=== PATIENT | female | born 1950 | race Hispanic/Latino ===

== ENCOUNTER 2023-02-09 13:54 | Emergency (ER) | payer OTHER ==
--- OUTSIDE RECORDS SUMMARY | 2023-02-09 13:59 | XMS REPORT | Continuity of Care Document ---
:1950 Author Organization [facility] t Address [address] [place] [address] [place] [id number] Care Team Providers Name Role Phone SANTANA PAYAN Primary Care Physician Unavailable Jillian Payan Attending Clinician Unavailable AIDEE VARGAS Attending Clinician Unavailable Lab, Ousmane Huertas Attending Clinician Unavailable Doctor Unassigned, [facility] Attending Clinician Unavailable Payers Payer Name Policy Type Policy Number Effective Date Expiration Date S [facility] [id number] 2020 [employer] [place] 00:00:00 PPO [facility] 1 [id number] 2021 Common TRS/ERS [facility] PPO 00:00:00 [facility] Problems Condition Condition Condition Status Onset Resolution Last Treating Co mments Source Name Details Category Date Date Treatment Clinician Date Bipolar 1 Bipolar 1 Problem Com mon disorder disorder [facility] [place] Problem Common lesion of lesion of Spir it lung lung - [facility] [id number] Nicotine Problem Commo n dependence Spirit , - [facility]I cigarettes St , with [facility] unspecifie Medica [facility] d Center nicotine-i nduced disorders Malignant Malignant Problem Com mon neoplasm neoplasm Spirit of female of - CHI breast unspecifie St d site of [facility] female Center breast Tobacco Smokes Problem Common user cigarettes [facility] Age-relate Age-relate Problem C ommon d d Spirit osteoporos osteoporos - CHI is is without St current [facility] pathologic Medica l al Center fracture Nicotine Nicotine Problem Commo n dependence dependence Sp jamil - [facility] [id number] Non-season Problem Com mon al Spirit allergic - CHI rhinitis St due to [facility] Solitary Solitary Problem Commo n pulmonary pulmonary Spir it nodule nodule - [facility] [id number] Primary Problem Common insomnia [facility] Adjustment Adjustment Problem C ommon disorder disorder Spirit with with - CHI anxiety anxiety [facility] [id number] Sleep Problem Common disorder, Spirit unspecifie - [facility]I d [facility] Bipolar Affective Problem Commo n affective bipolar Spirit disorder disorder - [facility] [id number] Bipolar 1 Problem Comm on disorder, Spirit depressed - [facility] [id number] PTSD Problem Common (post-trau Spirit matic - CHI stress St disorder) [facility] [id number] Mixed Problem Common stress and Spirit urge - CHI urinary [facility] incontinen [facility] Allergies, Adverse Reactions, Alerts Allergy Allergy Status Severity Reaction(s) Onset Inactive Treating Comm ents Source Name Type Date Date Clinician HYDROCOD DRUG Active Hallucinates Un andie ONE-ACET 1-17 ity of AMINOPHE 00:00: [address] Hydrocod Drug Active Hallucinatio Un andie one-Acet Allergy ns 1-17 ity of aminophe 00:00: [address] NO KNOWN Drug Active Univers ALLERGIE [facility] Social History Social Habit Start Date Stop Date Quantity Comments Source History of Current Smoker Common Spi rit - [facility] Use [facility] Exposure to 2022-10-17 2022-10-27 Not sure [facility]-CoV-2 00:00:00 15:03:00 [facility] (event) Branch Alcohol intake 2022-10-27 2022-10-27 Lifetime University of 00:00:00 00:00:00 non-drinker [facility] (finding) [place] Tobacco use and 2022-10-27 2022-10-27 Smokeless tobacco Un iversity of exposure 00:00:00 00:00:00 non-user [facility] Sex Assigned At [birth year] Univers[facility] 00:00:00 00:00:00 [facility] Smoking Status Start Date Stop Date Source Tobacco smoking consumption [facility] [place] [facility] Never smoked tobacco [facility] Current Smoker 2022-09-25 00:00:00 Common Spiri t - [facility] Ce nter Medications Ordered Filled Start Stop Current Ordering Indication Dosage Frequency Signature Comments Components Source Medication Medication Date Date Medication? Clinician (SIG) Name Name clonazePAM 2021-09 Yes .5mg Take 0.5 Uni vers 0.5 mg 2-22 mg by ity of tablet 00:00: mouth as [place] 00 needed. Medical Branch letrozole 2021-09 Yes 2.5mg Take 2.5 Uni vers 2.5 mg 2-22 mg by ity of tablet 00:00: mouth [place] 00 daily Medical Branch clonazePAM 2021-09 Yes .5mg Take 0.5 Uni vers 0.5 mg 2-22 mg by ity of tablet 00:00: mouth as [place] 00 needed. Medical Branch letrozole 2021-09 Yes 2.5mg Take 2.5 Uni vers 2.5 mg 2-22 mg by ity of tablet 00:00: mouth [place] daily Medical Branch clonazePAM 2021-09 Yes .5mg Take 0.5 Uni vers 0.5 mg 2-22 mg by ity of tablet 00:00: mouth as [place] 00 needed. Medical Branch letrozole 2021-09 Yes 2.5mg Take 2.5 Uni vers 2.5 mg 2-22 mg by ity of tablet 00:00: mouth [place] 00 daily Medical Branch clonazePAM 2021-09 Yes .5mg Take 0.5 Uni vers 0.5 mg 2-22 mg by ity of tablet 00:00: mouth as [place] 00 needed. Medical Branch letrozole 2021-09 Yes 2.5mg Take 2.5 Uni vers 2.5 mg 2-22 mg by ity of tablet 00:00: mouth [place] 00 daily Medical Branch clonazePAM 2021-09 Yes .5mg Take 0.5 Uni vers 0.5 mg 2-22 mg by ity of tablet 00:00: mouth as [place] 00 needed. Medical Branch letrozole 2021-09 Yes 2.5mg Take 2.5 Uni vers 2.5 mg 2-22 mg by ity of tablet 00:00: mouth [place] 00 daily Medical Branch clonazePAM 2021-09 Yes .5mg Take 0.5 Uni vers 0.5 mg 2-22 mg by ity of tablet 00:00: mouth as [place] 00 needed. Medical Branch letrozole 2021-09 Yes 2.5mg Take 2.5 Uni vers 2.5 mg 2-22 mg by ity of tablet 00:00: mouth [place] daily Medical Branch clonazePAM 2021-09 Yes .5mg Take 0.5 Uni vers 0.5 mg 2-22 mg by ity of tablet 00:00: mouth as [place] needed. Medical Branch letrozole 2021-09 Yes 2.5mg Take 2.5 Uni vers 2.5 mg 2-22 mg by ity of tablet 00:00: mouth daily Medical Branch clonazePAM 2021-09 Yes .5mg Take 0.5 Uni vers 0.5 mg 2-22 mg by ity of tablet 00:00: mouth as [place] needed. Medical Branch letrozole 2021-09 Yes 2.5mg Take 2.5 Uni vers 2.5 mg 2-22 mg by ity of tablet 00:00: mouth [place] daily Medical Branch busPIRone 5 2021-09 Yes 5mg Take 5 mg U nivers mg tablet 2-08 by mouth ity of 00:00: in the morning Medical and 5 mg Branch at noon and 5 mg in the evening. DULoxetine 2021-09 Yes 60mg Take 60 mg U nivers 60 mg 2-08 by mouth ity of capsule 00:00: in the [place] morning. Medical Branch busPIRone 5 2021-09 Yes 5mg Take 5 mg U nivers mg tablet 2-08 by mouth ity of 00:00: in the morning Medical and 5 mg Branch at noon and 5 mg in the evening. DULoxetine 2021-09 Yes 60mg Take 60 mg U nivers 60 mg 2-08 by mouth ity of capsule 00:00: in the [place] morning. Medical Branch busPIRone 5 2021-09 Yes 5mg Take 5 mg U nivers mg tablet 2-08 by mouth ity of 00:00: in the morning Medical and 5 mg Branch at noon and 5 mg in the evening. DULoxetine 2021-09 Yes 60mg Take 60 mg U nivers 60 mg 2-08 by mouth ity of capsule 00:00: in the [place] morning. Medical Branch busPIRone 5 2021-09 Yes 5mg Take 5 mg U nivers mg tablet 2-08 by mouth ity of 00:00: in the [place] morning Medical and 5 mg Branch at noon and 5 mg in the evening. DULoxetine 2021-09 Yes 60mg Take 60 mg U nivers 60 mg 2-08 by mouth ity of capsule 00:00: in the [place] morning. Medical Branch busPIRone 5 2021-09 Yes 5mg Take 5 mg U nivers mg tablet 2-08 by mouth ity of 00:00: in the [place] morning Medical and 5 mg Branch at noon and 5 mg in the evening. DULoxetine 2021-09 Yes 60mg Take 60 mg U nivers 60 mg 2-08 by mouth ity of capsule 00:00: in the [place] morning. Medical Branch busPIRone 5 2021-09 Yes 5mg Take 5 mg U nivers mg tablet 2-08 by mouth ity of 00:00: in the [place] morning Medical and 5 mg Branch at noon and 5 mg in the evening. DULoxetine 2021-09 Yes 60mg Take 60 mg U nivers 60 mg 2-08 by mouth ity of capsule 00:00: in the [place] morning. Medical Branch busPIRone 5 2021-09 Yes 5mg Take 5 mg U nivers mg tablet 2-08 by mouth ity of 00:00: in the [place] morning Medical and 5 mg Branch at noon and 5 mg in the evening. DULoxetine 2021-09 Yes 60mg Take 60 mg U nivers 60 mg 2-08 by mouth ity of capsule 00:00: in the [place] morning. Medical Branch busPIRone 5 2021-09 Yes 5mg Take 5 mg U nivers mg tablet 2-08 by mouth ity of 00:00: in the [place] morning Medical and 5 mg Branch at noon and 5 mg in the evening. DULoxetine 2021-09 Yes 60mg Take 60 mg U nivers 60 mg 2-08 by mouth ity of capsule 00:00: in the [place] morning. Medical Branch DULoxetine 2021-09 Yes 30mg Take 30 mg U nivers 30 mg 1-28 by mouth ity of capsule 00:00: in the [place] morning. Medical Branch DULoxetine 2021-09 Yes 30mg Take 30 mg U nivers 30 mg 1-28 by mouth ity of capsule 00:00: in the [place] morning. Medical Branch DULoxetine 2021-09 Yes 30mg Take 30 mg U nivers 30 mg 1-28 by mouth ity of capsule 00:00: in the [place] morning. Medical Branch DULoxetine 2021-09 Yes 30mg Take 30 mg U nivers 30 mg 1-28 by mouth ity of capsule 00:00: in the [place] morning. Medical Branch DULoxetine 2021-09 Yes 30mg Take 30 mg U nivers 30 mg 1-28 by mouth ity of capsule 00:00: in the [place] morning. Medical Branch DULoxetine 2021-09 Yes 30mg Take 30 mg U nivers 30 mg 1-28 by mouth ity of capsule 00:00: in the [place] morning. Medical Branch DULoxetine 2021-09 Yes 30mg Take 30 mg U nivers 30 mg 1-28 by mouth ity of capsule 00:00: in the [place] morning. Medical Branch DULoxetine 2021-09 Yes 30mg Take 30 mg U nivers 30 mg 1-28 by mouth ity of capsule 00:00: in the [place] morning. Medical Branch doxepin 10 2021-09 Yes 10mg Take 10 mg U nivers mg capsule 1-07 by mouth ity o f 00:00: at [place] [address] bedtime. Medical Branch doxepin 10 2021-09 Yes 10mg Take 10 mg U nivers mg capsule 1-07 by mouth ity o f 00:00: at [place] [address] bedtime. Medical Branch doxepin 10 2021-09 Yes 10mg Take 10 mg U nivers mg capsule 1-07 by mouth ity o f 00:00: at [place] [address] bedtime. Medical Branch doxepin 10 2021-09 Yes 10mg Take 10 mg U nivers mg capsule 1-07 by mouth ity o f 00:00: at [place] [address] bedtime. Medical Branch doxepin 10 2021-09 Yes 10mg Take 10 mg U nivers mg capsule 1-07 by mouth ity o f 00:00: at [place] [address] bedtime. Medical Branch doxepin 10 2021-09 Yes 10mg Take 10 mg U nivers mg capsule 1-07 by mouth ity o f 00:00: at [place] [address] bedtime. Medical Branch doxepin 10 2021-09 Yes 10mg Take 10 mg U nivers mg capsule 1-07 by mouth ity o f 00:00: at [place] [address] bedtime. Medical Branch doxepin 10 2021-09 Yes 10mg Take 10 mg U nivers mg capsule -07 by mouth ity o f 00:00: at [place] [address] bedtime. Medical Branch Doxylamine Doxylamine No 1{table QD Doxylamine Succinate Succinate 3-08 t_at_be Succinate (Sleep) 25 (Sleep) 25 00:00: dtime_a (Sleep) 25 MG MG 00 s_neede MG d} Doxylamine Doxylamine No 1{table QD Doxylamine Succinate Succinate 3-08 t_at_be Succinate (Sleep) 25 (Sleep) 25 00:00: dtime_a (Sleep) 25 MG MG 00 s_neede MG d} Doxylamine Doxylamine No 1{table QD Doxylamine Succinate Succinate 3-08 t_at_be Succinate (Sleep) 25 (Sleep) 25 00:00: dtime_a (Sleep) 25 MG MG 00 s_neede MG d} Doxylamine Doxylamine No 1{table QD Doxylamine Succinate Succinate 3-08 t_at_be Succinate (Sleep) 25 (Sleep) 25 00:00: dtime_a (Sleep) 25 MG MG 00 s_neede MG d} Doxylamine Doxylamine No 1{table QD Doxylamine Succinate Succinate 3-08 t_at_be Succinate (Sleep) 25 (Sleep) 25 00:00: dtime_a (Sleep) 25 MG MG 00 s_neede MG d} Doxylamine Doxylamine No 1{table QD Doxylamine Succinate Succinate 3-08 t_at_be Succinate (Sleep) 25 (Sleep) 25 00:00: dtime_a (Sleep) 25 MG MG 00 s_neede MG d} Doxylamine Doxylamine No 1{table QD Doxylamine Succinate Succinate 3-08 t_at_be Succinate (Sleep) 25 (Sleep) 25 00:00: dtime_a (Sleep) 25 MG MG 00 s_neede MG d} Doxylamine Doxylamine No 1{table QD Doxylamine Succinate Succinate 3-08 t_at_be Succinate (Sleep) 25 (Sleep) 25 00:00: dtime_a (Sleep) 25 MG MG 00 s_neede MG d} Doxylamine Doxylamine No 1{table QD Doxylamine Succinate Succinate 3-08 t_at_be Succinate (Sleep) 25 (Sleep) 25 00:00: dtime_a (Sleep) 25 MG MG 00 s_neede MG d} Doxylamine Doxylamine No 1{table QD Doxylamine Succinate Succinate 3-08 t_at_be Succinate (Sleep) 25 (Sleep) 25 00:00: dtime_a (Sleep) 25 MG MG 00 s_neede MG d} Doxylamine Doxylamine No 1{table QD Doxylamine Succinate Succinate 3-08 t_at_be Succinate (Sleep) 25 (Sleep) 25 00:00: dtime_a (Sleep) 25 MG MG 00 s_neede MG d} Doxylamine Doxylamine No 1{table QD Doxylamine Succinate Succinate 3-08 t_at_be Succinate (Sleep) 25 (Sleep) 25 00:00: dtime_a (Sleep) 25 MG MG 00 s_neede MG d} Doxylamine Doxylamine No 1{table QD Doxylamine Succinate Succinate 3-08 t_at_be Succinate (Sleep) 25 (Sleep) 25 00:00: dtime_a (Sleep) 25 MG MG 00 s_neede MG d} Doxylamine Doxylamine 0 No 1{table QD Doxylamine Succinate Succinate 3-08 t_at_be Succinate (Sleep) 25 (Sleep) 25 00:00: dtime_a (Sleep) 25 MG MG 00 s_neede MG d} Toradol Toradol No 30mg Common (Ketorolac) (Ketorolac) 2-28 S pirit 00:00: - [facility] [place] No 40mg Common (Triamcinol (Triamcinol 2-28 S pirit one) one) 00:00: - [facility]I [facility] Toradol Toradol No 30mg Common (Ketorolac) (Ketorolac) 2-28 S pirit 00:00: - [facility] 2021-0 No 40mg Common (Triamcinol (Triamcinol 2-28 S pirit one) one) 00:00: - CHI 00 [facility] Toradol Toradol 2021-0 No 30mg Common (Ketorolac) (Ketorolac) 2-28 S pirit 00:00: - CHI 00 [facility] Kenalog Kenalog 2021-0 No 40mg Common (Triamcinol (Triamcinol 2-28 S pirit one) one) 00:00: - CHI 00 [facility] Toradol Toradol 2021-0 No 30mg Common (Ketorolac) (Ketorolac) 2-28 S pirit 00:00: - CHI 00 [facility] Nelly Kenalog 2021-0 No 40mg Common (Triamcinol (Triamcinol 2-28 S pirit one) one) 00:00: - CHI 00 [facility] Toradol Toradol 2021-0 No 30mg Common (Ketorolac) (Ketorolac) 2-28 S pirit 00:00: - CHI 00 [facility] [place] Kenalog 2021-0 No 40mg Common (Triamcinol (Triamcinol 2-28 S pirit one) one) 00:00: - CHI 00 [facility] Toradol Toradol 2021-0 No 30mg Common (Ketorolac) (Ketorolac) 2-28 S pirit 00:00: - CHI 00 [facility] Nelly Kenalog 2021-0 No 40mg Common (Triamcinol (Triamcinol 2-28 S pirit one) one) 00:00: - CHI 00 [facility] Toradol Toradol 2021-0 No 30mg Common (Ketorolac) (Ketorolac) 2-28 S pirit 00:00: - CHI 00 [facility] Kenalog Kenalog 2021-0 No 40mg Common (Triamcinol (Triamcinol 2-28 S pirit one) one) 00:00: - CHI 00 [facility] Toradol Toradol 2021-0 No 30mg Common (Ketorolac) (Ketorolac) 2-28 S pirit 00:00: - CHI 00 [facility] Kenalog Kenalog 2021-0 No 40mg Common (Triamcinol (Triamcinol 2-28 S pirit one) one) 00:00: - CHI 00 [facility] Toradol Toradol 2021-0 No 30mg Common (Ketorolac) (Ketorolac) 2-28 S pirit 00:00: - CHI 00 [facility] Kenalog Kenalog 2021-0 No 40mg Common (Triamcinol (Triamcinol 2-28 S pirit one) one) 00:00: - CHI 00 [facility] Toradol Toradol 2021-0 No 30mg Common (Ketorolac) (Ketorolac) 2-28 S pirit 00:00: - CHI [facility] Kenalog Kenalog 2021-0 No 40mg Common (Triamcinol (Triamcinol 2-28 S pirit one) one) 00:00: - [facility]I [facility] Toradol Toradol 2021-0 No 30mg Common (Ketorolac) (Ketorolac) 2-28 S pirit 00:00: - CHI 00 [facility] Lucasalog Kenalog 2021-0 No 40mg Common (Triamcinol (Triamcinol 2-28 S pirit one) one) 00:00: - CHI 00 [facility] Toradol Toradol 2021-0 No 30mg Common (Ketorolac) (Ketorolac) 2-28 S pirit 00:00: - CHI [facility] Lucasalog Kenalog 2021-0 No 40mg Common (Triamcinol (Triamcinol 2-28 S pirit one) one) 00:00: - CHI 00 [facility] Toradol Toradol 2021-0 No 30mg Common (Ketorolac) (Ketorolac) 2-28 S pirit 00:00: - CHI 00 [facility] Kenalog Kenalog 2021-0 No 40mg Common (Triamcinol (Triamcinol 2-28 S pirit one) one) 00:00: - [facility] Toradol Toradol 2021-0 No 30mg Common (Ketorolac) (Ketorolac) 2-28 S pirit 00:00: - CHI 00 [facility] Kenalog Kenalog 2021-0 No 40mg Common (Triamcinol (Triamcinol 2-28 S pirit one) one) 00:00: - CHI 00 [facility] Toradol Toradol 2021-0 No 30mg Common (Ketorolac) (Ketorolac) 2-28 S pirit 00:00: - CHI 00 [facility] Kenalog Kenalog 2021-0 No 40mg Common (Triamcinol (Triamcinol 2-28 S pirit one) one) 00:00: - CHI 00 [facility] Oxybutynin Oxybutynin 2021-0 2- No 1{table QD Oxybutynin Chloride 5 Chloride 5 11-11- t} Chloride 5 MG MG 00:00: 00:00 MG 00 :00 Oxybutynin Oxybutynin 2021-0 2- No 1{table QD Oxybutynin Chloride 5 Chloride 5 11-11-06 t} Chloride 5 MG MG 00:00: 00:00 MG 00 :00 Oxybutynin Oxybutynin 2021-0 2- No 1{table QD Oxybutynin Chloride 5 Chloride 5 11-11-06 t} Chloride 5 MG MG 00:00: 00:00 MG 00 :00 tiZANidine tiZANidine 2021-0 2021- No 1{table QD tiZANidine HCl 2 MG HCl 2 MG 11-11- t_as_ne HCl 2 MG 00:00: 00:00 eded} 00 :00 tiZANidine tiZANidine 2021-0 2- No 1{table QD tiZANidine HCl 2 MG HCl 2 MG 11-11- t_as_ne HCl 2 MG 00:00: 00:00 eded} 00 :00 Oxybutynin Oxybutynin 2021-0 2- No 1{table QD Oxybutynin Chloride 5 Chloride 5 11-1130 t} Chloride 5 MG MG 00:00: 00:00 MG 00 :00 tiZANidine tiZANidine 2021-0 2- No 1{table QD tiZANidine HCl 2 MG HCl 2 MG 11-11 t_as_ne HCl 2 MG 00:00: 00:00 eded} 00 :00 Loratadine Loratadine 2021- No 1{table QD Loratadine 10 MG 10 MG 11-11 t} 10 MG 00:00: 00:00 00 :00 tiZANidine tiZANidine 2021- No 1{table QD tiZANidine HCl 2 MG HCl 2 MG 11-11 t_as_ne HCl 2 MG 00:00: 00:00 eded} 00 :00 Loratadine Loratadine 2021- No 1{table QD Loratadine 10 MG 10 MG 11-11 t} 10 MG 00:00: 00:00 00 :00 Femara 2.5 Femara 2.5 No 1{table QD Femara 2.5 MG MG t} MG LaMICtal 25 LaMICtal 25 No 1{table LaMICtal MG MG t} 25 MG Calcium + D Calcium + D No Calcium + D Fluticasone Fluticasone No 1{spray QD Fluticason Propionate Propionate _in_eac e 50 MCG/ACT 50 MCG/ACT h_nostr Propionate il} 50 MCG/ACT Cymbalta 30 Cymbalta 30 No 1{capsu QD Cymbalta MG MG le} 30 MG busPIRone busPIRone No 1{table TID busPIRone HCl 5 MG HCl 5 MG t} HCl 5 MG clonazePAM clonazePAM No clonazePAM 0.5 MG 0.5 MG 0.5 MG Zinc Zinc No Zinc Cymbalta 60 Cymbalta 60 No 1{capsu QD Cymbalta MG MG le} 60 MG Multiminera Multiminera No Multiminer l Plus l Plus al Plus Vitamin C Vitamin C No Vitamin C Vitamin C Vitamin C No Vitamin C Calcium + D Calcium + D No Calcium + D busPIRone busPIRone No 1{table TID busPIRone HCl 5 MG HCl 5 MG t} HCl 5 MG Femara 2.5 Femara 2.5 No 1{table QD Femara 2.5 MG MG t} MG LaMICtal 25 LaMICtal 25 No 1{table LaMICtal MG MG t} 25 MG Multiminera Multiminera No Multiminer l Plus l Plus al Plus clonazePAM clonazePAM No clonazePAM 0.5 MG 0.5 MG 0.5 MG Fluticasone Fluticasone No Fluticason Propionate Propionate e 50 MCG/ACT 50 MCG/ACT Propionate 50 MCG/ACT Zinc Zinc No Zinc Cymbalta 60 Cymbalta 60 No 1{capsu QD Cymbalta MG MG le} 60 MG Cymbalta 30 Cymbalta 30 No 1{capsu QD Cymbalta MG MG le} 30 MG clonazePAM clonazePAM No clonazePAM 0.5 MG 0.5 MG 0.5 MG Fluticasone Fluticasone No Fluticason Propionate Propionate e 50 MCG/ACT 50 MCG/ACT Propionate 50 MCG/ACT Femara 2.5 Femara 2.5 No 1{table QD Femara 2.5 MG MG t} MG busPIRone busPIRone No 1{table TID busPIRone HCl 5 MG HCl 5 MG t} HCl 5 MG Multiminera Multiminera No Multiminer l Plus l Plus al Plus Cymbalta 30 Cymbalta 30 No 1{capsu QD Cymbalta MG MG le} 30 MG Calcium + D Calcium + D No Calcium + D Zinc Zinc No Zinc LaMICtal 25 LaMICtal 25 No 1{table LaMICtal MG MG t} 25 MG Cymbalta 60 Cymbalta 60 No 1{capsu QD Cymbalta MG MG le} 60 MG Vitamin C Vitamin C No Vitamin C clonazePAM clonazePAM No clonazePAM 0.5 MG 0.5 MG 0.5 MG Fluticasone Fluticasone No Fluticason Propionate Propionate e 50 MCG/ACT 50 MCG/ACT Propionate 50 MCG/ACT Femara 2.5 Femara 2.5 No 1{table QD Femara 2.5 MG MG t} MG busPIRone busPIRone No 1{table TID busPIRone HCl 5 MG HCl 5 MG t} HCl 5 MG Multiminera Multiminera No Multiminer l Plus l Plus al Plus Cymbalta 30 Cymbalta 30 No 1{capsu QD Cymbalta MG MG le} 30 MG Calcium + D Calcium + D No Calcium + D Zinc Zinc No Zinc LaMICtal 25 LaMICtal 25 No 1{table LaMICtal MG MG t} 25 MG Cymbalta 60 Cymbalta 60 No 1{capsu QD Cymbalta MG MG le} 60 MG Vitamin C Vitamin C No Vitamin C busPIRone busPIRone No 1{table TID busPIRone HCl 5 MG HCl 5 MG t} HCl 5 MG Vitamin C Vitamin C No Vitamin C tiZANidine tiZANidine No 1{table QD tiZANidine HCl 4 MG HCl 4 MG t_as_ne HCl 4 MG eded} LaMICtal 25 LaMICtal 25 No 1{table LaMICtal MG MG t} 25 MG Zinc Zinc No Zinc Multiminera Multiminera No Multiminer l Plus l Plus al Plus Cymbalta 30 Cymbalta 30 No 1{capsu QD Cymbalta MG MG le} 30 MG clonazePAM clonazePAM No clonazePAM 0.5 MG 0.5 MG 0.5 MG Femara 2.5 Femara 2.5 No 1{table QD Femara 2.5 MG MG t} MG Calcium + D Calcium + D No Calcium + D Fluticasone Fluticasone No Fluticason Propionate Propionate e 50 MCG/ACT 50 MCG/ACT Propionate 50 MCG/ACT Cymbalta 60 Cymbalta 60 No 1{capsu QD Cymbalta MG MG le} 60 MG busPIRone busPIRone No 1{table TID busPIRone HCl 5 MG HCl 5 MG t} HCl 5 MG Vitamin C Vitamin C No Vitamin C tiZANidine tiZANidine No 1{table QD tiZANidine HCl 4 MG HCl 4 MG t_as_ne HCl 4 MG eded} LaMICtal 25 LaMICtal 25 No 1{table LaMICtal MG MG t} 25 MG Zinc Zinc No Zinc Multiminera Multiminera No Multiminer l Plus l Plus al Plus Cymbalta 30 Cymbalta 30 No 1{capsu QD Cymbalta MG MG le} 30 MG clonazePAM clonazePAM No clonazePAM 0.5 MG 0.5 MG 0.5 MG Femara 2.5 Femara 2.5 No 1{table QD Femara 2.5 MG MG t} MG Calcium + D Calcium + D No Calcium + D Fluticasone Fluticasone No Fluticason Propionate Propionate e 50 MCG/ACT 50 MCG/ACT Propionate 50 MCG/ACT Cymbalta 60 Cymbalta 60 No 1{capsu QD Cymbalta MG MG le} 60 MG busPIRone busPIRone No 1{table TID busPIRone HCl 5 MG HCl 5 MG t} HCl 5 MG Vitamin C Vitamin C No Vitamin C tiZANidine tiZANidine No 1{table QD tiZANidine HCl 4 MG HCl 4 MG t_as_ne HCl 4 MG eded} LaMICtal 25 LaMICtal 25 No 1{table LaMICtal MG MG t} 25 MG Zinc Zinc No Zinc Multiminera Multiminera No Multiminer l Plus l Plus al Plus Cymbalta 30 Cymbalta 30 No 1{capsu QD Cymbalta MG MG le} 30 MG clonazePAM clonazePAM No clonazePAM 0.5 MG 0.5 MG 0.5 MG Femara 2.5 Femara 2.5 No 1{table QD Femara 2.5 MG MG t} MG Calcium + D Calcium + D No Calcium + D Fluticasone Fluticasone No Fluticason Propionate Propionate e 50 MCG/ACT 50 MCG/ACT Propionate 50 MCG/ACT Cymbalta 60 Cymbalta 60 No 1{capsu QD Cymbalta MG MG le} 60 MG Femara 2.5 Femara 2.5 No 1{table QD Femara 2.5 MG MG t} MG Loratadine Loratadine No Loratadine 10 MG 10 MG 10 MG tiZANidine tiZANidine No 1{table QD tiZANidine HCl 4 MG HCl 4 MG t_as_ne HCl 4 MG eded} LaMICtal 25 LaMICtal 25 No 1{table LaMICtal MG MG t} 25 MG Multiminera Multiminera No Multiminer l Plus l Plus al Plus busPIRone busPIRone No 1{table TID busPIRone HCl 5 MG HCl 5 MG t} HCl 5 MG Vitamin C Vitamin C No Vitamin C Calcium + D Calcium + D No Calcium + D Cymbalta 60 Cymbalta 60 No 1{capsu QD Cymbalta MG MG le} 60 MG Zinc Zinc No Zinc Fluticasone Fluticasone No Fluticason Propionate Propionate e 50 MCG/ACT 50 MCG/ACT Propionate 50 MCG/ACT Cymbalta 30 Cymbalta 30 No 1{capsu QD Cymbalta MG MG le} 30 MG clonazePAM clonazePAM No clonazePAM 0.5 MG 0.5 MG 0.5 MG Femara 2.5 Femara 2.5 No 1{table QD Femara 2.5 MG MG t} MG Loratadine Loratadine No Loratadine 10 MG 10 MG 10 MG tiZANidine tiZANidine No 1{table QD tiZANidine HCl 4 MG HCl 4 MG t_as_ne HCl 4 MG eded} LaMICtal 25 LaMICtal 25 No 1{table LaMICtal MG MG t} 25 MG Multiminera Multiminera No Multiminer l Plus l Plus al Plus busPIRone busPIRone No 1{table TID busPIRone HCl 5 MG HCl 5 MG t} HCl 5 MG Vitamin C Vitamin C No Vitamin C Calcium + D Calcium + D No Calcium + D Cymbalta 60 Cymbalta 60 No 1{capsu QD Cymbalta MG MG le} 60 MG Zinc Zinc No Zinc Fluticasone Fluticasone No Fluticason Propionate Propionate e 50 MCG/ACT 50 MCG/ACT Propionate 50 MCG/ACT Cymbalta 30 Cymbalta 30 No 1{capsu QD Cymbalta MG MG le} 30 MG clonazePAM clonazePAM No clonazePAM 0.5 MG 0.5 MG 0.5 MG Cymbalta 60 Cymbalta 60 No 1{capsu QD Cymbalta MG MG le} 60 MG Fluticasone Fluticasone No Fluticason Propionate Propionate e 50 MCG/ACT 50 MCG/ACT Propionate 50 MCG/ACT Doxepin HCl Doxepin HCl No 1{capsu TID Doxepin 10 MG 10 MG le_with HCl 10 MG _food} LaMICtal 25 LaMICtal 25 No 1{table LaMICtal MG MG t} 25 MG Cymbalta 30 Cymbalta 30 No 1{capsu QD Cymbalta MG MG le} 30 MG Zinc Zinc No Zinc busPIRone busPIRone No 1{table TID busPIRone HCl 5 MG HCl 5 MG t} HCl 5 MG Femara 2.5 Femara 2.5 No 1{table QD Femara 2.5 MG MG t} MG Calcium + D Calcium + D No Calcium + D Multiminera Multiminera No Multiminer l Plus l Plus al Plus Loratadine Loratadine No Loratadine 10 MG 10 MG 10 MG Vitamin C Vitamin C No Vitamin C clonazePAM clonazePAM No clonazePAM 0.5 MG 0.5 MG 0.5 MG Zinc Zinc No Zinc busPIRone busPIRone No 1{table TID busPIRone HCl 5 MG HCl 5 MG t} HCl 5 MG Doxepin HCl Doxepin HCl No 1{capsu TID Doxepin 10 MG 10 MG le_with HCl 10 MG _food} Fluticasone Fluticasone No Fluticason Propionate Propionate e 50 MCG/ACT 50 MCG/ACT Propionate 50 MCG/ACT Multiminera Multiminera No Multiminer l Plus l Plus al Plus Cymbalta 30 Cymbalta 30 No 1{capsu QD Cymbalta MG MG le} 30 MG Vitamin C Vitamin C No Vitamin C Loratadine Loratadine No Loratadine 10 MG 10 MG 10 MG Cymbalta 60 Cymbalta 60 No 1{capsu QD Cymbalta MG MG le} 60 MG Femara 2.5 Femara 2.5 No 1{table QD Femara 2.5 MG MG t} MG LaMICtal 25 LaMICtal 25 No 1{table LaMICtal MG MG t} 25 MG Calcium + D Calcium + D No Calcium + D clonazePAM clonazePAM No clonazePAM 0.5 MG 0.5 MG 0.5 MG Zinc Zinc No Zinc busPIRone busPIRone No 1{table TID busPIRone HCl 5 MG HCl 5 MG t} HCl 5 MG Doxepin HCl Doxepin HCl No 1{capsu TID Doxepin 10 MG 10 MG le_with HCl 10 MG _food} Fluticasone Fluticasone No Fluticason Propionate Propionate e 50 MCG/ACT 50 MCG/ACT Propionate 50 MCG/ACT Multiminera Multiminera No Multiminer l Plus l Plus al Plus Cymbalta 30 Cymbalta 30 No 1{capsu QD Cymbalta MG MG le} 30 MG Vitamin C Vitamin C No Vitamin C Loratadine Loratadine No Loratadine 10 MG 10 MG 10 MG Cymbalta 60 Cymbalta 60 No 1{capsu QD Cymbalta MG MG le} 60 MG Femara 2.5 Femara 2.5 No 1{table QD Femara 2.5 MG MG t} MG LaMICtal 25 LaMICtal 25 No 1{table LaMICtal MG MG t} 25 MG Calcium + D Calcium + D No Calcium + D clonazePAM clonazePAM No clonazePAM 0.5 MG 0.5 MG 0.5 MG Multiminera Multiminera No Multiminer l Plus l Plus al Plus Cymbalta 30 Cymbalta 30 No 1{capsu QD Cymbalta MG MG le} 30 MG Fluticasone Fluticasone No Fluticason Propionate Propionate e 50 MCG/ACT 50 MCG/ACT Propionate 50 MCG/ACT Vitamin C Vitamin C No Vitamin C Zinc Zinc No Zinc Femara 2.5 Femara 2.5 No 1{table QD Femara 2.5 MG MG t} MG Calcium + D Calcium + D No Calcium + D busPIRone busPIRone No 1{table TID busPIRone HCl 5 MG HCl 5 MG t} HCl 5 MG clonazePAM clonazePAM No clonazePAM 0.5 MG 0.5 MG 0.5 MG Loratadine Loratadine No Loratadine 10 MG 10 MG 10 MG LaMICtal 25 LaMICtal 25 No 1{table LaMICtal MG MG t} 25 MG Cymbalta 60 Cymbalta 60 No 1{capsu QD Cymbalta MG MG le} 60 MG Doxepin HCl Doxepin HCl No 1{capsu TID Doxepin 10 MG 10 MG le_with HCl 10 MG _food} Cymbalta 60 Cymbalta 60 No 1{capsu QD Cymbalta MG MG le} 60 MG Fluticasone Fluticasone No Fluticason Propionate Propionate e 50 MCG/ACT 50 MCG/ACT Propionate 50 MCG/ACT Doxepin HCl Doxepin HCl No 1{capsu TID Doxepin 10 MG 10 MG le_with HCl 10 MG _food} LaMICtal 25 LaMICtal 25 No 1{table LaMICtal MG MG t} 25 MG Cymbalta 30 Cymbalta 30 No 1{capsu QD Cymbalta MG MG le} 30 MG Zinc Zinc No Zinc busPIRone busPIRone No 1{table TID busPIRone HCl 5 MG HCl 5 MG t} HCl 5 MG Femara 2.5 Femara 2.5 No 1{table QD Femara 2.5 MG MG t} MG Calcium + D Calcium + D No Calcium + D Multiminera Multiminera No Multiminer l Plus l Plus al Plus Loratadine Loratadine No Loratadine 10 MG 10 MG 10 MG Vitamin C Vitamin C No Vitamin C clonazePAM clonazePAM No clonazePAM 0.5 MG 0.5 MG 0.5 MG Zinc Zinc No Zinc busPIRone busPIRone No 1{table TID busPIRone HCl 5 MG HCl 5 MG t} HCl 5 MG Doxepin HCl Doxepin HCl No 1{capsu TID Doxepin 10 MG 10 MG le_with HCl 10 MG _food} Fluticasone Fluticasone No Fluticason Propionate Propionate e 50 MCG/ACT 50 MCG/ACT Propionate 50 MCG/ACT Multiminera Multiminera No Multiminer l Plus l Plus al Plus Cymbalta 30 Cymbalta 30 No 1{capsu QD Cymbalta MG MG le} 30 MG Vitamin C Vitamin C No Vitamin C Loratadine Loratadine No Loratadine 10 MG 10 MG 10 MG Cymbalta 60 Cymbalta 60 No 1{capsu QD Cymbalta MG MG le} 60 MG Femara 2.5 Femara 2.5 No 1{table QD Femara 2.5 MG MG t} MG LaMICtal 25 LaMICtal 25 No 1{table LaMICtal MG MG t} 25 MG Calcium + D Calcium + D No Calcium + D clonazePAM clonazePAM No clonazePAM 0.5 MG 0.5 MG 0.5 MG Immunizations Ordered Filled Immunization Date Status Comments Sourc e Immunization Name Name FLUZONE HIGH DOSE FLUZONE HIGH DOSE 2021-09-13 [facility] - [facility] OVER [facility] 13:44:[facility] FLUZONE HIGH DOSE FLUZONE HIGH DOSE 2021-09-13 Completed [facility] - OVER 65 OVER 65 13:44:00 [facility] FLUZONE HIGH DOSE FLUZONE HIGH DOSE 2021-09-13 Completed [facility] - OVER 65 OVER 65 13:44:00 [facility] FLUZONE HIGH DOSE FLUZONE HIGH DOSE 2021-09-13 Completed [facility] - OVER 65 OVER 65 13:44:00 [facility] FLUZONE HIGH DOSE FLUZONE HIGH DOSE 2021-09-13 Completed [facility] - OVER 65 OVER 65 13:44:00 [facility] FLUZONE HIGH DOSE FLUZONE HIGH DOSE 2021-09-13 Completed [facility] - OVER 65 OVER 65 13:44:00 [facility] FLUZONE HIGH DOSE FLUZONE HIGH DOSE 2021-09-13 Completed [facility] - OVER 65 OVER 65 13:44:00 [facility] FLUZONE HIGH DOSE FLUZONE HIGH DOSE 2021-09-13 Completed [facility] - OVER 65 OVER 65 13:44:00 [facility] FLUZONE HIGH DOSE FLUZONE HIGH DOSE 2021-09-13 Completed [facility] - OVER 65 OVER 65 13:44:00 [facility] FLUZONE HIGH DOSE FLUZONE HIGH DOSE 2021-09-13 Completed [facility] - OVER 65 OVER 65 13:44:00 [facility] FLUZONE HIGH DOSE FLUZONE HIGH DOSE 2021-09-13 Completed [facility] - OVER 65 OVER 65 13:44:00 [facility] FLUZONE HIGH DOSE FLUZONE HIGH DOSE 2021-09-13 Completed [facility] - OVER 65 OVER 65 13:44:00 [facility] FLUZONE HIGH DOSE FLUZONE HIGH DOSE 2021-09-13 Completed [facility] - OVER 65 OVER 65 13:44:00 [facility] FLUZONE HIGH DOSE FLUZONE HIGH DOSE 2021-09-13 Completed [facility] - OVER 65 OVER 65 13:44:00 [facility] FLUZONE HIGH DOSE FLUZONE HIGH DOSE 2021-09-13 Completed [facility] - OVER 65 OVER 65 13:44:00 [facility] SARS-COV-2 COVID-19 2020-12-22 Completed [facility] of PFIZER VACCINE 00:00:00 [facility] SARS-COV-2 COVID-19 2020-12-22 Completed Unive rsity of PFIZER VACCINE 00:00:00 [facility] SARS-COV-2 COVID-19 2020-12-22 Completed Unive rsity of PFIZER VACCINE 00:00:00 [facility] SARS-COV-2 COVID-19 2020-12-22 Completed [facility]ive rsity of PFIZER VACCINE 00:00:00 [facility] SARS-COV-2 COVID-19 2020-12-22 Completed [facility]ive rsity of PFIZER VACCINE 00:00:00 [facility] SARS-COV-2 COVID-19 2020-12-22 Completed [facility]ive rsity of PFIZER VACCINE 00:00:00 [facility] SARS-COV-2 COVID-19 2020-12-22 Completed [facility]ive rs[facility] of PFIZER VACCINE 00:00:00 [facility] SARS-COV-2 COVID-19 2020-12-22 Completed Unive rsity of PFIZER VACCINE 00:00:00 [facility] SARS-COV-2 COVID-19 2020-12-22 Completed Unive rsity of PFIZER VACCINE 00:00:00 [facility] SARS-COV-2 COVID-19 2020-12-01 Completed Unive rsity of PFIZER VACCINE 00:00:00 [facility] SARS-COV-2 COVID-19 2020-12-01 Completed Unive rsity of PFIZER VACCINE 00:00:00 [facility] SARS-COV-2 COVID-19 2020-12-01 Completed [facility]ive rsity of PFIZER VACCINE 00:00:00 [facility] SARS-COV-2 COVID-19 2020-12-01 Completed [facility]ive rsity of PFIZER VACCINE 00:00:00 [facility] SARS-COV-2 COVID-19 2020-12-01 Completed [facility]ive rs[facility] of PFIZER VACCINE 00:00:00 [facility] SARS-COV-2 COVID-19 2020-12-01 Completed [facility]ive rsity of PFIZER VACCINE 00:00:00 [facility] SARS-COV-2 COVID-19 2020-12-01 Completed [facility]ive rs[facility] of PFIZER VACCINE 00:00:00 [facility] SARS-COV-2 COVID-19 2020-12-01 Completed [facility] rs[facility] of PFIZER VACCINE 00:00:00 [facility] SARS-COV-2 COVID-19 2020-12-01 Completed [facility]ive rs[facility] of PFIZER VACCINE 00:00:00 [facility] Vital Signs Vital Name Observation Time Observation Value Comments Source Systolic blood 2022-10-27 21:34:00 145 mm[Hg] [facility]iver [facility] of pressure [facility] Diastolic blood 2022-10-27 21:34:00 75 mm[Hg] [facility]ive rs[facility] of pressure [facility] Heart rate 2022-10-27 21:34:00 84 /min [facility] Body height 2022-10-27 21:28:00 154.9 cm [facility] Body weight 2022-10-27 21:28:00 49.442 kg Universi ty [facility] BMI 2022-10-27 21:28:00 20.60 kg/m2 Universi ty [facility] Systolic blood 2022-09-30 17:15:00 129 mm[Hg] Univer sity of pressure [facility] Diastolic blood 2022-09-30 17:15:00 85 mm[Hg] Unive rsity of [facility] Heart rate 2022-09-30 17:14:00 84 /min Universi ty [facility] Body height 2022-09-30 17:14:00 154.9 cm Universi ty [facility] Body weight 2022-09-30 17:14:00 49.442 kg Universi [facility] BMI 2022-09-30 17:14:00 20.60 kg/m2 [facility] Oxygen saturation in 2022-09-30 17:14:00 100 /min [facility] Arterial blood by [facility] Pulse oximetry Branch height 2022-06-11 08:00:00 61.5 [in_i] [facility] weight 2022-06-11 08:00:00 109.6 [lb_av] [facility] temperature 2022-06-11 08:00:00 98.6 [degF] [facility] bmi 2022-06-11 08:00:00 20.37 kg/m2 [facility] oximetry 2022-06-11 08:00:00 97 % [facility] respiratory rate 2022-06-11 08:00:00 16 /min Comm on [facility] blood pressure 2022-06-11 08:00:00 137 mm[Hg] [facility] systolic [facility] blood pressure 2022-06-11 08:00:00 66 mm[Hg] [facility] diastolic [facility] height 2022-02-21 13:00:00 61 [in_i] [facility] weight 2022-02-21 13:00:00 110.4 [lb_av] Common [facility] temperature 2022-02-21 13:00:00 97.6 [degF] [facility] bmi 2022-02-21 13:00:00 20.86 kg/m2 [facility] oximetry 2022-02-21 13:00:00 98 % Common [facility] respiratory rate 2022-02-21 13:00:00 16 /min Comm on [facility] blood pressure 2022-02-21 13:00:00 132 mm[Hg] Common [facility] - systolic [facility] blood pressure 2022-02-21 13:00:00 72 mm[Hg] Common [facility] - diastolic [facility] height 2022-02-21 13:00:00 61 [in_i] Common [facility] weight 2022-02-21 13:00:00 110.4 [lb_av] [facility] temperature 2022-02-21 13:00:00 97.6 [degF] Common [facility] bmi 2022-02-21 13:00:00 20.86 kg/m2 [facility] oximetry 2022-02-21 13:00:00 98 % Common [facility] respiratory rate 2022-02-21 13:00:00 16 /min Comm on [facility] blood pressure 2022-02-21 13:00:00 132 mm[Hg] [facility] blood pressure 2022-02-21 13:00:00 72 mm[Hg] [facility] height 2021-11-19 15:40:00 61 [in_i] Common [facility] weight 2021-11-19 15:40:00 114.8 [lb_av] Common [facility] temperature 2021-11-19 15:40:00 97.6 [degF] Common [facility] bmi 2021-11-19 15:40:00 21.69 kg/m2 Common [facility] oximetry 2021-11-19 15:40:00 98 % [facility] respiratory rate 2021-11-19 15:40:00 16 /min Comm on [facility] blood pressure 2021-11-19 15:40:00 135 mm[Hg] Common [facility] - systolic [facility] blood pressure 2021-11-19 15:40:00 75 mm[Hg] Common [facility] diastolic [facility] height 2021-11-11 13:20:00 61 [in_i] [facility] weight 2021-11-11 13:20:00 118.2 [lb_av] [facility] temperature 2021-11-11 13:20:00 97.3 [degF] [facility] bmi 2021-11-11 13:20:00 22.33 kg/m2 [facility] oximetry 2021-11-11 13:20:00 95 % [facility] respiratory rate 2021-11-11 13:20:00 16 /min Comm on [facility] blood pressure 2021-11-11 13:20:00 128 mm[Hg] Common [facility] systolic [facility] blood pressure 2021-11-11 13:20:00 76 mm[Hg] Common [facility] diastolic [facility] Procedures Procedure Date / Time Performed Performing Clinician [facility] e ASSIGNMENT OF BENEFITS 2022-09-30 16:59:40 Doctor Unassigned, No [facility] Encounters Start End Encounter Admission Attending Care Care Encounter Source Date/Time Date/Time Type Type Clinicians Facility Department ID 2022-12-30 Outpatient Payan, STLMLC [facility] [id number] Common 16:01:00 Jillian [id number] [facility] 2022-09-23 [facility] [id number] Common 07:59:01 Jillian [id number] [facility] 2022-02-19 [facility] [id number] Common 09:06:03 Jillian [id number] [facility] 2021-11-15 Out[facility] [id number] Common 14:28:01 Jillian [facility] 2021-11-11 Outpatient Payan, STARISLC [facility] [id number] Common 13:26:03 Jillian [facility] 2022-10-27 2022-10-27 Outpatient R GURWINDER [facility] [id number] Univers 15:30:00 17:26:37 qamar [facility] 2022-10-27 2022-10-27 Office [facility] [id number] Univers 15:30:00 17:26:37 Visit [employer] [id number] it y of [place] [id number] Pablo as ABBIE?BLEA [phone] [address] OFFICE [facility] 2022-10-03 2022-10-03 Telephone [facility] [id number] Univers 00:00:00 00:00:00 [employer] [id number] it y of [place] [id number] Pablo as ABBIE?BLEA [phone] [address] OFFICE [facility] 2022-10-03 2022-10-03 Telephone [facility] [id number] Univers 00:00:00 00:00:00 [employer] [id number] it y of [place] [id number] Pablo as ABBIE?BLEA [phone] [address] OFFICE [facility] 2022-10-03 2022-10-03 (TEL) [facility] [id number] Co mmon 00:00:00 00:00:00 [facility] 2022-10-02 2022-10-02 Telephone Gurwinder [facility] [id number] Univers 00:00:00 00:00:00 [employer] [id number] it y of [place] [id number] Pablo as ABBIE?BLEA [phone] [address] MEDICAL OFFICE [facility] 2022-09-30 2022-09-30 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, 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 [facility] [id number] Univers 12:00:00 12:15:00 Visit Aidee Vargas [facility] [id number] ity of [place] [id number] Pablo as ABBIE?BLEA [phone] [address] OFFICE [facility] 2022-09-30 2022-09-30 [facility] [id number] Univers 11:00:00 11:55:20 AIDEE ity of [facility] 2022-09-30 2022-09-30 Office [facility] [id number] Univers 11:00:00 11:55:20 Visit [facility] [id number] it y of [place] [id number] Pablo as ABBIE?BLEA [phone] [address] OFFICE [facility] 2022-09-30 2022-09-30 Orders Doctor VIC [id number] Univers 00:00:00 00:00:00 Only Unassigned, ZITA [id number] [facility] [id number] Pablo as [phone] [address] 2022-09-04 2022-09-04 (TEL) STLC STLMLC [id number] Co mmon 00:00:00 00:00:00 [facility] 2022-06-18 2022-06-18 (TEL) STLMLC STL[facility]C [id number] Co mmon 00:00:00 00:00:00 [facility] 2022-06-11 2022-06-11 OFFICE STLMLC STLMLC [id number] Co mmon 00:00:00 00:00:00 [facility] PT - CHI LEVEL 4 [facility] 2022-04-22 2022-04-22 (TEL) STLMLC STLMLC [id number] Co mmon 00:00:00 00:00:00 [facility] 2022-04-10 2022-04-10 (TEL) STLMLC STLMLC [id number] Co mmon 00:00:00 00:00:00 [facility] 2022-02-21 2022-02-21 (TEL) STLMLC STLMLC [id number] Co mmon 00:00:00 00:00:00 [facility] 2022-02-21 2022-02-21 (MCR WELL) STLMLC STLMLC [id number] Common 00:00:00 00:00:00 [facility] 2022-02-21 2022-02-21 OFFICE STLMLC STLMLC [id number] Co mmon 00:00:00 00:00:00 [facility] EST[facility] PT - CHI LEVEL 4 [facility] 2022-01-28 2022-01-28 (TEL) STLMLC STLMLC [id number] Co mmon 00:00:00 00:00:00 [facility] 2022-01-03 2022-01-03 (TEL) STLMLC STLMLC [id number] Co mmon 00:00:00 00:00:00 [facility] 2021-11-19 2021-11-19 OFFICE STLMLC STLMLC [id number] Co mmon 00:00:00 00:00:00 VISIT [facility] it PT LEVEL 3 - [facility] 2021-11-11 2021-11-11 OFFICE STLMLC STLMLC [id number] Co mmon 00:00:00 00:00:00 VISIT NEW Spir it PT LEVEL 4 - [facility] Results This patient has no known results.
[2023-02-09] MEDS ORDERED: DIAZEPAM 5 MG TABLET ONE (14:36)
[2023-02-09 14:46] LABS: Specific Gravity < 1.005 (1.005-1.030); Urine Bilirubin NEGATIVE (Negative); Urine Blood Negative (Negative); Urine Clarity Clear (Clear); Urine Color Colorless (Yellow); Urine Glucose NEGATIVE (Negative); Urine Protein NEGATIVE (Negative); Urine Urobilinogen Normal (Normal)
[2023-02-09 14:52] LABS: Absolute Lymphocytes (CBC) 1.4 K/uL (0.7-4.9); Hematocrit 40.4 % (36.0-45.0); Lymphocytes % 23.5 % (15.3-44.8); MCV 89.6 fL (80-100); MPV 8.4 fL (7.6-11.3); RBC Red Blood Cell Count 4.51 M/uL (3.86-4.86)
[2023-02-09 14:56] LABS: Barbiturates NEGATIVE (NEGATIVE); Benzodiazepines NEGATIVE (NEGATIVE); Cocaine NEGATIVE (NEGATIVE); METHAMPHETAM NEGATIVE (NEGATIVE); Methadone NEGATIVE (NEGATIVE); Opiates NEGATIVE (NEGATIVE); Phencyclidine NEGATIVE (NEGATIVE); THC Cannibis NEGATIVE (NEGATIVE)
[2023-02-09 14:59] LABS: Protime INR 0.89
[2023-02-09 15:06] LABS: Albumin 4.4 g/dL (3.4-5.0); Bilirubin Direct 0.2 mg/dL (0-0.2); Bilirubin Indirect, Calculated 0.3 mg/dL (0.2-0.8); Bilirubin Total 0.5 mg/dL (0.2-1.0); Potassium 3.5 mEq/L (3.5-5.1); Protein, Total 8.1 g/dL (6.4-8.2)
--- NOTE | 2023-02-09 15:27 | EDPHYS ---
Physician Documentation [facility] Name: Christi Bland Age: 72 yrs Sex: Female : 1950 Arrival Date: 02/09/2023 Time: 13:54 Bed 16 Private MD: ED Physician Alton Rodgers HPI: 02/09 14:26 This 72 yrs old Female presents to ER via EMS with complaints of agitation, rn anxiety. 14:26 The patient presents to the emergency department with anxiety, depression. Onset: The rn symptoms/episode began/occurred at an unknown time. Severity of symptoms: At their worst the symptoms were moderate in the emergency department the symptoms are unchanged. The patient has experienced similar episodes in the past. The patient has been recently seen by a physician:. Pt reports doesn't feel right, recently had biopsy of uterus for vaginal bleeding, taking a lot of vicodin lately, taken off her clonazepam. Denies suicidal or homicidal ideations, patient states "just tired". Denies intentional overdose. No chest pain/sob/abd pain. Reports not eating/drinking lately. . Historical: - Allergies: 14:02 Vicodin; mb9 - Home Meds: 14:02 Hydrocodone-Acetaminophen Oral [Active]; mb9 14:20 Cymbalta 60 mg oral capsule,delayed release (e.c.) [Active]; BuSpar Oral [Active]; mb9 - PMHx: 14:02 Anxiety; Depressive disorder; Bipolar disorder; mb9 14:20 breast cancer; mb9 - PSHx: 14:20 mastectomy; mb9 - Immunization history:: Adult Immunizations up to date. - Social history:: Smoking status: Patient reports the use of cigarette tobacco products, smokes one-half pack cigarettes per day. - Family history:: not pertinent. - Hospitalizations: : No recent hospitalization is reported. ROS: 14:26 Constitutional: Negative for fever, chills, and weight loss, Eyes: Negative for injury, rn pain, redness, and discharge, Cardiovascular: Negative for chest pain, palpitations, and edema, Respiratory: Negative for shortness of breath, cough, wheezing, and pleuritic chest pain, Abdomen/GI: Negative for abdominal pain, nausea, vomiting, diarrhea, and constipation, Back: Negative for injury and pain, : Negative for injury, bleeding, discharge, and swelling, MS/Extremity: Negative for injury and deformity, Skin: Negative for injury, rash, and discoloration, Neuro: Negative for headache, numbness, tingling, and seizure. Exam: 14:26 Constitutional: This is a well developed, well nourished patient who is awake, alert, rn emotional, tearful, agitated Head/Face: Normocephalic, atraumatic. ENT: dry MM Neck: No Meningismus. Cardiovascular: Regular rate and rhythm. No pulse deficits. Respiratory: No increased work of breathing, no retractions or nasal flaring. Abdomen/GI: soft, non-tender Skin: Warm, dry MS/ Extremity: Pulses equal, no cyanosis. Neurovascular intact. Full, normal range of motion. Equal circumference. Neuro: Awake and alert, GCS 15, oriented to person, place, time, and situation. Cranial nerves II-XII grossly intact. Motor strength 5/5 in all extremities. Sensory grossly intact. Cerebellar exam normal. 14:32 ECG was reviewed by the Attending Physician. rn Vital Signs: 14:01 BP 170 / 73; Pulse 84; Resp 18; Temp 97.9(O); Pulse Ox 100% on R/A; Weight 49.9 kg; mb9 Height 4 ft. 11 in. ; 14:50 Pulse 78; Resp 16; Pulse Ox 99% on R/A; mb9 15:28 BP 165 / 78; Pulse 68; Resp 16; Pulse Ox 100% ; mb9 14:01 Body Mass Index 22.22 (49.90 kg, 149.86 cm) mb9 MDM: 13:58 Patient medically screened. [facility] 15:23 Differential diagnosis: depression, anxiety. Differential diagnosis: drug withdrawal. rn Data reviewed: vital signs, nurses notes. Data reviewed: lab test result(s), EKG, and as a result, I will discharge patient. Care significantly affected by the following chronic conditions: anxiety, depression, bipolar. Counseling: I had a detailed discussion with the patient and/or guardian regarding: the historical points, exam findings, and any diagnostic results supporting the discharge/admit diagnosis, lab results, the need for outpatient follow up, to return to the emergency department if symptoms worsen or persist or if there are any questions or concerns that arise at home. Special discussion: I discussed with the patient/guardian in detail that at this point there is no indication for admission to the hospital. It is understood, however, that if the symptoms persist or worsen the patient needs to return immediately for re-evaluation. Based on the history and exam findings, there is no indication for further emergent testing or inpatient evaluation. I discussed with the patient/guardian the need to see the primary care provider for further evaluation of the symptoms. I discussed with the patient/guardian the need to see the psychiatrist for further evaluation of the symptoms. ED course: NO acute findings in blood work, stable vitals, feels much better after valium. Still denies suicidal or homicidal ideations. Family here to take her home and happy that we ruled out other causes. Tylenol level normal. Drug screen neg. Will dc home with return precautions. . 02/09 13:59 Order name: Acetaminophen; Complete Time: 15:12 rn 02/09 13:59 Order name: Basic Metabolic Panel; Complete Time: 15:12 02/09 13:59 Order name: CBC with Diff; Complete Time: 15:05 02/09 13:59 Order name: ETOH Level; Complete Time: 14:59 02/09 13:59 Order name: Hepatic Function; Complete Time: 15:12 02/09 13:59 Order name: PT-INR; Complete Time: 15:05 02/09 13:59 Order name: Ptt, Activated; Complete Time: 15:05 02/09 13:59 Order name: Salicylate; Complete Time: 15:05 02/09 13:59 Order name: Urinalysis w/ reflexes; Complete Time: 14:47 02/09 13:59 Order name: Urine Drug Screen; Complete Time: 14:59 02/09 13:59 Order name: EKG; Complete Time: 14:10 02/09 13:59 Order name: EKG - Nurse/Tech; Complete Time: 14:28 02/09 13:59 Order name: IV Saline Lock; Complete Time: 14:14 02/09 13:59 Order name: Labs collected and sent; Complete Time: 14:14 02/09 13:59 Order name: Suicide Screening ([place]); Complete Time: 14:00 rn EC:32 Rate is 69 beats/min. Rhythm is regular. QRS [place] is Normal. RI interval is normal. QRS rn interval is normal. QT interval is normal. No Q waves. T waves are Normal. No ST changes noted. Clinical impression: Normal ECG. Interpreted by me. Reviewed by me. Administered Medications: 14:31 Drug: Diazepam PO 5 mg Route: PO; mb9 15:29 Follow up: Response: No adverse reaction mb9 Disposition Summary: 02/09/23 15:27 Discharge Ordered Location: Home rn Problem: chronic rn Symptoms: have improved rn Condition: Stable rn Diagnosis - Anxiety disorder, unspecified rn - Bipolar disorder, unspecified rn Followup: rn - With: Private Physician - When: As needed - Reason: Recheck today's complaints, Re-evaluation by your physician Discharge Instructions: - Discharge Summary Sheet rn - Generalized Anxiety Disorder, Adult rn - Managing Bipolar Disorder rn - Supporting Someone With Bipolar Disorder rn Forms: - Medication Reconciliation Form rn - Thank You Letter rn - Antibiotic travel rn or - Prescription Opioid Use rn Signatures: Dispatcher [employer] EDAlton Gleason MD MD rn Roszak, Josh, PA PA jr8 Breneman, Mary Beth RN RN mb9 Corrections: (The following items were deleted from the chart) 14:04 14:02 Allergies: No Known Allergies; mb9 mb9
--- NOTE | 2023-02-09 15:27 | ER ---
Nurse's Notes [facility] Name: Christi Bland Age: 72 yrs Sex: Female : 1950 Arrival Date: 02/09/2023 Time: 13:54 Bed 16 Private MD: Diagnosis: Anxiety disorder, unspecified;Bipolar disorder, unspecified Presentation: 02/09 14:01 Chief complaint: EMS states: "toned out for allergic reaction. However pt hasn't been mb9 taking anxiety, depression, and bipolar medications. Pt denies any suicidal ideations.". Coronavirus screen: Vaccine status: Patient reports receiving the 2nd dose of the covid vaccine. Ebola Screen: No symptoms or risks identified at this time. Initial Sepsis Screen: Does the patient meet any 2 criteria? No. Patient's initial sepsis screen is negative. Does the patient have a suspected source of infection? No. Patient's initial sepsis screen is negative. Risk Assessment: Do you want to hurt yourself or someone else? Patient reports no desire to harm self or others. Onset of symptoms was February 09, 2023. 14:01 Method Of Arrival: EMS: [facility] mb9 14:01 Acuity: LETICIA 3 mb9 Historical: - Allergies: 14:02 Vicodin; mb9 - Home Meds: 14:02 Hydrocodone-Acetaminophen Oral [Active]; mb9 14:20 Cymbalta 60 mg oral capsule,delayed release (e.c.) [Active]; BuSpar Oral [Active]; mb9 - PMHx: 14:02 Anxiety; Depressive disorder; Bipolar disorder; mb9 14:20 breast cancer; mb9 - PSHx: 14:20 mastectomy; mb9 - Immunization history:: Adult Immunizations up to date. - Social history:: Smoking status: Patient reports the use of cigarette tobacco products, smokes one-half pack cigarettes per day. - Family history:: not pertinent. - Hospitalizations: : No recent hospitalization is reported. Screenin:23 [facility] ED Fall Risk Assessment (Adult) History of falling in the last 3 months, mb9 including since admission No falls in past 3 months (0 pts) Confusion or Disorientation Yes (5 pts) Intoxicated or Sedated No (0 pts) Impaired Gait No (0 pts) Mobility Assist Device Used No (0 pt) Altered Elimination No (0 pt) Score/Fall Risk Level 3 or more points = High Risk Oriented to surroundings, Maintained a safe environment, Educated pt \\T\\ family on fall prevention, incl call for assistance when getting out of bed. Abuse screen: Denies threats or abuse. Nutritional screening: No deficits noted. Tuberculosis screening: No symptoms or risk factors identified. Assessment: 14:21 General: Appears unkempt, Behavior is anxious, restless. General: Speech is rapid. mb9 Pain: Denies pain. Neuro: Level of Consciousness is awake, alert, obeys commands, Oriented to person, place, time, situation, Appropriate for age. Cardiovascular: Rhythm is regular. Respiratory: Airway is patent Respiratory effort is even, unlabored, Respiratory pattern is regular, symmetrical. GI: Abdomen is flat, non-distended. : Urine is clear. Derm: Skin is pink, warm \\T\\ dry. Musculoskeletal: Range of motion: intact in all extremities. 15:36 Reassessment: Patient appears in no apparent distress at this time. Patient and/or mb9 family updated on plan of care and expected duration. Pain level reassessed. Patient is alert, oriented x 3, equal unlabored respirations, skin warm/dry/pink. Vital Signs: 14:01 BP 170 / 73; Pulse 84; Resp 18; Temp 97.9(O); Pulse Ox 100% on R/A; Weight 49.9 kg; mb9 Height 4 ft. 11 in. ; 14:50 Pulse 78; Resp 16; Pulse Ox 99% on R/A; mb9 15:28 BP 165 / 78; Pulse 68; Resp 16; Pulse Ox 100% ; mb9 14:01 Body Mass Index 22.22 (49.90 kg, 149.86 cm) mb9 ED Course: 13:58 Patient arrived in ED. ld1 13:58 Jerel Brunson PA is PHCP. jr8 13:58 Alton Rodgers MD is Attending Physician. jr8 14:00 Arm band placed on. mb9 14:02 Triage completed. mb9 14:04 Christi Alonso, TONG is Primary Nurse. mb9 14:04 Placed in gown. Bed in low position. Call light in reach. Side rails up X 1. Client mb9 placed on continuous cardiac and pulse oximetry monitoring. NIBP monitoring applied. night monitor on. 14:19 No provider procedures requiring assistance completed. Inserted saline lock: 22 gauge mb9 in right antecubital area, using aseptic technique. Blood collected. 14:31 Acetaminophen Sent. mb9 14:31 Basic Metabolic Panel Sent. mb9 14:31 CBC with Diff Sent. mb9 14:31 ETOH Level Sent. mb9 14:31 PT-INR Sent. mb9 14:31 Ptt, Activated Sent. mb9 14:31 Salicylate Sent. mb9 14:31 Urinalysis w/ reflexes Sent. mb9 14:31 Urine Drug Screen Sent. mb9 15:30 IV discontinued, intact, bleeding controlled, No redness/swelling at site. Pressure mb9 dressing applied. Administered Medications: 14:31 Drug: Diazepam PO 5 mg Route: PO; mb9 15:29 Follow up: Response: No adverse reaction mb9 Medication: 14:22 VIS not applicable for this client. mb9 Outcome: 15:27 Discharge ordered by . rn 15:30 Discharged to home ambulatory. mb9 15:30 Condition: stable 15:30 Discharge instructions given to patient, Instructed on discharge instructions, follow up and referral plans. Demonstrated understanding of instructions, follow-up care. 15:36 Patient left the ED. mb9 Signatures: Alton Rodgers MD MD rn Roszak, Josh, PA PA jr8 Raya Dey RN RN ld1 Christi Alonso RN RN mb9 Corrections: (The following items were deleted from the chart) 14:04 14:02 Allergies: No Known Allergies; mb9 mb9
[2023-02-09 15:59] VITALS: TEMP 97.9
[2023-02-09 16:06] VITALS: BP 165/78; O2SAT 100
--- NOTE | 2023-02-11 07:11 | EKG ---
Test Date: 2023-02-09 Test Time: 14:25:59 Health Promotion Manager: BEATRICE MEASUREMENT RESULTS: Intervals: Rate: 69 WA: 128 QRSD: 74 QT: 440 QTc: 471 Joice: P: 53 WA: 128 QRS: 14 T: 40 INTERPRETIVE STATEMENTS: Normal sinus rhythm Normal ECG No previous ECG available for comparison Electronically Signed On 02-11-23 07:07:08 CDT by Cheng Jolley
== END 2023-02-09 15:36 | disposition home or self-care (01) ==
LOC: ER 13:54
DX: F31.9 Bipolar disorder, unspecified (principal); F17.210 Nicotine dependence, cigarettes, uncomplicated; Z85.3 Personal history of malignant neoplasm of breast; Z88.5 Allergy status to narcotic agent
CPT/HCPCS: 93005; 85025; 80048; 36415; 85610; 80076; 85730; 81003; 80307; 99284; G0480 ×3

== ENCOUNTER 2023-04-16 17:08 | Inpatient (IN) | payer OTHER ==
--- OUTSIDE RECORDS SUMMARY | 2023-04-16 17:12 | XMS REPORT | Continuity of Care Document ---
:1950 Author Organization [facility] t Address [address] [facility] [place] [address] Care Team Providers Name Role Phone SANTANA PAYAN Primary Care Physician Unavailable Jillian Payan Attending Clinician Unavailable AIDEE VARGAS Attending Clinician Unavailable Ousmane Alamo Attending Clinician Unavailable Doctor Unassigned, [place] Attending Clinician Unavailable Payers Payer Name Policy Type Policy Number Effective Date Expiration Date S [facility] [id number] 2020 [facility] [place] 00:[place]:00 P[place] [facility]Select 1 [id number] 2021 Common TRS/ERS [facility] PPO 00:00:00 [facility] Problems Condition Condition Condition Status Onset Resolution Last Treating Co mments Source Name Details Category Date Date Treatment Clinician Date Bipolar 1 Bipolar 1 Problem Com mon disorder disorder [facility] Problem Common lesion of lesion of Spir it lung lung - [facility] [id number] Nicotine Problem Commo n dependence Spirit , - CHI cigarettes St , with [facility] unspecifie Medica l d Center nicotine-i nduced disorders Malignant Malignant Problem Com mon neoplasm neoplasm Spirit of female of - CHI breast unspecifie St d site of [facility] female Center breast Tobacco Smokes Problem Common user cigarettes [facility] Age-relate Age-relate Problem C ommon d d Spirit osteoporos osteoporos - [facility] is is without St current [facility] pathologic Medica l al Center fracture Nicotine Nicotine Problem Commo n dependence dependence Sp jamil [facility] [id number] Non-season Problem Com mon al Spirit allergic - CHI rhinitis St due to [facility] Solitary Solitary Problem Commo n pulmonary pulmonary Spir it nodule nodule - [facility] [id number] Primary Problem Common insomnia Spirit [facility] Adjustment Adjustment Problem C ommon disorder disorder Spirit with with - CHI anxiety anxiety [facility] [id number] Sleep Problem Common disorder, Spirit unspecifie - CHI d [facility] Bipolar Affective Problem Commo n affective bipolar Spirit disorder disorder - [facility] [id number] Bipolar 1 Problem Comm on disorder, Spirit depressed - [facility] [id number] PTSD Problem Common (post-trau Spirit matic - CHI stress St disorder) [facility] [id number] Mixed Problem Common stress and Spirit urge - CHI urinary St incontinen [facility] Allergies, Adverse Reactions, Alerts Allergy Allergy Status Severity Reaction(s) Onset Inactive Treating Comm ents Source Name Type Date Date Clinician HYDROCOD DRUG Active Hallucinates Un andie ONE-ACET 1-17 ity of AMINOPHE 00:00: [address] Hydrocod Drug Active Hallucinatio Un andie one-Acet Allergy ns 1-17 ity of aminophe 00:00: [address] NO KNOWN Drug Active [facility] Social [facility] Social Habit Start Date Stop Date Quantity Comments Source History of Current Smoker Common Spi rit - Tobacco Use [facility] Exposure to 2022-10-17 2022-10-27 Not sure [facility]-CoV-2 00:00:00 15:03:00 [facility] (event) [facility] Alcohol intake 2022-10-27 2022-10-27 Lifetime University of 00:00:00 00:00:00 non-drinker [facility] (finding) [facility] Tobacco use and 2022-10-27 2022-10-27 Smokeless tobacco Un iversity of exposure 00:00:00 00:00:00 non-user [facility] Sex Assigned At [birth year] Universit y of 00:00:00 00:00:00 [facility] Smoking Status Start Date Stop Date Source Tobacco smoking consumption Univ ersity [facility] unknown Branch Never smoked tobacco [facility] Current Smoker 2022-09-25 00:00:00 Common Spiri t - CHI [facility] Ce nter Medications Ordered Filled Start Stop Current Ordering Indication Dosage Frequency Signature Comments Components Source Medication Medication Date Date Medication? Clinician (SIG) Name Name clonazePAM 2021-09 Yes .5mg Take 0.5 Uni vers 0.5 mg 2-22 mg by ity of tablet 00:00: mouth as needed. Medical Branch letrozole 2021-09 Yes 2.5mg Take 2.5 Uni vers 2.5 mg 2-22 mg by ity of tablet 00:00: mouth daily Medical Branch clonazePAM 2021-09 Yes .5mg Take 0.5 Uni vers 0.5 mg 2-22 mg by ity of tablet 00:00: mouth as needed. Medical Branch letrozole 2021-09 Yes 2.5mg Take 2.5 Uni vers 2.5 mg 2-22 mg by ity of tablet 00:00: mouth daily Medical Branch clonazePAM 2021-09 Yes .5mg Take 0.5 Uni vers 0.5 mg 2-22 mg by ity of tablet 00:00: mouth as needed. Medical Branch letrozole 2021-09 Yes 2.5mg Take 2.5 Uni vers 2.5 mg 2-22 mg by ity of tablet 00:00: mouth daily Medical Branch clonazePAM 2021-09 Yes .5mg Take 0.5 Uni vers 0.5 mg 2-22 mg by ity of tablet 00:00: mouth as needed. Medical Branch letrozole 2021-09 Yes 2.5mg Take 2.5 Uni vers 2.5 mg 2-22 mg by ity of tablet 00:00: mouth daily Medical Branch clonazePAM 2021-09 Yes .5mg Take 0.5 Uni vers 0.5 mg 2-22 mg by ity of tablet 00:00: mouth as needed. Medical Branch letrozole 2021-09 Yes 2.5mg Take 2.5 Uni vers 2.5 mg 2-22 mg by ity of tablet 00:00: mouth daily Medical Branch clonazePAM 2021-09 Yes .5mg Take 0.5 Uni vers 0.5 mg 2-22 mg by ity of tablet 00:00: mouth as needed. Medical Branch letrozole 2021-09 Yes 2.5mg Take 2.5 Uni vers 2.5 mg 2-22 mg by ity of tablet 00:00: mouth [place] daily Medical Branch clonazePAM 2021-09 Yes .5mg Take 0.5 Uni vers 0.5 mg 2-22 mg by ity of tablet 00:00: mouth as [place] [address] needed. Medical Branch letrozole 2021-09 Yes 2.5mg Take 2.5 Uni vers 2.5 mg 2-22 mg by ity of tablet 00:00: mouth [place] daily Medical Branch clonazePAM 2021-09 Yes .5mg Take 0.5 Uni vers 0.5 mg 2-22 mg by ity of tablet 00:00: mouth as [place] [address] needed. Medical Branch letrozole 2021-09 Yes 2.5mg Take 2.5 Uni vers 2.5 mg 2-22 mg by ity of tablet 00:00: mouth [place] daily Medical Branch busPIRone 5 2021-09 Yes 5mg Take 5 mg U nivers mg tablet 2-08 by mouth ity of 00:00: in the [place] morning Medical and 5 mg Branch at noon and 5 mg in the evening. DULoxetine 2021-09 Yes 60mg Take 60 mg U nivers 60 mg 2-08 by mouth ity of capsule 00:00: in the [place] morning. Medical Branch busPIRone 5 2021-09 Yes 5mg Take 5 mg U nivers mg tablet 2-08 by mouth ity of 00:00: in the [place] morning Medical and 5 mg Branch at noon and 5 mg in the evening. DULoxetine 2021-09 Yes 60mg Take 60 mg U nivers 60 mg 2-08 by mouth ity of capsule 00:00: in the [place] morning. Medical Branch busPIRone 5 2021-09 Yes 5mg Take 5 mg U nivers mg tablet 2-08 by mouth ity of 00:00: in the [place] morning Medical and 5 mg Branch at noon and 5 mg in the evening. DULoxetine 2021-09 Yes 60mg Take 60 mg U nivers 60 mg 2-08 by mouth ity of capsule 00:00: in the [place] morning. Medical Branch busPIRone 5 2021-09 Yes 5mg Take 5 mg U nivers mg tablet 2-08 by mouth ity of 00:00: in the [place] morning Medical and 5 mg Branch at noon and 5 mg in the evening. DULoxetine 2021-09 Yes 60mg Take 60 mg U nivers 60 mg 2-08 by mouth ity of capsule 00:00: in the [place] morning. Medical Branch busPIRone 5 2021-09 Yes 5mg Take 5 mg U nivers mg tablet 2-08 by mouth ity of 00:00: in the [place] morning Medical and 5 mg Branch at noon and 5 mg in the evening. DULoxetine 2021-09 Yes 60mg Take 60 mg U nivers 60 mg 2-08 by mouth ity of capsule 00:00: in the [place] morning. Medical Branch busPIRone 5 2021-09 Yes 5mg Take 5 mg U nivers mg tablet 2-08 by mouth ity of 00:00: in the [place] morning Medical and 5 mg Branch at noon and 5 mg in the evening. DULoxetine 2021-09 Yes 60mg Take 60 mg U nivers 60 mg 2-08 by mouth ity of capsule 00:00: in the [place] morning. Medical Branch busPIRone 5 2021-09 Yes 5mg Take 5 mg U nivers mg tablet 2-08 by mouth ity of 00:00: in the [place] morning Medical and 5 mg Branch at noon and 5 mg in the evening. DULoxetine 2021-09 Yes 60mg Take 60 mg U nivers 60 mg 2-08 by mouth ity of capsule 00:00: in the [place] morning. Medical Branch busPIRone 5 2021-09 Yes 5mg Take 5 mg U nivers mg tablet 2-08 by mouth ity of 00:00: in the [place] morning Medical and 5 mg Branch at noon and 5 mg in the evening. DULoxetine 2021- Yes 60mg Take 60 mg U nivers 60 mg 2-08 by mouth ity of capsule 00:00: in the [place] morning. Medical Branch DULoxetine 2021- Yes 30mg Take 30 mg U nivers 30 mg 1-28 by mouth ity of capsule 00:00: in the [place] morning. Medical Branch DULoxetine 2021- Yes 30mg Take 30 mg U nivers 30 mg 1-28 by mouth ity of capsule 00:00: in the [place] morning. Medical Branch DULoxetine 2021-09 Yes 30mg Take 30 mg U nivers 30 mg 1-28 by mouth ity of capsule 00:00: in the [place] 00 morning. Medical Branch DULoxetine 2021-09 Yes 30mg Take 30 mg U nivers 30 mg 1-28 by mouth ity of capsule 00:00: in the [place] morning. Medical Branch DULoxetine 2021-09 Yes 30mg Take 30 mg U nivers 30 mg 1-28 by mouth ity of capsule 00:00: in the [place] morning. Medical Branch DULoxetine 2021-09 Yes 30mg Take 30 mg U nivers 30 mg 1-28 by mouth ity of capsule 00:00: in the [place] 00 morning. Medical Branch DULoxetine 2021-09 Yes 30mg Take 30 mg U nivers 30 mg 1-28 by mouth ity of capsule 00:00: in the [place] 00 morning. Medical Branch DULoxetine 2021-09 Yes 30mg Take 30 mg U nivers 30 mg 1-28 by mouth ity of capsule 00:00: in the [place] 00 morning. Medical Branch doxepin 10 2021-09 Yes 10mg Take 10 mg U nivers mg capsule 1-07 by mouth ity o f 00:00: at [place] [address] bedtime. Medical Branch doxepin 10 2021-09 Yes 10mg Take 10 mg U nivers mg capsule 1-07 by mouth ity o f 00:00: at [place] [address] bedtime. Medical Branch doxepin 10 2021-09 Yes 10mg Take 10 mg U nivers mg capsule 1-07 by mouth ity o f 00:00: at [place] [address] bedtime. Medical Branch doxepin 10 2021-09 Yes 10mg Take 10 mg U nivers mg capsule 1-07 by mouth ity o f 00:00: at [place] [address] bedtime. Medical Branch doxepin 10 2021-09 Yes 10mg Take 10 mg U nivers mg capsule 1-07 by mouth ity o f 00:00: at [place] 00 bedtime. Medical Branch doxepin 10 2021-09 Yes 10mg Take 10 mg U nivers mg capsule 1-07 by mouth ity o f 00:00: at [place] [address] bedtime. Medical Branch doxepin 10 2021-09 Yes 10mg Take 10 mg U nivers mg capsule 1-07 by mouth ity o f 00:00: at [place] 00 bedtime. Medical Branch doxepin 10 2021-09 Yes 10mg Take 10 mg U nivers mg capsule 07 by mouth ity o f 00:00: at [place] 00 bedtime. Medical Branch Doxylamine Doxylamine No 1{table [...] (Ketorolac) 2-28 S pirit 00:00: - CHI [facility] Kenalog Kenalog No 40mg Common (Triamcinol (Triamcinol 2-28 S pirit one) one) 00:00: - CHI [facility] Toradol Toradol No 30mg Common (Ketorolac) (Ketorolac) 2-28 S pirit 00:00: - CHI [facility] Kenalog Kenalog 2022-0 No 40mg Common (Triamcinol (Triamcinol 2-28 S pirit one) one) 00:00: - CHI 00 [facility] Toradol Toradol 2021-0 No 30mg Common (Ketorolac) (Ketorolac) 2-28 S pirit 00:00: - CHI 00 [facility] Kenalog Kenalog 2021-0 No 40mg Common (Triamcinol (Triamcinol 2-28 S pirit one) one) 00:00: - CHI 00 [facility] Toradol Toradol 2021-0 No 30mg Common (Ketorolac) (Ketorolac) 2-28 S pirit 00:00: - CHI 00 [facility] Nelly Kenalog 2021-0 No 40mg Common (Triamcinol (Triamcinol 2-28 S pirit one) one) 00:00: - CHI 00 [facility] Toradol Toradol 2021-0 No 30mg Common (Ketorolac) (Ketorolac) 2-28 S pirit 00:00: - CHI 00 [facility] Nelly Kenalog 2021-0 No 40mg Common (Triamcinol (Triamcinol 2-28 S pirit one) one) 00:00: - CHI 00 [facility] Toradol Toradol 2021-0 No 30mg Common (Ketorolac) (Ketorolac) 2-28 S pirit 00:00: - CHI 00 [facility] Nelly Kenalog 2021-0 No 40mg Common (Triamcinol (Triamcinol 2-28 S pirit one) one) 00:00: - CHI 00 [facility] Toradol Toradol 2021-0 No 30mg Common (Ketorolac) (Ketorolac) 2-28 S pirit 00:00: - CHI 00 [facility] Kenalog Kenalog 2021-0 No 40mg Common (Triamcinol (Triamcinol 2-28 S pirit one) one) 00:00: - CHI 00 [facility] Toradol Toradol 2021-0 No 30mg Common (Ketorolac) (Ketorolac) 2-28 S pirit 00:00: - CHI 00 [facility] Kenalog Kenalog 2021-0 No 40mg Common (Triamcinol (Triamcinol 2-28 S pirit one) one) 00:00: - CHI 00 [facility] Toradol Toradol 2021-0 No 30mg Common (Ketorolac) (Ketorolac) 2-28 S pirit 00:00: - CHI 00 [facility] Nelly Kenalog 2021-0 No 40mg Common (Triamcinol (Triamcinol 2-28 S pirit one) one) 00:00: - CHI 00 [facility] Toradol Toradol 2021-0 No 30mg Common (Ketorolac) (Ketorolac) 2-28 S pirit 00:00: - CHI 00 [facility] Nelly 2021-0 No 40mg Common (Triamcinol (Triamcinol 2-28 S pirit one) one) 00:00: - CHI 00 [facility] Toradol Toradol 2021-0 No 30mg Common (Ketorolac) (Ketorolac) 2-28 S pirit 00:00: - CHI 00 [facility] Nelly Kenenrike 2021-0 No 40mg Common (Triamcinol (Triamcinol 2-28 S pirit one) one) 00:00: - CHI 00 [facility] Toradol Toradol 2021-0 No 30mg Common (Ketorolac) (Ketorolac) 2-28 S pirit 00:00: - CHI 00 [facility] Nelly Villegas 2021-0 No 40mg Common (Triamcinol (Triamcinol 2-28 S pirit one) one) 00:00: - CHI 00 [facility] Toradol Toradol 2021-0 No 30mg Common (Ketorolac) (Ketorolac) 2-28 S pirit 00:00: - CHI 00 [facility] Nelly Kenalog 2021-0 No 40mg Common (Triamcinol (Triamcinol 2-28 S pirit one) one) 00:00: - CHI 00 [facility] Toradol Toradol 2021-0 No 30mg Common (Ketorolac) (Ketorolac) 2-28 S pirit 00:00: - CHI 00 [facility] Kenalog Kenalog 2021-0 No 40mg Common (Triamcinol (Triamcinol 2-28 S pirit one) one) 00:00: - CHI 00 [facility] Toradol Toradol 2021-0 No 30mg Common (Ketorolac) (Ketorolac) 2-28 S pirit 00:00: - CHI 00 [facility] Kenalog Kenalog 2021-0 No 40mg Common (Triamcinol (Triamcinol 2-28 S pirit one) one) 00:00: - CHI 00 [facility] Oxybutynin Oxybutynin 2021-0 2021- No 1{table QD Oxybutynin Chloride 5 Chloride [...] 00:00: 00:00 MG 00 :00 tiZANidine tiZANidine 2021-2021- No 1{table QD tiZANidine HCl 2 MG HCl 2 MG 11-11- t_as_ne HCl 2 MG 00:00: 00:00 eded} 00 :00 tiZANidine tiZANidine 2021-2- No 1{table QD tiZANidine HCl 2 MG HCl 2 MG 11-11- t_as_ne HCl 2 MG 00:00: 00:00 eded} 00 :00 Oxybutynin Oxybutynin 2021-0 2- No 1{table QD Oxybutynin Chloride 5 Chloride 5 11-1130 t} Chloride 5 MG MG 00:00: 00:00 MG 00 :00 tiZANidine tiZANidine 2021-0 2- No 1{table QD tiZANidine HCl 2 MG HCl 2 MG 11-1130 t_as_ne HCl 2 MG 00:00: 00:00 eded} [...] Spirit - OVER 65 OVER 65 13:44:00 [facility] FLUZONE HIGH DOSE FLUZONE HIGH DOSE 2021-09-13 Completed Common Spirit - OVER 65 OVER 65 13:44:00 [facility] FLUZONE HIGH DOSE FLUZONE HIGH DOSE 2021-09-13 Completed Common Spirit - OVER 65 OVER 65 13:44:00 [facility] FLUZONE HIGH DOSE FLUZONE HIGH DOSE 2021-09-13 Completed Common Spirit - OVER 65 OVER 65 13:44:00 [facility] FLUZONE HIGH DOSE FLUZONE HIGH DOSE 2021-09-13 Completed Common Spirit - OVER 65 OVER 65 13:44:00 [facility] FLUZONE HIGH DOSE FLUZONE HIGH DOSE 2021-09-13 Completed Common Spirit - OVER 65 OVER 65 13:44:00 [facility] FLUZONE HIGH DOSE FLUZONE HIGH DOSE 2021-09-13 Completed Common Spirit - OVER 65 OVER 65 13:44:00 [facility] FLUZONE HIGH DOSE FLUZONE HIGH DOSE 2021-09-13 Completed Common Spirit - OVER 65 OVER 65 13:44:00 [facility] FLUZONE HIGH DOSE FLUZONE HIGH DOSE 2021-09-13 Completed Common Spirit - OVER 65 OVER 65 13:44:00 [facility] FLUZONE HIGH DOSE FLUZONE HIGH DOSE 2021-09-13 Completed Common Spirit - OVER 65 OVER 65 13:44:00 [facility] FLUZONE HIGH DOSE FLUZONE HIGH DOSE 2021-09-13 Completed Common Spirit - OVER 65 OVER 65 13:44:00 [facility] FLUZONE HIGH DOSE FLUZONE HIGH DOSE 2021-09-13 Completed Common Spirit - OVER 65 OVER 65 13:44:00 [facility] FLUZONE HIGH DOSE FLUZONE HIGH DOSE 2021-09-13 Completed Common Spirit - OVER 65 OVER 65 13:44:00 [facility] FLUZONE HIGH DOSE FLUZONE HIGH DOSE 2021-09-13 Completed Common Spirit - OVER 65 OVER 65 13:44:00 [facility] FLUZONE HIGH DOSE FLUZONE HIGH DOSE 2021-09-13 Completed Common Spirit - OVER 65 OVER 65 13:44:00 [facility] SARS-COV-2 COVID-19 2020-12-22 Completed Unive rsity of PFIZER VACCINE 00:00:00 [facility] SARS-COV-2 COVID-19 2020-12-22 Completed Unive rsity of PFIZER VACCINE 00:00:00 [facility] SARS-COV-2 COVID-19 2020-12-22 Completed Unive rsity of PFIZER VACCINE 00:00:00 [facility] SARS-COV-2 COVID-19 2020-12-22 Completed Unive rsity of PFIZER VACCINE 00:00:00 [facility] SARS-COV-2 COVID-19 2020-12-22 Completed Unive rsity of PFIZER VACCINE 00:00:00 [place] [facility] SARS-COV-2 COVID-19 2020-12-22 Completed Unive rsity of PFIZER VACCINE 00:00:00 [facility] SARS-COV-2 COVID-19 2020-12-22 Completed Unive rsity of PFIZER VACCINE 00:00:00 [facility] SARS-COV-2 COVID-19 2020-12-22 Completed Unive rsity of PFIZER VACCINE 00:00:00 [facility] SARS-COV-2 COVID-19 2020-12-22 Completed Unive rsity of PFIZER VACCINE 00:00:00 [facility] SARS-COV-2 COVID-19 2020-12-01 Completed Unive rsity of PFIZER VACCINE 00:00:00 [facility] SARS-COV-2 COVID-19 2020-12-01 Completed Unive rsity of PFIZER VACCINE 00:00:00 [facility] SARS-COV-2 COVID-19 2020-12-01 Completed Unive rsity of PFIZER VACCINE 00:00:00 [facility] SARS-COV-2 COVID-19 2020-12-01 Completed Unive rsity of PFIZER VACCINE 00:00:00 [facility] SARS-COV-2 COVID-19 2020-12-01 Completed Unive rsity of PFIZER VACCINE 00:00:00 [facility] SARS-COV-2 COVID-19 2020-12-01 Completed Unive rsity of PFIZER VACCINE 00:00:00 [facility] SARS-COV-2 COVID-19 2020-12-01 Completed Unive rsity of PFIZER VACCINE 00:00:00 [facility] SARS-COV-2 COVID-19 2020-12-01 Completed Unive rsity of PFIZER VACCINE 00:00:00 [facility] SARS-COV-2 COVID-19 2020-12-01 Completed Unive rsity of PFIZER VACCINE 00:00:00 [facility] Vital Signs Vital Name Observation Time Observation Value Comments Source Systolic blood 2022-10-27 21:34:00 145 mm[Hg] Univer sity of pressure [facility] Diastolic blood 2022-10-27 21:34:00 75 mm[Hg] Unive rsity of pressure [facility] Heart rate 2022-10-27 21:34:00 84 /min [facility] Body height 2022-10-27 21:28:00 154.9 cm Universi ty of [facility] Body weight 2022-10-27 21:28:00 49.442 kg [facility] BMI 2022-10-27 21:28:00 20.60 kg/m2 [facility] Systolic blood 2022-09-30 17:15:00 129 mm[Hg] Univer sity of pressure [facility] Diastolic blood 2022-09-30 17:15:00 85 mm[Hg] Unive rsity of pressure [facility] Heart rate 2022-09-30 17:14:00 84 /min Universi ty of [facility] Body height 2022-09-30 17:14:00 154.9 cm [facility] Body weight 2022-09-30 17:14:00 49.442 kg [facility] BMI 2022-09-30 17:14:00 20.60 kg/m2 [facility] Oxygen saturation in 2022-09-30 17:14:00 100 /min [facility] Arterial blood by [facility] Pulse oximetry Branch height 2022-06-11 08:00:00 61.5 [in_i] [facility] weight 2022-06-11 08:00:00 109.6 [lb_av] [facility] temperature 2022-06-11 08:00:00 98.6 [degF] [facility] bmi 2022-06-11 08:00:00 20.37 kg/m2 [facility] oximetry 2022-06-11 08:00:00 97 % [facility] respiratory rate 2022-06-11 08:00:00 16 /min Comm on [facility] blood pressure 2022-06-11 08:00:00 137 mm[Hg] Common [facility] - systolic [facility] blood pressure 2022-06-11 08:00:00 66 mm[Hg] Common [facility] - diastolic [facility] height 2022-02-21 13:00:00 61 [in_i] Common S pirit [facility] weight 2022-02-21 13:00:00 110.4 [lb_av] Common [facility] temperature 2022-02-21 13:00:00 97.6 [degF] Common S [facility] bmi 2022-02-21 13:00:00 20.86 kg/m2 Common S [facility] oximetry 2022-02-21 13:00:00 98 % Common S [facility] respiratory rate 2022-02-21 13:00:00 16 /min Comm on [facility] blood pressure 2022-02-21 13:00:00 132 mm[Hg] Common [facility] - systolic [facility] blood pressure 2022-02-21 13:00:00 72 mm[Hg] Common [facility] - diastolic [facility] height 2022-02-21 13:00:00 61 [in_i] Common S [facility] weight 2022-02-21 13:00:00 110.4 [lb_av] Common [facility] temperature 2022-02-21 13:00:00 97.6 [degF] Common S [facility] bmi 2022-02-21 13:00:00 20.86 kg/m2 Common S [facility] oximetry 2022-02-21 13:00:00 98 % Common [facility] respiratory rate 2022-02-21 13:00:00 16 /min Comm on [facility] blood pressure 2022-02-21 13:00:00 132 mm[Hg] [facility] - systolic [facility] blood pressure 2022-02-21 13:00:00 72 mm[Hg] [facility] - diastolic [facility] height 2021-11-19 15:40:00 61 [in_i] Common [facility] weight 2021-11-19 15:40:00 114.8 [lb_av] [facility] temperature 2021-11-19 15:40:00 97.6 [degF] Common S [facility] bmi 2021-11-19 15:40:00 21.69 kg/m2 Common S [facility] oximetry 2021-11-19 15:40:00 98 % Common [facility] respiratory rate 2021-11-19 15:40:00 16 /min Comm on [facility] blood pressure 2021-11-19 15:40:00 135 mm[Hg] Common [facility] - systolic [facility] blood pressure 2021-11-19 15:40:00 75 mm[Hg] Common [facility] - diastolic [facility] height 2021-11-11 13:20:00 61 [in_i] [facility] weight 2021-11-11 13:20:00 118.2 [lb_av] [facility] temperature 2021-11-11 13:20:00 97.3 [degF] Common [facility] bmi 2021-11-11 13:20:00 22.33 kg/m2 Common [facility] oximetry 2021-11-11 13:20:00 95 % Common [facility] [facility] respiratory rate 2021-11-11 13:20:00 16 /min Comm on [facility] blood pressure 2021-11-11 13:20:00 128 mm[Hg] Common [facility] systolic [facility] blood pressure 2021-11-11 13:20:00 76 mm[Hg] Common [facility] diastolic [facility] Procedures Procedure Date / Time Performed Performing Clinician [facility] e ASSIGNMENT OF BENEFITS 2022-09-30 16:59:40 Doctor Unassigned, No [facility] Encounters Start End Encounter Admission Attending Care Care Encounter Source Date/Time Date/Time Type Type Clinicians Facility Department ID 2022-12-30 Outpatient Payan ANETTEJUDE [facility] [id number] Common 16:01:00 Jillian [id number] [facility] 2022-09-23 Outpatient [facility]anLON [facility] [id number] Common 07:59:01 Jillian [id number] [facility] 2022-02-19 Outpatient Payan, STJU[facility] [id number] Common 09:06:03 Jillian [facility] 2021-11-15 Outpatient Payan, [facility] [id number] Common 14:28:01 Jillian [facility] 2021-11-11 Outpatient Payan, [facility] [id number] Common 13:26:03 Jillian [facility] 2022-10-27 2022-10-27 [facility] [id number] Univers 15:30:00 17:26:37 AIDEE [facility] 2022-10-27 2022-10-27 Office [facility] [id number] Univers 15:30:00 17:26:37 Visit [facility] [id number] it y of [place] 4.2.7.2.686 Pablo as ABBIE?BLEA [phone] [address] OFFICE [facility] 2022-10-03 2022-10-03 (TEL) [facility] [id number] Co mmon 00:00:00 00:00:00 [facility] 2022-10-03 2022-10-03 Telephone [facility] [id number] Univers 00:00:00 00:00:00 [facility] [facility] [id number] it y of [place] 4.2.7.2.686 Pablo as ABBIE?BLEA [id number] [address] OFFICE [facility] 2022-10-03 2022-10-03 Telephone [facility] [id number] Univers 00:00:00 00:00:00 [employer] [facility] [id number] it y of [place] 4.2.7.2.686 Pablo as ABBIE?BLEA [phone] [address] MEDICAL OFFICE BUILDING 2022-10-02 2022-10-02 Telephone [facility] [id number] Univers 00:00:00 00:00:00 [employer] [id number] it y of [place] 4.2.7.2.686 Pablo as ABBIE?BLEA [phone] [address] MEDICAL OFFICE [facility] 2022-09-30 2022-09-30 Nurse Tech Lab, Ang - Db [facility] [id number] Univers 12:00:00 12:15:00 Visit Aidee Vargas [facility] [id number] ity of [place] [id number] Pablo as ABBIE?BLEA [phone] [address] OFFICE [facility] 2022-09-30 2022-09-30 Outpatient R [facility] [id number] Univers 11:00:00 11:55:20 AIDEE ity of [facility] 2022-09-30 2022-09-30 Office [facility] [id number] Univers 11:00:00 11:55:20 Visit [facility] [id number] it y of [place] 4.2.7.2.686 Pablo as ABBIE?BLEA [id number] [address] OFFICE [facility] 2022-09-30 2022-09-30 Orders Doctor VIC [id number] Univers 00:00:00 00:00:00 Only Unassigned, ZITA 350.1.13.10 ity of [place] [facility] [id number] Pablo as [phone] [address] 2022-09-04 2022-09-04 (TEL) STLMLC STL[facility] [id number] Co mmon 00:00:00 00:00:00 [facility] 2022-06-18 2022-06-18 (TEL) STLMLC STLMLC [id number] Co mmon 00:00:00 00:00:00 [facility] 2022-06-11 2022-06-11 OFFICE STLMLC STLMLC [id number] Co mmon 00:00:00 00:00:00 VISIT Spirit ESTAB PT - CHI LEVEL 4 [facility] 2022-04-22 2022-04-22 (TEL) STLMLC STLMLC [id number] Co mmon 00:00:00 00:00:00 [facility] 2022-04-10 2022-04-10 (TEL) STLMLC STLMLC [id number] Co mmon 00:00:00 00:00:00 [facility] 2022-02-21 2022-02-21 (TEL) STLMLC STLMLC [id number] Co mmon 00:00:00 00:00:00 [facility] 2022-02-21 2022-02-21 (MCR WELL) STLMLC STLMLC [id number] Common 00:00:00 00:00:00 Medicare Spiri t [facility] 2022-02-21 2022-02-21 OFFICE STLMLC STLMLC [id number] Co mmon 00:00:00 00:00:00 VISIT Spirit ESTAB PT - CHI LEVEL 4 [facility] 2022-01-28 2022-01-28 (TEL) STLMLC STLMLC [id number] Co mmon 00:00:00 00:00:00 [facility] 2022-01-03 2022-01-03 (TEL) STLMLC STLMLC [id number] Co mmon 00:00:00 00:00:00 [facility] 2021-11-19 2021-11-19 OFFICE STLMLC STLMLC [id number] Co mmon 00:00:00 00:00:00 VISIT EST Spir it PT LEVEL 3 - [facility] 2021-11-11 2021-11-11 OFFICE STLMLC STLMLC [id number] Co mmon 00:00:00 00:00:00 VISIT NEW Spir it PT LEVEL 4 - [facility] Results This patient has no known results.
[2023-04-16 17:56] LABS: Absolute Lymphocytes (CBC) 0.8 K/uL (0.7-4.9); Hematocrit 37.9 % (36.0-45.0); Lymphocytes % 9.9 % (15.3-44.8); MCV 89.6 fL (80-100); MPV 7.9 fL (7.6-11.3); Platelets 192 thou/uL (152-406); RBC Red Blood Cell Count 4.23 M/uL (3.86-4.86)
[2023-04-16] MEDS ORDERED: NA CHLORIDE 0.9% 1,000 ML ONE (18:08)
[2023-04-16] MEDS ORDERED: ONDANSETRON 4 MG/2 ML VIAL ONE (18:08)
[2023-04-16] MEDS ORDERED: MORPHINE 4 MG/ML SYR ONE (18:08)
[2023-04-16 18:52] LABS: Albumin 3.8 g/dL (3.4-5.0); Bilirubin Total 0.4 mg/dL (0.2-1.0); Potassium 3.8 mEq/L (3.5-5.1); Protein, Total 7.2 g/dL (6.4-8.2)
--- NOTE | 2023-04-16 19:44 | RAD REPORT ---
EXAM DESCRIPTION: CTAbdomen Pelvis W Contrast - 04/16/2023 7:16 pm CLINICAL HISTORY: Abdominal pain. abd pain s/p ERCP;Abd pain COMPARISON: Abdomen Pelvis W Contrast dated 02/25/2023; Cholangiogram dated 04/13/2023 TECHNIQUE: Biphasic CT imaging of the abdomen and pelvis was performed with 100 ml non-ionic IV cont rast. All CT scans are performed using dose optimization technique as appropriate and may include automated exposure control or mA/KV adjustment according to patient size. FINDINGS: The lung bases are clear. The liver, spleen, adrenal glands and kidneys are within normal limits. Mild edematous appearance to the pancreas. Mild pneumobilia is seen anteriorly. A stent is present in the common bile duct. No bowel obstruction, free air, free fluid or abscess. Moderate stool is present throughout the colon . Appendectomy. No evidence of significant lymphadenopathy. No suspicious bony findings. IMPRESSION: Common bile duct stent is in place with a mildly edematous appearance to the pancreas, s uggesting pancreatitis. Correlation with amylase and lipase suggested.
[2023-04-16] MEDS ORDERED: HYDROMORPHONE HCL 0.5 MG/0.5 ML INJ IV PRN (19:49)
[2023-04-16] MEDS ORDERED: HYDRALAZINE HCL 20 MG/ML VIAL IV PRN (19:49)
[2023-04-16] MEDS ORDERED: ONDANSETRON 4 MG/2 ML VIAL IV PRN (19:51)
[2023-04-16] MEDS ORDERED: D50W 25 GM/50 ML SYRINGE IV PRN (19:51)
[2023-04-16] MEDS ORDERED: GLUCAGON 1 MG/VIAL IM PRN (19:51)
[2023-04-16] MEDS ORDERED: WATER FOR INJ,STERILE 10 ML IM PRN (19:56)
[2023-04-16] MEDS ORDERED: ZIPRASIDONE MESYLA 20 MG/VIAL IM PRN (19:56)
--- NOTE | 2023-04-16 20:02 | P.HP ---
Certification for Inpatient Patient admitted to: Inpatient With expected LOS: >2 Midnights Practitioner: I am a practitioner with admitting privileges, knowledge of patient current condition, hospital course, and medical plan of care. Services: Services provided to patient in accordance with Admission requirements found in Title 42 Section 412.3 of the Code of Federal Regulations Patient History Date of Service: 04/16/23 Primary Care Provider: Sujey Reason for admission: pancreatitis post ercp History of Present Illness: Patient is an office patient of [facility]. She has a history of bipolar disorder. The patient came to the office 2 days ago. She was having abdominal pain. Dr. Melchor and Dr. Dale were working her up. The patient had an impacted stone. Not as she said recurrent cancer(she seemed to be hypomanic in the office). she was sent to Dr. Dale who did an ercp and stenting. This was 2 days ago. The patient has been having nausea and vomiting and came to the ER. She was found to have a elevated lipase of approx 2000. She had a normal ct scan. Had spoken to Dr. Morfin. He would like her kept and on fluids. The patient also needs a cholecystectomy. Dr. Hunt was on called and agreed to see the patient Review of Systems 10-point ROS is otherwise unremarkable Gastrointestinal: Nausea, Vomiting, Abdominal Pain Physical Examination - Physical Exam General: Alert, Moderate distress HEENT: Atraumatic, PERRLA, Mucous membr. moist/pink, EOMI, Sclerae nonicteric Neck: Supple, 2+ carotid pulse no bruit, No LAD, Without JVD or thyroid abnormality Respiratory: Clear to auscultation bilaterally, Normal air movement Cardiovascular: Regular rate/rhythm, Normal S1 S2 Gastrointestinal: Normal bowel sounds, No tenderness Musculoskeletal: No tenderness Integumentary: No rashes Neurological: Normal gait, Normal speech, Normal strength at 5/5 x4 extr, Normal tone, Normal affect Lymphatics: No axilla or inguinal lymphadenopathy - Studies Laboratory Data (last 24 hrs) 04/16/23 04/16/23 17:45 17:45 WBC 7.70 Hgb 12.6 Hct 37.9 Plt Count 192 Sodium 140 Potassium 3.8 BUN 11 Creatinine 0.76 Glucose 126 H Total Bilirubin 0.4 AST 45 H ALT 44 Alkaline Phosphatase 110 Lipase 2314 H Assessment and Plan - Problems (Diagnosis) (1) Pancreatitis Current Visit: Yes Status: Acute Plan: will admit put her on ringers lactate. Consult to Dr. Hunt will keep her on clear liquid diet. Qualifiers: Chronicity: acute Pancreatitis type: other Acute pancreatitis complication: unspecified Qualified Code(s): K85.80 - Other acute pancreatitis without necrosis or infection (2) Bipolar 1 disorder with moderate luis manuel Current Visit: Yes Status: Chronic Plan: Patient is hypomanic. She complaints of multiple symptoms. Gets very agitated and then becomes very sweat. She normal sees Dr. Xie. May need sedation and geodan (3) DUB (dysfunctional uterine bleeding) Current Visit: Yes Status: Chronic Plan: Monitor her cbc. She is being worked up as an outpatient by Dr. Tam Discharge Plan: Home Plan to discharge in: Greater than 2 days - Advance Directives Does patient have a Living Will: No Does patient have a Durable POA for Healthcare: No - Code Status/Comfort Care Code Status Assessed: Yes Physician Review: Patient Assessed, Agree with Above Assessment and Plan Critical Care: No Time Spent Managing Pts Care (In Minutes): 75
--- NOTE | 2023-04-16 20:04 | ER ---
Nurse's Notes [facility] Name: Christi Bland Age: 72 yrs Sex: Female : 1950 Arrival Date: 04/16/2023 Time: 17:08 Bed 14 Private MD: Diagnosis: Acute pancreatitis without necrosis or infection, unspecified Presentation: 04/16 17:16 Chief complaint: EMS states: Upper abdominal pain since 3pm today. Had a GI procedure nj1 done this morning. Nauseous. 17:16 Coronavirus screen: Vaccine status: Patient reports receiving the 2nd dose of the covid nj1 vaccine. Ebola Screen: Patient denies travel to an Ebola-affected area in the 21 days before illness onset. Initial Sepsis Screen: Does the patient meet any 2 criteria? No. Patient's initial sepsis screen is negative. Does the patient have a suspected source of infection? No. Patient's initial sepsis screen is negative. Risk Assessment: Do you want to hurt yourself or someone else? Patient reports no desire to harm self or others. Onset of symptoms was April 16, 2023 at 15:00. 17:16 Method Of Arrival: EMS: [facility] 17:16 Acuity: LETICIA 3 nj1 Historical: - Allergies: 17:35 Vicodin; nj1 - PMHx: 17:35 Anxiety; Bipolar disorder; breast cancer; depressive disorder; nj1 - PSHx: 17:35 mastectomy; nj1 - Immunization history:: Client reports receiving the 2nd dose of the Covid vaccine. - Social history:: Smoking status: Patient reports the use of cigarette tobacco products, denies chronic smoking, but will smoke occasionally. - Family history:: not pertinent. - Hospitalizations: : No recent hospitalization is reported. Screenin:37 [facility] ED Fall Risk Assessment (Adult) History of falling in the last 3 months, nj1 including since admission No falls in past 3 months (0 pts) Score/Fall Risk Level 0 - 2 = Low Risk Oriented to surroundings, Maintained a safe environment, Hourly rounding (assess needs \T\ fall precautionary measures) done. Abuse screen: Denies threats or abuse. Denies injuries from another. Nutritional screening: No deficits noted. Tuberculosis screening: No symptoms or risk factors identified. Assessment: 17:36 General: Appears in no apparent distress. uncomfortable, Behavior is calm, cooperative, nj1 appropriate for age. Pain: Complains of pain in abdomen Pain currently is 8 out of 10 on a pain scale. Neuro: Level of Consciousness is awake, alert, obeys commands, Oriented to person, place, time, situation. Cardiovascular: Patient's skin is warm and dry. Respiratory: Airway is patent Respiratory effort is even, unlabored. GI: Abdomen is flat, non-distended, Reports upper abdominal pain, nausea. 19:36 Reassessment: Patient appears in no apparent distress at this time. Patient and/or nj1 family updated on plan of care and expected duration. Pain level reassessed. Patient is alert, oriented x 3, equal unlabored respirations, skin warm/dry/pink. 20:39 Reassessment: Patient appears in no apparent distress at this time. Patient and/or nj1 family updated on plan of care and expected duration. Pain level reassessed. Patient is alert, oriented x 3, equal unlabored respirations, skin warm/dry/pink. Pain: Complains of pain in abdomen Pain currently is 8 out of 10 on a pain scale. Vital Signs: 17:16 BP 126 / 92; Pulse 85; Resp 18; Temp 97.6(O); Pulse Ox 97% on R/A; Weight 44.45 kg; nj1 Height 5 ft. 1 in. ; Pain 8/10; 18:30 BP 152 / 93; Pulse 77; Resp 17; Pulse Ox 100% ; nj1 19:34 BP 142 / 87; Pulse 93; Resp 18; Pulse Ox 99% ; nj1 20:39 BP 142 / 86; Pulse 93; Resp 16; Pulse Ox 100% ; Pain 8/10; nj1 17:16 Body Mass Index 18.52 (44.45 kg, 154.94 cm) nj1 17:16 Pain Scale: Adult nj1 20:39 Pain Scale: Adult la1 ED Course: 17:14 Patient arrived in ED. ds4 17:20 Maintain EMS IV. Dressing intact. Good blood return noted. Site clean \T\ dry. Gauge \T\ nj 1 site: 20G R AC. 17:25 Alton Rodgers MD is Attending Physician. rn 17:33 Feli Singh RN is Primary Nurse. nj1 17:35 Triage completed. nj1 17:36 Arm band placed on. nj1 17:38 Patient has correct armband on for positive identification. Bed in low position. Call nj1 light in reach. Side rails up X 1. Provided Education on: fall precautions, call light. 18:29 IV discontinued, intact, bleeding controlled, 20G R AC. nj1 18:30 Inserted saline lock: 22 gauge in left wrist, using aseptic technique. nj1 19:17 CT Abd/Pelvis - IV Contrast Only In Process Unspecified. EDMS 20:03 Steve Rm MD is Hospitalizing Provider. rn 21:01 No provider procedures requiring assistance completed. nj1 Administered Medications: 18:15 Drug: Ondansetron IVP 4 mg Route: IVP; Site: right antecubital; nj1 18:17 Drug: morphine IVP or IV 4 mg Route: IVP; Infused Over: 4 mins; Site: right antecubital;nj1 18:30 Drug: NS 0.9% IV 1000 ml Route: IV; Rate: 1 bolus; Site: left wrist; nj1 19:09 Drug: diphenhydrAMINE IVP 25 mg Route: IVP; Site: left wrist; nj1 Medication: 21:01 VIS not applicable for this client. nj1 Outcome: 20:03 Decision to Hospitalize by Provider. rn 21:01 Admitted to Med/surg accompanied by tech, via wheelchair, room 211, Report called to [facility] Nurse Kaci 21:01 Condition: stable 21:01 Instructed on the need for admit. 21:27 Patient left the ED. jw7 Signatures: Dispatcher [employer] EDMS Alton Rodgers MD MD rn Swanson, Donovan ds4 Jeannie Grossman RN RN jw7 Feli Singh RN RN nj1 Corrections: (The following items were deleted from the chart) 18:41 18:40 Maintain EMS IV. Dressing intact. Good blood return noted. Site clean \T\ dry. nj1 Gauge \T\ site: 20G R AC. nj1
--- NOTE | 2023-04-16 20:04 | EDPHYS ---
Physician Documentation [facility] Name: Christi Bland Age: 72 yrs Sex: Female : 1950 Arrival Date: 04/16/2023 Time: 17:08 Bed 14 Private MD: ED Physician Alton Rodgers HPI: 04/16 17:32 This 72 yrs old Female presents to ER via Unassigned with complaints of abd rn pain. 17:32 The patient presents with abdominal pain. Onset: The symptoms/episode began/occurred rn today. The symptoms do not radiate. Associated signs and symptoms: Pertinent positives: nausea and vomiting, Pertinent negatives: blood in stools, chest pain, fever. Modifying factors: The symptoms are alleviated by nothing, the symptoms are aggravated by nothing. Severity of pain: At its worst the pain was moderate in the emergency department the pain is unchanged. The patient has not experienced similar symptoms in the past. The patient has not recently seen a physician. Pt s/p ERCP or other procedure today, unclear exactly, with Dr. Morfin, reports pain for months without answer, diagnosed today with choledocholithiasis and told to f/u with Dr. Kaur. Pain was bad after procedure, stayed "for a while", told to come to ER if worsens so she did that. . Historical: - Allergies: 17:35 Vicodin; nj1 - PMHx: 17:35 Anxiety; Bipolar disorder; breast cancer; depressive disorder; nj1 - PSHx: 17:35 mastectomy; nj1 - Immunization history:: Client reports receiving the 2nd dose of the Covid vaccine. - Social history:: Smoking status: Patient reports the use of cigarette tobacco products, denies chronic smoking, but will smoke occasionally. - Family history:: not pertinent. - Hospitalizations: : No recent hospitalization is reported. ROS: 17:32 Constitutional: Negative for fever, chills, and weight loss, Neck: Negative for injury, rn pain, and swelling, Cardiovascular: Negative for chest pain, palpitations, and edema, Respiratory: Negative for shortness of breath, cough, wheezing, and pleuritic chest pain, Abdomen/GI: + abd pain and vomiting Back: Negative for injury and pain, MS/Extremity: Negative for injury and deformity, Skin: Negative for injury, rash, and discoloration, Neuro: Negative for headache, weakness, numbness, tingling, and seizure. Exam: 17:32 Constitutional: Thin female, sleeping Head/Face: Normocephalic, atraumatic. ENT: dry rn MM Cardiovascular: Regular rate and rhythm. No pulse deficits. Respiratory: No increased work of breathing, no retractions or nasal flaring. Abdomen/GI: soft, + mild epigastric tenderness without distension or ecchymosis Skin: Warm, dry MS/ Extremity: Pulses equal, no cyanosis. Neuro: Awake and alert, GCS 15 Vital Signs: 17:16 BP 126 / 92; Pulse 85; Resp 18; Temp 97.6(O); Pulse Ox 97% on R/A; Weight 44.45 kg; nj1 Height 5 ft. 1 in. ; Pain 8/10; 18:30 BP 152 / 93; Pulse 77; Resp 17; Pulse Ox 100% ; nj1 19:34 BP 142 / 87; Pulse 93; Resp 18; Pulse Ox 99% ; nj1 20:39 BP 142 / 86; Pulse 93; Resp 16; Pulse Ox 100% ; Pain 8/10; nj1 17:16 Body Mass Index 18.52 (44.45 kg, 154.94 cm) nj1 17:16 Pain Scale: Adult nj1 20:39 Pain Scale: Adult nj1 MDM: 17:25 Patient medically screened. rn 20:02 Differential diagnosis: cholecystitis, Cholelithiasis, gastritis, gastroesophageal rn reflux disease, non-specific abd pain, pancreatitis, Peptic Ulcer Disease. Data reviewed: vital signs, nurses notes, lab test result(s), radiologic studies, and as a result, I will admit patient. Counseling: I had a detailed discussion with the patient and/or guardian regarding: the historical points, exam findings, and any diagnostic results supporting the discharge/admit diagnosis, lab results, radiology results, the need for outpatient follow up, to return to the emergency department if symptoms worsen or persist or if there are any questions or concerns that arise at home. Response to treatment: the patient's symptoms have mildly improved after treatment, and as a result, I will admit patient. 04/16 17:31 Order name: CBC with Diff; Complete Time: 18:22 rn 04/16 17:31 Order name: CMP; Complete Time: 19:05 rn 04/16 17:31 Order name: Lipase; Complete Time: 19:05 rn 04/16 19:56 Order name: CBC with Automated Diff EDMS 04/16 19:56 Order name: CBC with Automated Diff EDMS 04/16 19:56 Order name: CBC with Automated Diff EDMS 04/16 19:56 Order name: CBC with Automated Diff EDMS 04/16 19:56 Order name: Comprehensive Metabolic Panel EDMS 04/16 19:56 Order name: Comprehensive Metabolic Panel EDMS 04/16 19:56 Order name: Comprehensive Metabolic Panel EDMS 04/16 19:56 Order name: Comprehensive Metabolic Panel EDMS 04/16 19:58 Order name: Lipase EDMS 04/16 17:31 Order name: CT Abd/Pelvis - IV Contrast Only; Complete Time: 19:48 rn 04/16 19:56 Order name: CONS Physician Consult EDMS 04/16 19:56 Order name: Clear Liquid EDMS 04/16 17:31 Order name: IV Saline Lock; Complete Time: 17:33 rn 04/16 17:31 Order name: Labs collected and sent; Complete Time: 17:46 rn Administered Medications: 18:15 Drug: Ondansetron IVP 4 mg Route: IVP; Site: right antecubital; nj1 18:17 Drug: morphine IVP or IV 4 mg Route: IVP; Infused Over: 4 mins; Site: right antecubital;nj1 18:30 Drug: NS 0.9% IV 1000 ml Route: IV; Rate: 1 bolus; Site: left wrist; nj1 19:09 Drug: diphenhydrAMINE IVP 25 mg Route: IVP; Site: left wrist; nj1 Disposition Summary: 04/16/23 20:03 Hospitalization Ordered Hospitalization Status: Inpatient Admission rn Provider: Steve Rm rn Location: Telemetry/MedSurg (Inpatient) rn Condition: Stable rn Problem: new rn Symptoms: have improved rn Bed/Room Type: Standard rn Room Assignment: 211(04/16/23 20:16) cg Diagnosis - Acute pancreatitis without necrosis or infection, unspecified rn Forms: - Medication Reconciliation Form rn - SBAR form rn Signatures: Dispatcher [employer] EDMS Alton Rodgers MD MD rn Garcia, Cindy, RN RN cg Jaco, Norma RN RN nj1 Corrections: (The following items were deleted from the chart) 19:56 19:56 Lipase ordered. EDMS EDMS 20:16 20:03 rn cg
[2023-04-16] MEDS ORDERED: D10W 125 ML IV PRN (20:21)
[2023-04-16] MEDS: INSULIN -REGULAR HUMAN 50 UNIT/0.5 ML ML SQ SCH (21:00)
[2023-04-16 21:38] VITALS: O2SAT 100
[2023-04-16] MEDS: Ringers Lactate 1,000 ML IV SCH (21:51)
[2023-04-16] MEDS: LORAZEPAM 0.5 MG TABLET PO PRN (21:51)
[2023-04-16 22:24] VITALS: BMI 18.4
[2023-04-17] MEDS: Ringers Lactate 1,000 ML IV SCH ×2 (06:00→08:58)
[2023-04-17 07:13] LABS: Absolute Lymphocytes (CBC) 1.1 K/uL (0.7-4.9); Hematocrit 36.9 % (36.0-45.0); Lymphocytes % 16.9 % (15.3-44.8); MCV 89.7 fL (80-100); MPV 8.3 fL (7.6-11.3); Platelets 187 thou/uL (152-406); RBC Red Blood Cell Count 4.11 M/uL (3.86-4.86)
[2023-04-17] MEDS: INSULIN -REGULAR HUMAN 50 UNIT/0.5 ML ML SQ SCH ×4 (07:30→20:54)
[2023-04-17 07:33] LABS: Albumin 3.5 g/dL (3.4-5.0); Bilirubin Total 2.3 mg/dL (0.2-1.0); Potassium 3.8 mEq/L (3.5-5.1); Protein, Total 6.8 g/dL (6.4-8.2)
--- NOTE | 2023-04-17 14:19 | P.PN ---
Subjective Date of Service: 04/17/23 Primary Care Provider: Sujey Chief Complaint: pancreatitis post ercp Subjective: New changes (lipase decreased, lft's increased) Review of Systems 10-point ROS is otherwise unremarkable Gastrointestinal: Nausea, Abdominal Pain (improved) Physical Examination - Vital Signs Temperature: 98.6 F Blood Pressure: 119/66 Pulse: 73 Respirations: 14 Pulse Ox (%): 95 - Physical Exam General: Alert, Mild distress HEENT: Atraumatic, PERRLA, EOMI Neck: Supple, JVD not distended Respiratory: Clear to auscultation bilaterally, Normal air movement Cardiovascular: Regular rate/rhythm, Normal S1 S2 Gastrointestinal: Normal bowel sounds, No tenderness Musculoskeletal: No tenderness Integumentary: No rashes Neurological: Normal speech, Normal tone, Normal affect Lymphatics: No axilla or inguinal lymphadenopathy - Studies Laboratory Data (last 24 hrs) 04/16/23 04/16/23 17:45 17:45 WBC 7.70 Hgb 12.6 Hct 37.9 Plt Count 192 Sodium 140 Potassium 3.8 BUN 11 Creatinine 0.76 Glucose 126 H Total Bilirubin 0.4 AST 45 H ALT 44 Alkaline Phosphatase 110 Lipase 2314 H Assessment And Plan - Current Problems (Diagnosis) (1) Pancreatitis Current Visit: Yes Status: Acute Plan: will admit put her on ringers lactate. Consult to Dr. Hunt will keep her on clear liquid diet. 8.4 Patient has improve lipase. However the patient has elevated LFT's discussed the patient with Dr. Hunt. We can continue fluids and clear liquids. If her lft's keep going up will need to transfer her. If not hopefully we can do a cholecystosmy on Thursday Qualifiers: Chronicity: acute Pancreatitis type: other Acute pancreatitis complication: unspecified Qualified Code(s): K85.80 - Other acute pancreatitis without necrosis or infection (2) Bipolar 1 disorder with moderate luis manuel Current Visit: Yes Status: Chronic Plan: Patient is hypomanic. She complaints of multiple symptoms. Gets very agitated and then becomes very sweat. She normal sees Dr. Xie. May need sedation and geodan (3) DUB (dysfunctional uterine bleeding) Current Visit: Yes Status: Chronic Plan: Monitor her cbc. She is being worked up as an outpatient by Dr. Tam Discharge Plan: Home Plan to discharge in: Greater than 2 days - Code Status/Comfort Care Code Status Assessed: No Physician Review: Patient Assessed, Agree with Above Assessment and Plan Critical Care: No Time Spent Managing PTS Care (In Minutes): 30
--- NOTE | 2023-04-17 16:38 | RAD REPORT ---
EXAM DESCRIPTION: NM - Hepatobiliary System Imagin - 04/17/2023 3:50 pm CLINICAL HISTORY: Abd pain TECHNIQUE: The patient was administered 5.9 millicuries technetium Choletec and images of the abdome n obtained for 3.5 hours FINDINGS: Liver demonstrates prompt radiotracer uptake. Activity is not seen within the common bile duct or gallbladder by 60 minutes. The 3 0.5 hour film demonstrates radiotracer within the common bile duct and small bowel. No radiotra cer within the gallbladder IMPRESSION: No activity within the gallbladder throughout the examination probably indicating obstru ction of the cystic duct Delayed radiotracer uptake within the common bile duct. A partial obstruction of the common bile duct stent is suspected
[2023-04-17] MEDS: LORAZEPAM 0.5 MG TABLET PO PRN (17:23)
[2023-04-17] MEDS ORDERED: ENSURE CLEAR 200 ML CAN PO SCH (21:00)
[2023-04-18] MEDS: Ringers Lactate 1,000 ML IV SCH (00:10)
[2023-04-18 00:57] VITALS: BP 150/86; TEMP 99.2
== END 2023-04-18 00:45 | disposition short-term general hospital (02) | DRG 440 ==
LOC: ER 17:08 → ERHOLD 19:51 → 2ND 21:22
PROVIDERS: ADMIT Internal Medicine; ATTEND Internal Medicine
DX: K85.80 Other acute pancreatitis without necrosis or infection (principal); F31.9 Bipolar disorder, unspecified; N93.8 Other specified abnormal uterine and vaginal bleeding; F17.210 Nicotine dependence, cigarettes, uncomplicated; Z85.3 Personal history of malignant neoplasm of breast; Z90.10 Acquired absence of unspecified breast and nipple; Z98.890 Other specified postprocedural states
CPT/HCPCS: 36415; 74177; 78226; 80053; 82947; 83690; 85025; 99285; A9537; J1170; J2405; J7030; J7120; Q9967

== ENCOUNTER → 2023-09-02 | Emergency (ER) | payer OTHER ==
[~2023-09-02] MED LIST: FAMOTIDINE 20 MG/2 ML VIAL IV ONE; ONDANSETRON 4 MG/2 ML VIAL ONE; POTASSIUM CL SA 10 MEQ TAB PO ONE
--- OUTSIDE RECORDS SUMMARY | 2023-09-02 13:49 | XMS REPORT | Continuity of Care Document ---
Author Name Unknown Address [address] [facility] [address] [place] [address] [facility] thconnect Address [address] [facility] [address] [place] [address] Care Team Providers Care Rigging Up Man Name Role Phone SANTANA PAYAN Primary Care Physician Unavailab Jillian Pike Attending Clinician Unavailable AIDEE VARGAS Attending Clinician Unavailable Lab, Ang - Db Attending Clinician Unavailable Doctor Unassigned, [place] Attending Clinician U navailable Payers Payer Name Policy Type Policy Number Effective Date Expirati on Date Source [facility] [employer] TRS/ERS [facility] PPO 1 [id number] 2021 00:00:00 [facility] PPO [id number] 2020 00:00:00 Problems Condition Name Condition Details Condition Category Status Onset Date Resolution Date Last Treatment Date Treating Clinician Comments Source Bipolar 1 disorder Bipolar 1 disorder Problem [facility] [place] lesion of lung [place] lesion of lung Problem [facility] [id number] Nicotine dependence , cigarettes , with unspecifie d nicotine-i nduced disorders Problem [facility] Malignant neoplasm of female breast Malignant neoplasm of unspecifie d site of right female breast Problem [facility] Tobacco user Smokes cigarettes Problem [facility] Age-relate d osteoporos is Age-relate d osteoporos is without current pathologic al fracture Problem [facility] Nicotine dependence Nicotine dependence Problem [facility] [id number] Non-season al allergic rhinitis due to pollen Problem [facility] Solitary pulmonary nodule Solitary pulmonary nodule Problem [facility] [id number] Primary insomnia Problem [facility] Adjustment disorder with anxiety Adjustment disorder with anxiety Problem [facility] [id number] Sleep disorder, unspecifie d Problem [facility] Bipolar affective disorder Affective bipolar disorder Problem [facility] [id number] Bipolar 1 disorder, depressed Problem [facility] [id number] PTSD (post-trau matic stress disorder) Problem [facility] Pain co-occurre nt and due to varicose veins of bilateral legs Varicose veins of bilateral lower extremitie s with pain Problem [facility] [id number] Vaginal bleeding Problem [facility] [id number] Mixed stress and urge urinary incontinen ce Problem [facility] Nicotine dependence , uncomplica emelina, unspecifie d nicotine product type Nicotine dependence , uncomplica emelina, unspecifie d nicotine product type Problem [facility] Allergies, Adverse Reactions, Alerts Allergy Name Allergy Type Status Severity Reaction(s) Onset Date Inactive Date Treating Clinician Comments Source HYDROCOD ONE-ACET AMINOPHE N DRUG Active Hallucinates 09-30 00:00: 00 [facility] Hydrocod one-Acet aminophe n Drug Allergy Active Hallucinatio ns 09-30 00:00: 00 [facility] NO KNOWN ALLERGIE S Drug Class Active [facility] Social History Social Habit Start Date Stop Date Quantity Comments Source History of Tobacco Use Current Smoker [facility] Exposure to SARS-CoV-2 (event) 2022-10-17 00:00:00 2022-10-27 15:03:[address] [facility] Alcohol intake 2022-10-27 00:00:00 2022-10-27 00:00:00 Lifetime non-drinker (finding) [facility] Tobacco use and exposure 2022-10-27 00:00:00 2022-10-27 00:00:[address] Smokeless tobacco non-user [facility] Sex Assigned At 1950 00:00:00 1950 00:00:[address] [facility] Smoking Status Start Date Stop Date Source Tobacco smoking consumption unknown [facility] Current Smoker 2023-02-04 00:00:00 [facility] Never smoked tobacco [facility] Medications Ordered Medication Name Filled Medication Name Start Date Stop Date Current Medication? Ordering Clinician Indication Dosage Frequency Signature (SIG) Comments Components Source clonazePAM 0.5 mg tablet 2021-09 00:00: 00 Yes .5mg Take 0.5 mg by mouth as needed. [facility] letrozole 2.5 mg tablet 2021-09 00:00: 00 Yes 2.5mg Take 2.5 mg by mouth daily [facility] clonazePAM 0.5 mg tablet 2021-09 00:00: 00 Yes .5mg Take 0.5 mg by mouth as needed. [facility] letrozole 2.5 mg tablet 2021-09 00:00: 00 Yes 2.5mg Take 2.5 mg by mouth daily [facility] clonazePAM 0.5 mg tablet 2021-09 00:00: 00 Yes .5mg Take 0.5 mg by mouth as needed. [facility] letrozole 2.5 mg tablet 2021-09 00:00: 00 Yes 2.5mg Take 2.5 mg by mouth daily [facility] clonazePAM 0.5 mg tablet 2021-09 00:00: 00 Yes .5mg Take 0.5 mg by mouth as needed. [facility] letrozole 2.5 mg tablet 2021-09 00:00: 00 Yes 2.5mg Take 2.5 mg by mouth daily [facility] clonazePAM 0.5 mg tablet 2021-09 00:00: 00 Yes .5mg Take 0.5 mg by mouth as needed. [facility] letrozole 2.5 mg tablet 2021-09 00:00: 00 Yes 2.5mg Take 2.5 mg by mouth daily [facility] clonazePAM 0.5 mg tablet 2021-09 00:00: 00 Yes .5mg Take 0.5 mg by mouth as needed. [facility] letrozole 2.5 mg tablet 2021-09 00:00: 00 Yes 2.5mg Take 2.5 mg by mouth daily [facility] clonazePAM 0.5 mg tablet 2021-09 00:00: 00 Yes .5mg Take 0.5 mg by mouth as needed. [facility] letrozole 2.5 mg tablet 2021-09 00:00: 00 Yes 2.5mg Take 2.5 mg by mouth daily [facility] clonazePAM 0.5 mg tablet 2021-09 00:00: 00 Yes .5mg Take 0.5 mg by mouth as needed. [facility] letrozole 2.5 mg tablet 2021-09 00:00: 00 Yes 2.5mg Take 2.5 mg by mouth daily [facility] busPIRone 5 mg tablet 2021-09 00:00: 00 Yes 5mg Take 5 mg by mouth in the morning and 5 mg at noon and 5 mg in the evening. [facility] DULoxetine 60 mg capsule 2021-09 00:00: 00 Yes 60mg Take 60 mg by mouth in the morning. [facility] busPIRone 5 mg tablet 2021-09 00:00: 00 Yes 5mg Take 5 mg by mouth in the morning and 5 mg at noon and 5 mg in the evening. [facility] DULoxetine 60 mg capsule 2021-09 00:00: 00 Yes 60mg Take 60 mg by mouth in the morning. [facility] busPIRone 5 mg tablet 2021-09 00:00: 00 Yes 5mg Take 5 mg by mouth in the morning and 5 mg at noon and 5 mg in the evening. [facility] DULoxetine 60 mg capsule 2021-09 00:00: 00 Yes 60mg Take 60 mg by mouth in the morning. [facility] tablet 2021-09 00:00: 00 Yes 5mg Take 5 mg by mouth in the morning and 5 mg at noon and 5 mg in the evening. [facility] DULoxetine 60 mg capsule 2021-09 00:00: 00 Yes 60mg Take 60 mg by mouth in the morning. [facility] busPIRone 5 mg tablet 2021-09 00:00: 00 Yes 5mg Take 5 mg by mouth in the morning and 5 mg at noon and 5 mg in the evening. [facility] DULoxetine 60 mg capsule 2021-09 00:00: 00 Yes 60mg Take 60 mg by mouth in the morning. [facility] busPIRone 5 mg tablet 2021-09 00:00: 00 Yes 5mg Take 5 mg by mouth in the morning and 5 mg at noon and 5 mg in the evening. [facility] DULoxetine 60 mg capsule 2021-09 00:00: 00 Yes 60mg Take 60 mg by mouth in the morning. [facility] busPIRone 5 mg tablet 2021-09 00:00: 00 Yes 5mg Take 5 mg by mouth in the morning and 5 mg at noon and 5 mg in the evening. [facility] DULoxetine 60 mg capsule 2021-09 00:00: 00 Yes 60mg Take 60 mg by mouth in the morning. [facility] busPIRone 5 mg tablet 2021-09 00:00: 00 Yes 5mg Take 5 mg by mouth in the morning and 5 mg at noon and 5 mg in the evening. [facility] DULoxetine 60 mg capsule 2021-09 00:00: 00 Yes 60mg Take 60 mg by mouth in the morning. [facility] DULoxetine 30 mg capsule 2021-09 00:00: 00 Yes 30mg Take 30 mg by mouth in the morning. [facility] DULoxetine 30 mg capsule 2021-09 00:00: 00 Yes 30mg Take 30 mg by mouth in the morning. [facility] DULoxetine 30 mg capsule 2021-09 00:00: 00 Yes 30mg Take 30 mg by mouth in the morning. [facility] DULoxetine 30 mg capsule 2021-09 00:00: 00 Yes 30mg Take 30 mg by mouth in the morning. [facility] DULoxetine 30 mg capsule 2021-09 00:00: 00 Yes 30mg Take 30 mg by mouth in the morning. [facility] DULoxetine 30 mg capsule 2021-09 00:00: 00 Yes 30mg Take 30 mg by mouth in the morning. [facility] DULoxetine 30 mg capsule 2021-09 00:00: 00 Yes 30mg Take 30 mg by mouth in the morning. [facility] DULoxetine 30 mg capsule 2021-09 00:00: 00 Yes 30mg Take 30 mg by mouth in the morning. [facility] doxepin 10 mg capsule 2021-09 00:00: 00 Yes 10mg Take 10 mg by mouth at bedtime. [facility] doxepin 10 mg capsule 2021-09 00:00: 00 Yes 10mg Take 10 mg by mouth at bedtime. [facility] doxepin 10 mg capsule 2021-09 00:00: 00 Yes 10mg Take 10 mg by mouth at bedtime. [facility] doxepin 10 mg capsule 2021-09 00:00: 00 Yes 10mg Take 10 mg by mouth at bedtime. [facility] doxepin 10 mg capsule 2021-09 00:00: 00 Yes 10mg Take 10 mg by mouth at bedtime. [facility] doxepin 10 mg capsule 2021-09 00:00: 00 Yes 10mg Take 10 mg by mouth at bedtime. [facility] doxepin 10 mg capsule 2021-09 00:00: 00 Yes 10mg Take 10 mg by mouth at bedtime. [facility] doxepin 10 mg capsule 2021-09 00:00: 00 Yes 10mg Take 10 mg by mouth at bedtime. [facility] Doxylamine Succinate (Sleep) 25 MG Doxylamine Succinate (Sleep) 25 MG 2021-0 3- 00:00: 00 No 1{table t_at_be dtime_a s_neede d} QD Doxylamine Succinate (Sleep) 25 MG Doxylamine Succinate (Sleep) 25 MG Doxylamine Succinate (Sleep) 25 MG 2-0 3 00:00: 00 No 1{table t_at_be dtime_a s_neede d} QD Doxylamine Succinate (Sleep) 25 MG Doxylamine Succinate (Sleep) 25 MG Doxylamine Succinate (Sleep) 25 MG 2021-0 11-19 00:00: 00 No 1{table t_at_be dtime_a s_neede d} QD Doxylamine Succinate (Sleep) 25 MG Doxylamine Succinate (Sleep) 25 MG Doxylamine Succinate (Sleep) 25 MG 2021-0 3 00:00: 00 No 1{table t_at_be dtime_a s_neede d} QD Doxylamine Succinate (Sleep) 25 MG Doxylamine Succinate (Sleep) 25 MG Doxylamine Succinate (Sleep) 25 MG 2021-0 11-19 00:00: 00 No 1{table t_at_be dtime_a s_neede d} QD Doxylamine Succinate (Sleep) 25 MG Doxylamine Succinate (Sleep) 25 MG Doxylamine Succinate (Sleep) 25 MG 2021-0 3 00:00: 00 No 1{table t_at_be dtime_a s_neede d} QD Doxylamine Succinate (Sleep) 25 MG Doxylamine Succinate (Sleep) 25 MG Doxylamine Succinate (Sleep) 25 MG 2-0 3- 00:00: 00 No 1{table t_at_be dtime_a s_neede d} QD Doxylamine Succinate (Sleep) 25 MG Doxylamine Succinate (Sleep) 25 MG Doxylamine Succinate (Sleep) 25 MG 2-0 3- 00:00: 00 No 1{table t_at_be dtime_a s_neede d} QD Doxylamine Succinate (Sleep) 25 MG Doxylamine Succinate (Sleep) 25 MG Doxylamine Succinate (Sleep) 25 MG 2022-0 3-08 00:00: 00 No 1{table t_at_be dtime_a s_neede d} QD Doxylamine Succinate (Sleep) 25 MG Doxylamine Succinate (Sleep) 25 MG Doxylamine Succinate (Sleep) 25 MG 2022-0 3-08 00:00: 00 No 1{table t_at_be dtime_a s_neede d} QD Doxylamine Succinate (Sleep) 25 MG Doxylamine Succinate (Sleep) 25 MG Doxylamine Succinate (Sleep) 25 MG 2022-0 3-08 00:00: 00 No 1{table t_at_be dtime_a s_neede d} QD Doxylamine Succinate (Sleep) 25 MG Doxylamine Succinate (Sleep) 25 MG Doxylamine Succinate (Sleep) 25 MG 2022-0 3-08 00:00: 00 No 1{table t_at_be dtime_a s_neede d} QD Doxylamine Succinate (Sleep) 25 MG Doxylamine Succinate (Sleep) 25 MG Doxylamine Succinate (Sleep) 25 MG 2022-0 3-08 00:00: 00 No 1{table t_at_be dtime_a s_neede d} QD Doxylamine Succinate (Sleep) 25 MG Doxylamine Succinate (Sleep) 25 MG Doxylamine Succinate (Sleep) 25 MG 2022-0 3-08 00:00: 00 No 1{table t_at_be dtime_a s_neede d} QD Doxylamine Succinate (Sleep) 25 MG Doxylamine Succinate (Sleep) 25 MG Doxylamine Succinate (Sleep) 25 MG 2022-0 3-08 00:00: 00 No 1{table t_at_be dtime_a s_neede d} QD Doxylamine Succinate (Sleep) 25 MG Doxylamine Succinate (Sleep) 25 MG Doxylamine Succinate (Sleep) 25 MG 2022-0 3-08 00:00: 00 No 1{table t_at_be dtime_a s_neede d} QD Doxylamine Succinate (Sleep) 25 MG Doxylamine Succinate (Sleep) 25 MG Doxylamine Succinate (Sleep) 25 MG 2022-0 3-08 00:00: 00 No 1{table t_at_be dtime_a s_neede d} QD Doxylamine Succinate (Sleep) 25 MG Doxylamine Succinate (Sleep) 25 MG Doxylamine Succinate (Sleep) 25 MG 308 00:00: 00 No 1{table t_at_be dtime_a s_neede d} QD Doxylamine Succinate (Sleep) 25 MG Toradol (Ketorolac) Toradol (Ketorolac) 11-11 00:00: 00 No 30mg [facility] Kenalog (Triamcinol one) Kenalog (Triamcinol one) 11-11 00:00: 00 No 40mg [facility] Toradol (Ketorolac) Toradol (Ketorolac) 11-11 00:00: 00 No 30mg [facility] Kenalog (Triamcinol one) Kenalog (Triamcinol one) 11-11 00:00: 00 No 40mg [facility] Toradol (Ketorolac) Toradol (Ketorolac) 11-11 00:00: 00 No 30mg [facility] Kenalog (Triamcinol one) Kenalog (Triamcinol one) 11-11 00:00: 00 No 40mg [facility] Toradol (Ketorolac) Toradol (Ketorolac) 11-11 00:00: 00 No 30mg [facility] Kenalog (Triamcinol one) Kenalog (Triamcinol one) 0 11-11 00:00: 00 No 40mg [facility] Toradol (Ketorolac) Toradol (Ketorolac) 11-11 00:00: 00 No 30mg [facility] Kenalog (Triamcinol one) Kenalog (Triamcinol one) 0 2- 00:00: 00 No 40mg [facility] Toradol (Ketorolac) Toradol (Ketorolac) 0 11-11 00:00: 00 No 30mg [facility] Kenalog (Triamcinol one) Kenalog (Triamcinol one) 0 11-11 00:00: 00 No 40mg [facility] Toradol (Ketorolac) Toradol (Ketorolac) 0 11-11 00:00: 00 No 30mg [facility] Kenalog (Triamcinol one) Kenalog (Triamcinol one) 0 11-11 00:00: 00 No 40mg [facility] Toradol (Ketorolac) Toradol (Ketorolac) 0 11-11 00:00: 00 No 30mg [facility] Kenalog (Triamcinol one) Kenalog (Triamcinol one) 0 11-11 00:00: 00 No 40mg [facility] Toradol (Ketorolac) Toradol (Ketorolac) 0 11-11 00:00: 00 No 30mg [facility] Kenalog (Triamcinol one) Kenalog (Triamcinol one) 0 11-11 00:00: 00 No 40mg [facility] Toradol (Ketorolac) Toradol (Ketorolac) 0 11-11 00:00: 00 No 30mg [facility] Kenalog (Triamcinol one) Kenalog (Triamcinol one) 0 11-11 00:00: 00 No 40mg [facility] Toradol (Ketorolac) Toradol (Ketorolac) 0 11-11 00:00: 00 No 30mg [facility] Kenalog (Triamcinol one) Kenalog (Triamcinol one) 0 11-11 00:00: 00 No 40mg [facility] Toradol (Ketorolac) Toradol (Ketorolac) 0 11-11 00:00: 00 No 30mg [facility] Kenalog (Triamcinol one) Kenalog (Triamcinol one) 0 11-11 00:00: 00 No 40mg [facility] Toradol (Ketorolac) Toradol (Ketorolac) 0 11-11 00:00: 00 No 30mg [facility] Kenalog (Triamcinol one) Kenalog (Triamcinol one) 0 11-11 00:00: 00 No 40mg [facility] Toradol (Ketorolac) Toradol (Ketorolac) 0 11-11 00:00: 00 No 30mg [facility] Kenalog (Triamcinol one) Kenalog (Triamcinol one) 0 11-11 00:00: 00 No 40mg [facility] Toradol (Ketorolac) Toradol (Ketorolac) 0 11-11 00:00: 00 No 30mg [facility] Kenalog (Triamcinol one) Kenalog (Triamcinol one) 0 11-11 00:00: 00 No 40mg [facility] Toradol (Ketorolac) Toradol (Ketorolac) 0 11-11 00:00: 00 No 30mg [facility] Kenalog (Triamcinol one) Kenalog (Triamcinol one) 0 11-11 00:00: 00 No 40mg [facility] Toradol (Ketorolac) Toradol (Ketorolac) 0 11-11 00:00: 00 No 30mg [facility] Kenalog (Triamcinol one) Kenalog (Triamcinol one) 0 11-11 00:00: 00 No 40mg [facility] Toradol (Ketorolac) Toradol (Ketorolac) 0 11-11 00:00: 00 No 30mg [facility] Kenalog (Triamcinol one) Kenalog (Triamcinol one) 2021-0 2-28 00:00: 00 No 40mg [facility] Toradol (Ketorolac) Toradol (Ketorolac) 0 11-11 00:00: 00 No 30mg [facility] Kenalog (Triamcinol one) Kenalog (Triamcinol one) 2021-0 - 00:00: 00 No 40mg [facility] Oxybutynin Chloride 5 MG Oxybutynin Chloride 5 MG 2021-0 -28 00:00: 00 02-17 00:00 :00 No 1{table t} QD Oxybutynin Chloride 5 MG Oxybutynin Chloride 5 MG Oxybutynin Chloride 5 MG 2021-0 28 00:00: 00 02-17 00:00 :00 No 1{table t} QD Oxybutynin Chloride 5 MG Oxybutynin Chloride 5 MG Oxybutynin Chloride 5 MG 2021-0 28 00:00: 00 02-17 00:00 :00 No 1{table t} QD Oxybutynin Chloride 5 MG tiZANidine HCl 2 MG tiZANidine HCl 2 MG 2021-0 11-11 00:00: 00 02-02 00:00 :00 No 1{table t_as_ne eded} QD tiZANidine HCl 2 MG tiZANidine HCl 2 MG tiZANidine HCl 2 MG 2021-0 28 00:00: 00 02-02 00:00 :00 No 1{table t_as_ne eded} QD tiZANidine HCl 2 MG Oxybutynin Chloride 5 MG Oxybutynin Chloride 5 MG 2021-0 28 00:00: 00 12-11 00:00 :00 No 1{table t} QD Oxybutynin Chloride 5 MG tiZANidine HCl 2 MG tiZANidine HCl 2 MG 2021-0 -28 00:00: 00 12-11 00:00 :00 No 1{table t_as_ne eded} QD tiZANidine HCl 2 MG Loratadine 10 MG Loratadine 10 MG 2021-0 2 00:00: 00 12-11 00:00 :00 No 1{table t} QD Loratadine 10 MG tiZANidine HCl 2 MG tiZANidine HCl 2 MG 2021-0 2- 00:00: 00 12-11 00:00 :00 No 1{table t_as_ne eded} QD tiZANidine HCl 2 MG Loratadine 10 MG Loratadine 10 MG 2021-0 2 00:00: 00 12-11 00:00 :00 No 1{table t} QD Loratadine 10 MG Femara 2.5 MG Femara 2.5 MG No 1{table t} QD Femara 2.5 MG LaMICtal 25 MG LaMICtal 25 MG No 1{table t} LaMICtal 25 MG Calcium + D Calcium + D No Ca lcium + D Fluticasone Propionate 50 MCG/ACT Fluticasone Propionate 50 MCG/ACT No 1{spray _in_eac h_nostr il} QD Fluticason e Propionate 50 MCG/ACT Cymbalta 30 MG Cymbalta 30 MG No 1{capsu le} QD Cymbalta 30 MG busPIRone HCl 5 MG busPIRone HCl 5 MG No 1{table t} TID busPIRone HCl 5 MG clonazePAM 0.5 MG clonazePAM 0.5 MG No clonazePAM 0.5 MG Zinc Zinc No Zinc Cymbalta 60 MG Cymbalta 60 MG No 1{capsu le} QD Cymbalta 60 MG Multiminera l Plus Multiminera l Plus No Multiminer al Plus Vitamin C Vitamin C No Vitamin C Vitamin C Vitamin C No Vitamin C Calcium + D Calcium + D No Ca lcium + D busPIRone HCl 5 MG busPIRone HCl 5 MG No 1{table t} TID busPIRone HCl 5 MG Femara 2.5 MG Femara 2.5 MG No 1{table t} QD Femara 2.5 MG LaMICtal 25 MG LaMICtal 25 MG No 1{table t} LaMICtal 25 MG Multiminera l Plus Multiminera l Plus No Multiminer al Plus clonazePAM 0.5 MG clonazePAM 0.5 MG No clonazePAM 0.5 MG Fluticasone Propionate 50 MCG/ACT Fluticasone Propionate 50 MCG/ACT No Fluticason e Propionate 50 MCG/ACT Zinc Zinc No Zinc Cymbalta 60 MG Cymbalta 60 MG No 1{capsu le} QD Cymbalta 60 MG Cymbalta 30 MG Cymbalta 30 MG No 1{capsu le} QD Cymbalta 30 MG clonazePAM 0.5 MG clonazePAM 0.5 MG No clonazePAM 0.5 MG Fluticasone Propionate 50 MCG/ACT Fluticasone Propionate 50 MCG/ACT No Fluticason e Propionate 50 MCG/ACT Femara 2.5 MG Femara 2.5 MG No 1{table t} QD Femara 2.5 MG busPIRone HCl 5 MG busPIRone HCl 5 MG No 1{table t} TID busPIRone HCl 5 MG Multiminera l Plus Multiminera l Plus No Multiminer al Plus Cymbalta 30 MG Cymbalta 30 MG No 1{capsu le} QD Cymbalta 30 MG Calcium + D Calcium + D No Ca lcium + D Zinc Zinc No Zinc LaMICtal 25 MG LaMICtal 25 MG No 1{table t} LaMICtal 25 MG Cymbalta 60 MG Cymbalta 60 MG No 1{capsu le} QD Cymbalta 60 MG Vitamin C Vitamin C No Vitamin C clonazePAM 0.5 MG clonazePAM 0.5 MG No clonazePAM 0.5 MG Fluticasone Propionate 50 MCG/ACT Fluticasone Propionate 50 MCG/ACT No Fluticason e Propionate 50 MCG/ACT Femara 2.5 MG Femara 2.5 MG No 1{table t} QD Femara 2.5 MG busPIRone HCl 5 MG busPIRone HCl 5 MG No 1{table t} TID busPIRone HCl 5 MG Multiminera l Plus Multiminera l Plus No Multiminer al Plus Cymbalta 30 MG Cymbalta 30 MG No 1{capsu le} QD Cymbalta 30 MG Calcium + D Calcium + D No Ca lcium + D Zinc Zinc No Zinc LaMICtal 25 MG LaMICtal 25 MG No 1{table t} LaMICtal 25 MG Cymbalta 60 MG Cymbalta 60 MG No 1{capsu le} QD Cymbalta 60 MG Vitamin C Vitamin C No Vitamin C busPIRone HCl 5 MG busPIRone HCl 5 MG No 1{table t} TID busPIRone HCl 5 MG Vitamin C Vitamin C No Vitamin C tiZANidine HCl 4 MG tiZANidine HCl 4 MG No 1{table t_as_ne eded} QD tiZANidine HCl 4 MG LaMICtal 25 MG LaMICtal 25 MG No 1{table t} LaMICtal 25 MG Zinc Zinc No Zinc Multiminera l Plus Multiminera l Plus No Multiminer al Plus Cymbalta 30 MG Cymbalta 30 MG No 1{capsu le} QD Cymbalta 30 MG clonazePAM 0.5 MG clonazePAM 0.5 MG No clonazePAM 0.5 MG Femara 2.5 MG Femara 2.5 MG No 1{table t} QD Femara 2.5 MG Calcium + D Calcium + D No Ca lcium + D Fluticasone Propionate 50 MCG/ACT Fluticasone Propionate 50 MCG/ACT No Fluticason e Propionate 50 MCG/ACT Cymbalta 60 MG Cymbalta 60 MG No 1{capsu le} QD Cymbalta 60 MG busPIRone HCl 5 MG busPIRone HCl 5 MG No 1{table t} TID busPIRone HCl 5 MG Vitamin C Vitamin C No Vitamin C tiZANidine HCl 4 MG tiZANidine HCl 4 MG No 1{table t_as_ne eded} QD tiZANidine HCl 4 MG LaMICtal 25 MG LaMICtal 25 MG No 1{table t} LaMICtal 25 MG Zinc Zinc No Zinc Multiminera l Plus Multiminera l Plus No Multiminer al Plus Cymbalta 30 MG Cymbalta 30 MG No 1{capsu le} QD Cymbalta 30 MG clonazePAM 0.5 MG clonazePAM 0.5 MG No clonazePAM 0.5 MG Femara 2.5 MG Femara 2.5 MG No 1{table t} QD Femara 2.5 MG Calcium + D Calcium + D No Ca lcium + D Fluticasone Propionate 50 MCG/ACT Fluticasone Propionate 50 MCG/ACT No Fluticason e Propionate 50 MCG/ACT Cymbalta 60 MG Cymbalta 60 MG No 1{capsu le} QD Cymbalta 60 MG busPIRone HCl 5 MG busPIRone HCl 5 MG No 1{table t} TID busPIRone HCl 5 MG Vitamin C Vitamin C No Vitamin C tiZANidine HCl 4 MG tiZANidine HCl 4 MG No 1{table t_as_ne eded} QD tiZANidine HCl 4 MG LaMICtal 25 MG LaMICtal 25 MG No 1{table t} LaMICtal 25 MG Zinc Zinc No Zinc Multiminera l Plus Multiminera l Plus No Multiminer al Plus Cymbalta 30 MG Cymbalta 30 MG No 1{capsu le} QD Cymbalta 30 MG clonazePAM 0.5 MG clonazePAM 0.5 MG No clonazePAM 0.5 MG Femara 2.5 MG Femara 2.5 MG No 1{table t} QD Femara 2.5 MG Calcium + D Calcium + D No Ca lcium + D Fluticasone Propionate 50 MCG/ACT Fluticasone Propionate 50 MCG/ACT No Fluticason e Propionate 50 MCG/ACT Cymbalta 60 MG Cymbalta 60 MG No 1{capsu le} QD Cymbalta 60 MG Femara 2.5 MG Femara 2.5 MG No 1{table t} QD Femara 2.5 MG Loratadine 10 MG Loratadine 10 MG No Loratadine 10 MG tiZANidine HCl 4 MG tiZANidine HCl 4 MG No 1{table t_as_ne eded} QD tiZANidine HCl 4 MG LaMICtal 25 MG LaMICtal 25 MG No 1{table t} LaMICtal 25 MG Multiminera l Plus Multiminera l Plus No Multiminer al Plus busPIRone HCl 5 MG busPIRone HCl 5 MG No 1{table t} TID busPIRone HCl 5 MG Vitamin C Vitamin C No Vitamin C Calcium + D Calcium + D No Ca lcium + D Cymbalta 60 MG Cymbalta 60 MG No 1{capsu le} QD Cymbalta 60 MG Zinc Zinc No Zinc Fluticasone Propionate 50 MCG/ACT Fluticasone Propionate 50 MCG/ACT No Fluticason e Propionate 50 MCG/ACT Cymbalta 30 MG Cymbalta 30 MG No 1{capsu le} QD Cymbalta 30 MG clonazePAM 0.5 MG clonazePAM 0.5 MG No clonazePAM 0.5 MG Femara 2.5 MG Femara 2.5 MG No 1{table t} QD Femara 2.5 MG Loratadine 10 MG Loratadine 10 MG No Loratadine 10 MG tiZANidine HCl 4 MG tiZANidine HCl 4 MG No 1{table t_as_ne eded} QD tiZANidine HCl 4 MG LaMICtal 25 MG LaMICtal 25 MG No 1{table t} LaMICtal 25 MG Multiminera l Plus Multiminera l Plus No Multiminer al Plus busPIRone HCl 5 MG busPIRone HCl 5 MG No 1{table t} TID busPIRone HCl 5 MG Vitamin C Vitamin C No Vitamin C Calcium + D Calcium + D No Ca lcium + D Cymbalta 60 MG Cymbalta 60 MG No 1{capsu le} QD Cymbalta 60 MG Zinc Zinc No Zinc Fluticasone Propionate 50 MCG/ACT Fluticasone Propionate 50 MCG/ACT No Fluticason e Propionate 50 MCG/ACT Cymbalta 30 MG Cymbalta 30 MG No 1{capsu le} QD Cymbalta 30 MG clonazePAM 0.5 MG clonazePAM 0.5 MG No clonazePAM 0.5 MG Cymbalta 60 MG Cymbalta 60 MG No 1{capsu le} QD Cymbalta 60 MG Fluticasone Propionate 50 MCG/ACT Fluticasone Propionate 50 MCG/ACT No Fluticason e Propionate 50 MCG/ACT Doxepin HCl 10 MG Doxepin HCl 10 MG No 1{capsu le_with _food} TID Doxepin HCl 10 MG LaMICtal 25 MG LaMICtal 25 MG No 1{table t} LaMICtal 25 MG Cymbalta 30 MG Cymbalta 30 MG No 1{capsu le} QD Cymbalta 30 MG Zinc Zinc No Zinc busPIRone HCl 5 MG busPIRone HCl 5 MG No 1{table t} TID busPIRone HCl 5 MG Femara 2.5 MG Femara 2.5 MG No 1{table t} QD Femara 2.5 MG Calcium + D Calcium + D No Ca lcium + D Multiminera l Plus Multiminera l Plus No Multiminer al Plus Loratadine 10 MG Loratadine 10 MG No Loratadine 10 MG Vitamin C Vitamin C No Vitamin C clonazePAM 0.5 MG clonazePAM 0.5 MG No clonazePAM 0.5 MG Zinc Zinc No Zinc busPIRone HCl 5 MG busPIRone HCl 5 MG No 1{table t} TID busPIRone HCl 5 MG Doxepin HCl 10 MG Doxepin HCl 10 MG No 1{capsu le_with _food} TID Doxepin HCl 10 MG Fluticasone Propionate 50 MCG/ACT Fluticasone Propionate 50 MCG/ACT No Fluticason e Propionate 50 MCG/ACT Multiminera l Plus Multiminera l Plus No Multiminer al Plus Cymbalta 30 MG Cymbalta 30 MG No 1{capsu le} QD Cymbalta 30 MG Vitamin C Vitamin C No Vitamin C Loratadine 10 MG Loratadine 10 MG No Loratadine 10 MG Cymbalta 60 MG Cymbalta 60 MG No 1{capsu le} QD Cymbalta 60 MG Femara 2.5 MG Femara 2.5 MG No 1{table t} QD Femara 2.5 MG LaMICtal 25 MG LaMICtal 25 MG No 1{table t} LaMICtal 25 MG Calcium + D Calcium + D No Ca lcium + D clonazePAM 0.5 MG clonazePAM 0.5 MG No clonazePAM 0.5 MG Zinc Zinc No Zinc busPIRone HCl 5 MG busPIRone HCl 5 MG No 1{table t} TID busPIRone HCl 5 MG Doxepin HCl 10 MG Doxepin HCl 10 MG No 1{capsu le_with _food} TID Doxepin HCl 10 MG Fluticasone Propionate 50 MCG/ACT Fluticasone Propionate 50 MCG/ACT No Fluticason e Propionate 50 MCG/ACT Multiminera l Plus Multiminera l Plus No Multiminer al Plus Cymbalta 30 MG Cymbalta 30 MG No 1{capsu le} QD Cymbalta 30 MG Vitamin C Vitamin C No Vitamin C Loratadine 10 MG Loratadine 10 MG No Loratadine 10 MG Cymbalta 60 MG Cymbalta 60 MG No 1{capsu le} QD Cymbalta 60 MG Femara 2.5 MG Femara 2.5 MG No 1{table t} QD Femara 2.5 MG LaMICtal 25 MG LaMICtal 25 MG No 1{table t} LaMICtal 25 MG Calcium + D Calcium + D No Ca lcium + D clonazePAM 0.5 MG clonazePAM 0.5 MG No clonazePAM 0.5 MG Multiminera l Plus Multiminera l Plus No Multiminer al Plus Cymbalta 30 MG Cymbalta 30 MG No 1{capsu le} QD Cymbalta 30 MG Fluticasone Propionate 50 MCG/ACT Fluticasone Propionate 50 MCG/ACT No Fluticason e Propionate 50 MCG/ACT Vitamin C Vitamin C No Vitamin C Zinc Zinc No Zinc Femara 2.5 MG Femara 2.5 MG No 1{table t} QD Femara 2.5 MG Calcium + D Calcium + D No Ca lcium + D busPIRone HCl 5 MG busPIRone HCl 5 MG No 1{table t} TID busPIRone HCl 5 MG clonazePAM 0.5 MG clonazePAM 0.5 MG No clonazePAM 0.5 MG Loratadine 10 MG Loratadine 10 MG No Loratadine 10 MG LaMICtal 25 MG LaMICtal 25 MG No 1{table t} LaMICtal 25 MG Cymbalta 60 MG Cymbalta 60 MG No 1{capsu le} QD Cymbalta 60 MG Doxepin HCl 10 MG Doxepin HCl 10 MG No 1{capsu le_with _food} TID Doxepin HCl 10 MG Multiminera l Plus Multiminera l Plus No Multiminer al Plus Fluticasone Propionate 50 MCG/ACT Fluticasone Propionate 50 MCG/ACT No Fluticason e Propionate 50 MCG/ACT Vitamin C Vitamin C No Vitamin C Zinc Zinc No Zinc Femara 2.5 MG Femara 2.5 MG No 1{table t} QD Femara 2.5 MG Loratadine 10 MG Loratadine 10 MG No Loratadine 10 MG Doxepin HCl 10 MG Doxepin HCl 10 MG No 1{capsu le_with _food} TID Doxepin HCl 10 MG Cymbalta 30 MG Cymbalta 30 MG No 1{capsu le} QD Cymbalta 30 MG Cymbalta 60 MG Cymbalta 60 MG No 1{capsu le} QD Cymbalta 60 MG LaMICtal 25 MG LaMICtal 25 MG No 1{table t} LaMICtal 25 MG busPIRone HCl 5 MG busPIRone HCl 5 MG No 1{table t} TID busPIRone HCl 5 MG clonazePAM 0.5 MG clonazePAM 0.5 MG No clonazePAM 0.5 MG Lunesta 2 MG Lunesta 2 MG No 1{table t_immed iately_ before_ bedtime } QD Lunesta 2 MG Calcium + D Calcium + D No Ca lcium + D Multiminera l Plus Multiminera l Plus No Multiminer al Plus Fluticasone Propionate 50 MCG/ACT Fluticasone Propionate 50 MCG/ACT No Fluticason e Propionate 50 MCG/ACT Vitamin C Vitamin C No Vitamin C Zinc Zinc No Zinc Femara 2.5 MG Femara 2.5 MG No 1{table t} QD Femara 2.5 MG Loratadine 10 MG Loratadine 10 MG No Loratadine 10 MG Doxepin HCl 10 MG Doxepin HCl 10 MG No 1{capsu le_with _food} TID Doxepin HCl 10 MG Cymbalta 30 MG Cymbalta 30 MG No 1{capsu le} QD Cymbalta 30 MG Cymbalta 60 MG Cymbalta 60 MG No 1{capsu le} QD Cymbalta 60 MG LaMICtal 25 MG LaMICtal 25 MG No 1{table t} LaMICtal 25 MG busPIRone HCl 5 MG busPIRone HCl 5 MG No 1{table t} TID busPIRone HCl 5 MG clonazePAM 0.5 MG clonazePAM 0.5 MG No clonazePAM 0.5 MG Lunesta 2 MG Lunesta 2 MG No 1{table t_immed iately_ before_ bedtime } QD Lunesta 2 MG Calcium + D Calcium + D No Ca lcium + D Multiminera l Plus Multiminera l Plus No Multiminer al Plus Fluticasone Propionate 50 MCG/ACT Fluticasone Propionate 50 MCG/ACT No Fluticason e Propionate 50 MCG/ACT Vitamin C Vitamin C No Vitamin C Zinc Zinc No Zinc Femara 2.5 MG Femara 2.5 MG No 1{table t} QD Femara 2.5 MG Loratadine 10 MG Loratadine 10 MG No Loratadine 10 MG Doxepin HCl 10 MG Doxepin HCl 10 MG No 1{capsu le_with _food} TID Doxepin HCl 10 MG Cymbalta 30 MG Cymbalta 30 MG No 1{capsu le} QD Cymbalta 30 MG Cymbalta 60 MG Cymbalta 60 MG No 1{capsu le} QD Cymbalta 60 MG LaMICtal 25 MG LaMICtal 25 MG No 1{table t} LaMICtal 25 MG busPIRone HCl 5 MG busPIRone HCl 5 MG No 1{table t} TID busPIRone HCl 5 MG clonazePAM 0.5 MG clonazePAM 0.5 MG No clonazePAM 0.5 MG Lunesta 2 MG Lunesta 2 MG No 1{table t_immed iately_ before_ bedtime } QD Lunesta 2 MG Calcium + D Calcium + D No Ca lcium + D Multiminera l Plus Multiminera l Plus No Multiminer al Plus Fluticasone Propionate 50 MCG/ACT Fluticasone Propionate 50 MCG/ACT No Fluticason e Propionate 50 MCG/ACT Vitamin C Vitamin C No Vitamin C Zinc Zinc No Zinc Femara 2.5 MG Femara 2.5 MG No 1{table t} QD Femara 2.5 MG Loratadine 10 MG Loratadine 10 MG No Loratadine 10 MG Doxepin HCl 10 MG Doxepin HCl 10 MG No 1{capsu le_with _food} TID Doxepin HCl 10 MG Cymbalta 30 MG Cymbalta 30 MG No 1{capsu le} QD Cymbalta 30 MG Cymbalta 60 MG Cymbalta 60 MG No 1{capsu le} QD Cymbalta 60 MG LaMICtal 25 MG LaMICtal 25 MG No 1{table t} LaMICtal 25 MG busPIRone HCl 5 MG busPIRone HCl 5 MG No 1{table t} TID busPIRone HCl 5 MG clonazePAM 0.5 MG clonazePAM 0.5 MG No clonazePAM 0.5 MG Lunesta 2 MG Lunesta 2 MG No 1{table t_immed iately_ before_ bedtime } QD Lunesta 2 MG Calcium + D Calcium + D No Ca lcium + D Cymbalta 60 MG Cymbalta 60 MG No 1{capsu le} QD Cymbalta 60 MG Fluticasone Propionate 50 MCG/ACT Fluticasone Propionate 50 MCG/ACT No Fluticason e Propionate 50 MCG/ACT Doxepin HCl 10 MG Doxepin HCl 10 MG No 1{capsu le_with _food} TID Doxepin HCl 10 MG LaMICtal 25 MG LaMICtal 25 MG No 1{table t} LaMICtal 25 MG Cymbalta 30 MG Cymbalta 30 MG No 1{capsu le} QD Cymbalta 30 MG Zinc Zinc No Zinc busPIRone HCl 5 MG busPIRone HCl 5 MG No 1{table t} TID busPIRone HCl 5 MG Femara 2.5 MG Femara 2.5 MG No 1{table t} QD Femara 2.5 MG Calcium + D Calcium + D No Ca lcium + D Multiminera l Plus Multiminera l Plus No Multiminer al Plus Loratadine 10 MG Loratadine 10 MG No Loratadine 10 MG Vitamin C Vitamin C No Vitamin C clonazePAM 0.5 MG clonazePAM 0.5 MG No clonazePAM 0.5 MG Zinc Zinc No Zinc busPIRone HCl 5 MG busPIRone HCl 5 MG No 1{table t} TID busPIRone HCl 5 MG Doxepin HCl 10 MG Doxepin HCl 10 MG No 1{capsu le_with _food} TID Doxepin HCl 10 MG Fluticasone Propionate 50 MCG/ACT Fluticasone Propionate 50 MCG/ACT No Fluticason e Propionate 50 MCG/ACT Multiminera l Plus Multiminera l Plus No Multiminer al Plus Cymbalta 30 MG Cymbalta 30 MG No 1{capsu le} QD Cymbalta 30 MG Vitamin C Vitamin C No Vitamin C Loratadine 10 MG Loratadine 10 MG No Loratadine 10 MG Cymbalta 60 MG Cymbalta 60 MG No 1{capsu le} QD Cymbalta 60 MG Femara 2.5 MG Femara 2.5 MG No 1{table t} QD Femara 2.5 MG LaMICtal 25 MG LaMICtal 25 MG No 1{table t} LaMICtal 25 MG Calcium + D Calcium + D No Ca lcium + D clonazePAM 0.5 MG clonazePAM 0.5 MG No clonazePAM 0.5 MG Immunizations Ordered Immunization Name Filled Immunization Name Date Status Comments Source FLUZONE HIGH DOSE OVER 65 FLUZONE HIGH DOSE OVER 65 2021-09-13 13:44:00 Completed [facility] FLUZONE HIGH DOSE OVER 65 FLUZONE HIGH DOSE OVER 65 2021-09-13 13:44:00 Completed [facility] FLUZONE HIGH DOSE OVER 65 FLUZONE HIGH DOSE OVER 65 2021-09-13 13:44:00 Completed [facility] FLUZONE HIGH DOSE OVER 65 FLUZONE HIGH DOSE OVER 65 2021-09-13 13:44:00 Completed [facility] FLUZONE HIGH DOSE OVER 65 FLUZONE HIGH DOSE OVER 65 2021-09-13 13:44:00 Completed [facility] FLUZONE HIGH DOSE OVER 65 FLUZONE HIGH DOSE OVER 65 2021-09-13 13:44:00 Completed [facility] FLUZONE HIGH DOSE OVER 65 FLUZONE HIGH DOSE OVER 65 2021-09-13 13:44:00 Completed [facility] FLUZONE HIGH DOSE OVER 65 FLUZONE HIGH DOSE OVER 65 2021-09-13 13:44:00 Completed [facility] FLUZONE HIGH DOSE OVER 65 FLUZONE HIGH DOSE OVER 65 2021-09-13 13:44:00 Completed [facility] FLUZONE HIGH DOSE OVER 65 FLUZONE HIGH DOSE OVER 65 2021-09-13 13:44:00 Completed [facility] FLUZONE HIGH DOSE OVER 65 FLUZONE HIGH DOSE OVER 65 2021-09-13 13:44:00 Completed [facility] FLUZONE HIGH DOSE OVER 65 FLUZONE HIGH DOSE OVER 65 2021-09-13 13:44:00 Completed [facility] FLUZONE HIGH DOSE OVER 65 FLUZONE HIGH DOSE OVER 65 2021-09-13 13:44:00 Completed [facility] FLUZONE HIGH DOSE OVER 65 FLUZONE HIGH DOSE OVER 65 2021-09-13 13:44:00 Completed [facility] FLUZONE HIGH DOSE OVER 65 FLUZONE HIGH DOSE OVER 65 2021-09-13 13:44:00 Completed [facility] SARS-COV-2 COVID-19 PFIZER VACCINE 2020-12-22 00:00:[address] [facility] SARS-COV-2 COVID-19 PFIZER VACCINE 2020-12-22 00:00:[address] [facility] SARS-COV-2 COVID-19 PFIZER VACCINE 2020-12-22 00:00:[address] [facility] SARS-COV-2 COVID-19 PFIZER VACCINE 2020-12-22 00:00:[address] [facility] SARS-COV-2 COVID-19 PFIZER VACCINE 2020-12-22 00:00:[address] [facility] SARS-COV-2 COVID-19 PFIZER VACCINE 2020-12-22 00:00:[address] [facility] SARS-COV-2 COVID-19 PFIZER VACCINE 2020-12-22 00:00:[address] [facility] SARS-COV-2 COVID-19 PFIZER VACCINE 2020-12-22 00:00:[address] [facility] SARS-COV-2 COVID-19 PFIZER VACCINE 2020-12-22 00:00:[address] [facility] SARS-COV-2 COVID-19 PFIZER VACCINE 2020-12-01 00:00:[address] [facility] SARS-COV-2 COVID-19 PFIZER VACCINE 2020-12-01 00:00:[address] [facility] SARS-COV-2 COVID-19 PFIZER VACCINE 2020-12-01 00:00:[address] [facility] SARS-COV-2 COVID-19 PFIZER VACCINE 2020-12-01 00:00:[address] [facility] SARS-COV-2 COVID-19 PFIZER VACCINE 2020-12-01 00:00:[address] [facility] SARS-COV-2 COVID-19 PFIZER VACCINE 2020-12-01 00:00:[address] [facility] SARS-COV-2 COVID-19 PFIZER VACCINE 2020-12-01 00:00:[address] [facility] SARS-COV-2 COVID-19 PFIZER VACCINE 2020-12-01 00:00:[address] [facility] SARS-COV-2 COVID-19 PFIZER VACCINE 2020-12-01 00:00:[address] [facility] FLUZONE HIGH DOSE OVER 65 FLUZONE HIGH DOSE OVER 65 Unknown Completed [facility] FLUZONE HIGH DOSE OVER 65 FLUZONE HIGH DOSE OVER 65 Unknown Completed [facility] FLUZONE HIGH DOSE OVER 65 FLUZONE HIGH DOSE OVER 65 Unknown Completed [facility] FLUZONE HIGH DOSE OVER 65 FLUZONE HIGH DOSE OVER 65 Unknown Completed [facility] Vital Signs Vital Name Observation Time Observation Value Comments S ource height 2022-12-24 11:40:00 61.5 [in_i] Comm on [facility] weight 2022-12-24 11:40:00 100.5 [lb_av] Co mmon [facility] temperature 2022-12-24 11:40:00 98.1 [degF] Com mon [facility] bmi 2022-12-24 11:40:00 18.68 kg/m2 Comm on [facility] oximetry 2022-12-24 11:40:00 98 % Commo n [facility] respiratory rate 2022-12-24 11:40:00 17 /min [facility] blood pressure systolic 2022-12-24 11:40:00 136 mm[Hg] [facility] blood pressure diastolic 2022-12-24 11:40:00 82 mm[Hg] [facility] Systolic blood pressure 2022-10-27 21:34:00 145 mm[Hg] [place] [facility] Diastolic blood pressure 2022-10-27 21:34:00 75 mm[Hg] [place] [facility] Heart rate 2022-10-27 21:34:00 84 /min [facility] Body height 2022-10-27 21:28:00 154.9 cm [facility] Body weight 2022-10-27 21:28:00 49.442 kg [facility] BMI 2022-10-27 21:28:00 20.60 kg/m2 [facility] Systolic blood pressure 2022-09-30 17:15:00 129 mm[Hg] [facility] Diastolic blood pressure 2022-09-30 17:15:00 85 mm[Hg] [facility] Heart rate 2022-09-30 17:14:00 84 /min [facility] Body height 2022-09-30 17:14:00 154.9 cm [facility] Body weight 2022-09-30 17:14:00 49.442 kg [facility] BMI 2022-09-30 17:14:00 20.60 kg/m2 [facility] Oxygen saturation in Arterial blood by Pulse oximetry 2022-09-30 17:14:00 100 /min [facility] height 2022-09-25 10:20:00 61.5 [in_i] Comm on [facility] weight 2022-09-25 10:20:00 109.6 [lb_av] Co mmon [facility] temperature 2022-09-25 10:20:00 97.8 [degF] Com mon [facility] bmi 2022-09-25 10:20:00 20.37 kg/m2 Comm on [facility] oximetry 2022-09-25 10:20:00 96 % Commo n [facility] respiratory rate 2022-09-25 10:20:00 16 /min [facility] blood pressure systolic 2022-09-25 10:20:00 136 mm[Hg] [facility] blood pressure diastolic 2022-09-25 10:20:00 72 mm[Hg] [facility] height 2022-06-11 08:00:00 61.5 [in_i] Comm on [facility] weight 2022-06-11 08:00:00 109.6 [lb_av] Co mmon [facility] temperature 2022-06-11 08:00:00 98.6 [degF] Com [facility] bmi 2022-06-11 08:00:00 20.37 kg/m2 Comm on [facility] oximetry 2022-06-11 08:00:00 97 % Commo n [facility] respiratory rate 2022-06-11 08:00:00 16 /min [facility] blood pressure systolic 2022-06-11 08:00:00 137 mm[Hg[facility] blood pressure diastolic 2022-06-11 08:00:00 66 mm[Hg] [facility] height 2022-02-21 13:00:00 61 [in_i] Commo n [facility] weight 2022-02-21 13:00:00 110.4 [lb_av] Co [facility] temperature 2022-02-21 13:00:00 97.6 [degF] Com [facility] bmi 2022-02-21 13:00:00 20.86 kg/m2 Comm on [facility] oximetry 2022-02-21 13:00:00 98 % Commo n [facility] respiratory rate 2022-02-21 13:00:00 16 /min [facility] blood pressure systolic 2022-02-21 13:00:00 132 mm[Hg] [facility] blood pressure diastolic 2022-02-21 13:00:00 72 mm[facility]Hg[facility] height 2022-02-21 13:00:00 61 [in_i] Commo n [facility] weight 2022-02-21 13:00:00 110.4 [lb_av] Co [facility] temperature 2022-02-21 13:00:00 97.6 [degF] Com [facility] bmi 2022-02-21 13:00:00 20.86 kg/m2 Comm on [facility] oximetry 2022-02-21 13:00:00 98 % Commo n [facility] respiratory rate 2022-02-21 13:00:00 16 /min [facility] blood pressure systolic 2022-02-21 13:00:00 132 mm[Hg] [facility] blood pressure diastolic 2022-02-21 13:00:00 72 mm[Hg] [facility] height 2021-11-19 15:40:00 61 [in_i] Commo n [facility] weight 2021-11-19 15:40:00 114.8 [lb_av] Co on [facility] temperature 2021-11-19 15:40:00 97.6 [degF] Com [facility] bmi 2021-11-19 15:40:00 21.69 kg/m2 Comm on [facility] oximetry 2021-11-19 15:40:00 98 % Commo n [facility] respiratory rate 2021-11-19 15:40:00 16 /min [facility] blood pressure systolic 2021-11-19 15:40:00 135 mm[Hg] [facility] blood pressure diastolic 2021-11-19 15:40:00 75 mm[Hg] [facility] height 2021-11-11 13:20:00 61 [in_i] Commo n [facility] weight 2021-11-11 13:20:00 118.2 [lb_av] Co mmon [facility] temperature 2021-11-11 13:20:00 97.3 [degF] Com mon [facility] bmi 2021-11-11 13:20:00 22.33 kg/m2 Comm on [facility] oximetry 2021-11-11 13:20:00 95 % Commo n [facility] respiratory rate 2021-11-11 13:20:00 16 /min [facility] blood pressure systolic 2021-11-11 13:20:00 128 mm[Hg] [facility] blood pressure diastolic 2021-11-11 13:20:00 76 mm[Hg] [facility] Procedures Procedure Date / Time Performed Performing Clinicia n Source ASSIGNMENT OF BENEFITS 2022-09-30 16:59:40 Docto r Unassigned, [place] [facility] Encounters Start Date/Time End Date/Time Encounter Type Admission Type Attending [facility] Care Department Encounter ID Source 2022-12-30 16:01:00 Outpatient Jillian Payan [facility] [id number] [facility] 2022-09-23 07:59:01 Outpatient Jillian Payan [facility] [id number] [facility] 2022-02-19 09:06:03 Outpatient Jillian Payan [facility] [id number] [facility] 2021-11-15 14:28:01 Outpatient Jillian Payan [facility] [id number] [facility] 2021-11-11 13:26:03 Outpatient Jillian Payan [facility] [id number] [facility] 2023-01-20 00:00:00 2023-01-20 00:00:00 (TEL) STLMLC [facility] [id number] [facility] 2022-12-24 00:00:00 2022-12-24 00:00:00 OFFICE VISIT ESTAB PT LEVEL 4 [facility] [id number] [facility] 2022-12-16 00:00:00 2022-12-16 00:00:00 (TEL) [facility]LMLC ST[facility] [id number] [facility] 2022-10-27 15:30:00 2022-10-27 17:26:37 Outpatient [facility] [id number] [facility] 2022-10-27 15:30:00 2022-10-27 17:26:37 [facility] [id number] [facility] 2022-10-03 00:00:00 2022-10-03 00:00:00 (TEL) [facility] [id number] [facility] 2022-10-03 00:00:00 2022-10-03 00:00:00 [facility] [id number] [facility] 2022-10-03 00:00:00 2022-10-03 00:00:00 [facility] [id number] [facility] 2022-10-02 00:00:00 2022-10-02 00:00:00 [facility] [id number] [facility] 2022-09-30 12:00:00 2022-09-30 12:15:00 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 Visit Lab, Ang - Aleksandar Sam [facility] ABBIE[facility] [id number] [facility] 2022-09-30 11:00:00 2022-09-30 11:55:20 [id number] 2022-09-30 11:00:00 2022-09-30 11:55:20 Office Visit Aidee Vargas [facility] [id number] [facility] 2022-09-30 00:00:00 2022-09-30 00:00:00 Orders Only Doctor Unassigned, [place] [facility] [id number] [facility] 2022-09-25 00:00:00 2022-09-25 00:00:00 OFFICE VISIT ESTAB PT LEVEL 4 [facility] [id number] [facility] 2022-09-04 00:00:00 2022-09-04 00:00:00 (TEL) STLMLC [facility] [id number] [facility] 2022-06-18 00:00:00 2022-06-18 00:00:00 (TEL) STLMLC [facility] [id number] [facility] 2022-06-11 00:00:00 2022-06-11 00:00:00 OFFICE VISIT ESTAB PT LEVEL 4 [facility] [id number] [facility] 2022-04-22 00:00:00 2022-04-22 00:00:00 (TEL) STLMLC ST[facility]C [id number] [facility] 2022-04-10 00:00:00 2022-04-10 00:00:00 (TEL) STLMLC ST[facility]C [id number] [facility] 2022-02-21 00:00:00 2022-02-21 00:00:00 (TEL) STLMLC STLMLC [id number] [facility] 2022-02-21 00:00:00 2022-02-21 00:00:00 (MCR WELL) Medicare Wellness STLMLC STLMLC [id number] [facility] 2022-02-21 00:00:00 2022-02-21 00:00:00 OFFICE VISIT ESTAB PT LEVEL 4 [facility] [id number] [facility] 2022-01-28 00:00:00 2022-01-28 00:00:00 (TEL) STLMLC STLMLC [id number] [facility] 2022-01-03 00:00:00 2022-01-03 00:00:00 (TEL) STLMLC ST[facility]MLC [id number] [facility] 2021-11-19 00:00:00 2021-11-19 00:00:00 OFFICE VISIT EST PT LEVEL 3 [facility] [id number] [facility] 2021-11-11 00:00:00 2021-11-11 00:00:00 OFFICE VISIT NEW PT LEVEL 4 [facility] [id number] [facility]
[2023-09-02 14:59] LABS: Absolute Lymphocytes (CBC) 1.3 K/uL (0.7-4.9); Hematocrit 35.8 % (36.0-45.0); Lymphocytes % 27.3 % (15.3-44.8); MCV 88.1 fL (80-100); MPV 8.2 fL (7.6-11.3); Platelets 206 thou/uL (152-406); RBC Red Blood Cell Count 4.06 M/uL (3.86-4.86)
[2023-09-02 15:13] LABS: Albumin 3.6 g/dL (3.4-5.0); Bilirubin Total 0.4 mg/dL (0.2-1.0); Potassium 3.3 mEq/L (3.5-5.1); Protein, Total 6.9 g/dL (6.4-8.2)
[2023-09-02 15:40] LABS: Specific Gravity 1.006 (1.005-1.030); Urine Bilirubin NEGATIVE (Negative); Urine Blood Negative (Negative); Urine Clarity Clear (Clear); Urine Color Light-Yellow (Yellow); Urine Glucose NEGATIVE (Negative); Urine Protein NEGATIVE (Negative); Urine Urobilinogen Normal (Normal)
--- NOTE | 2023-09-02 15:52 | EDPHYS ---
Physician Documentation [facility] Name: Christi Bland Age: 73 yrs Sex: Female : 1950 Arrival Date: 09/02/2023 Time: 13:44 Bed 16 Private MD: Steve Rm ED Physician Ty Dey HPI: 09/02 16:30 This 73 yrs old Female presents to ER via Ambulatory with complaints of Flu kb Symptoms. 16:30 Patient is a 73-year-old female who presents for cough, congestion, sore throat, fever, kb malaise that started this morning. States she is actually had fever for the last few months due to bacteria in her abdomen has been being treated by her PCP and GI. States she saw her PCP yesterday and has an appointment with her GI doctor tomorrow. Reports acid reflux and decreased appetite that has been ongoing as well. States she has had H. pylori in the past and that is what she is can be tested for tomorrow. Also reports she has been exposed to black mold for a long period of time at a rental house so she gets cough and congestion with shortness of breath every so often.. Historical: - Allergies: 13:56 Vicodin; bp - Home Meds: 13:56 BuSpar Oral [Active]; Cymbalta 60 mg Oral capsule [Active]; Hydrocodone-Acetaminophen bp Oral [Active]; - PMHx: 13:56 Anxiety; Bipolar disorder; breast cancer; depressive disorder; bp - PSHx: 13:56 mastectomy; bp - Immunization history:: Adult Immunizations up to date. - Social history:: Smoking status: Patient denies any tobacco usage or history of. ROS: 16:29 Cardiovascular: Negative for chest pain, palpitations, and edema, kb 16:29 Constitutional: Positive for body aches, chills, fatigue, fever, malaise, 16:29 ENT: Positive for rhinorrhea, sinus congestion, sore throat, 16:29 Respiratory: Positive for cough, 16:29 Abdomen/GI: Positive for abdominal pain, Negative for nausea, vomiting, and diarrhea, 16:29 All other systems are negative, Exam: 16:29 Constitutional: This is a well developed, well nourished patient who is awake, alert, kb and in no acute distress. Head/Face: Normocephalic, atraumatic. ENT: Moist Mucous membranes Cardiovascular: Regular rate Respiratory: Respirations even and unlabored. No increased work of breathing. Talking in full sentences Abdomen/GI: Soft, non-tender. No distention Skin: Warm, dry with normal turgor. Normal color. MS/ Extremity: Pulses equal, no cyanosis. Neurovascular intact. Full, normal range of motion. Neuro: Awake and alert, GCS 15, oriented to person, place, time, and situation. Moves all extremities. Normal gait. Vital Signs: 13:53 BP 144 / 87; Pulse 98; Resp 16; Temp 97.6; Pulse Ox 99% ; bp 14:20 BP 140 / 82; Pulse 88; Resp 17; Pulse Ox 99% on R/A; rs5 16:00 BP 144 / 83; Pulse 76; Resp 18; Temp 97.7(O); Pulse Ox 99% on R/A; rs5 MDM: 13:48 Patient medically screened. kb 16:28 Differential diagnosis: flu, covid, uri, uti, abnormal electrlytes. Data reviewed: kb vital signs, nurses notes. Counseling: I had a detailed discussion with the patient and/or guardian regarding the historical points, exam findings, and any diagnostic results supporting the discharge/admit diagnosis, lab results, the need for outpatient follow up, a family practitioner, to return to the emergency department if symptoms worsen or persist or if there are any questions or concerns that arise at home. 09/02 13:56 Order name: Flu; Complete Time: 15:21 kb 09/02 13:56 Order name: COVID-19 SARS RT PCR; Complete Time: 15:31 kb 09/02 13:56 Order name: Strep; Complete Time: 15:21 kb 09/02 13:56 Order name: CBC with Diff; Complete Time: 15:03 kb 09/02 13:56 Order name: CMP; Complete Time: 15:21 kb 09/02 13:56 Order name: Lipase; Complete Time: 15:21 kb 09/02 13:56 Order name: Urinalysis w/ reflexes; Complete Time: 15:45 kb 09/02 15:14 Order name: Throat Culture EDCO 09/02 13:56 Order name: IV Saline Lock; Complete Time: 14:35 kb 09/02 13:56 Order name: Labs collected and sent; Complete Time: 14:35 kb Administered Medications: 15:45 Drug: Potassium Chloride PO 20 mEq PO once Route: PO; rs5 16:20 Follow up: Response: No adverse reaction rs5 15:51 Drug: Famotidine IVP 20 mg IVP once; dilute with 10 mL 0.9% NaCl; give over 2 minutes rs5 Route: IVP; Site: left antecubital; 16:20 Follow up: Response: No adverse reaction rs5 15:51 Drug: Ondansetron IVP 4 mg IVP once; over 2 minutes Route: IVP; Site: left antecubital; rs5 16:20 Follow up: Response: No adverse reaction rs5 Disposition: 19:51 I was immediately available on-site in the Emergency Department for consultation in the ms3 care of the patient. Disposition Summary: 09/02/23 15:51 Discharge Ordered Notes: Location: Home kb Condition: Stable kb Diagnosis - Acute upper respiratory infection, unspecified kb Followup: kb - With: Emergency Department - When: As needed - Reason: Worsening of condition Followup: kb - With: Private Physician - When: 2 - 3 days - Reason: Recheck today's complaints, Continuance of care, Re-evaluation by your physician Discharge Instructions: - Discharge Summary Sheet kb - Upper Respiratory Infection, Adult, [id number] kb Forms: - Medication Reconciliation Form kb - Thank You Letter kb - Antibiotic Education kb - Prescription Opioid Use kb - Patient Portal Instructions kb - Leadership Thank You Letter kb Signatures: Dispatcher [employer] EDCO Taylor Hong, CARRIE KERN-Twan Gomes, RN RN Ty Cao DO DO ms3 Jerome Nath, RN RN rs5 Corrections: (The following items were deleted from the chart) 15:52 15:51 Abdominal pain, Generalized kb kb 16:30 16:29 Constitutional: This is a well developed, well nourished patient who is awake, kb alert, and in no acute distress. Head/Face: Normocephalic, atraumatic. ENT: Moist Mucous membranes Cardiovascular: Regular rate Respiratory: Respirations even and unlabored. No increased work of breathing. Talking in full sentences Abdomen/GI: Soft, non-tender. No distention Skin: Warm, dry with normal turgor. Normal color. MS/ Extremity: Pulses equal, no cyanosis. Neurovascular intact. Full, normal range of motion. Neuro: Awake and alert, GCS 15, oriented to person, place, time, and situation. Moves all extremities. Normal gait. kb
--- NOTE | 2023-09-02 15:52 | ER ---
Nurse's Notes [facility] Name: Christi Bland Age: 73 yrs Sex: Female : 1950 Arrival Date: 09/02/2023 Time: 13:44 Bed 16 Private MD: Steve Rm Diagnosis: Acute upper respiratory infection, unspecified Presentation: 09/02 13:53 Chief complaint: Patient states: "I BEEN EXPOSED TO PYLORI AND BLACK MOLD. I'M IN SO bp MUCH PAIN. I WOKE UP AND I WAS OUTSIDE CAUSE I WANTED MORE AIR. I WAS AT MY DOCTOR YESTERDAY. I NEED TO BE TESTED FOR TOXIN LEVELS.". Coronavirus screen: At this time, the client does not indicate any symptoms associated with coronavirus-19. Ebola Screen: No symptoms or risks identified at this time. Initial Sepsis Screen: Does the patient meet any 2 criteria? No. Patient's initial sepsis screen is negative. Does the patient have a suspected source of infection? No. Patient's initial sepsis screen is negative. Risk Assessment: Do you want to hurt yourself or someone else? Patient reports no desire to harm self or others. Note PT CONTINUES TO EXPAND LIST OF CHIEF COMPLAINTS, ANSWERING AFFIRMATIVE TO GLOBAL REVIEW OF SYSTEMS BY PROVIDER. Onset of symptoms is unknown. 13:53 Method Of Arrival: Ambulatory bp 13:53 Acuity: LETICIA 3 bp Triage Assessment: 13:50 General: Appears in no apparent distress. uncomfortable, Behavior is calm, cooperative. rs5 Historical: - Allergies: 13:56 Vicodin; bp - Home Meds: 13:56 BuSpar Oral [Active]; Cymbalta 60 mg Oral capsule [Active]; Hydrocodone-Acetaminophen bp Oral [Active]; - PMHx: 13:56 Anxiety; Bipolar disorder; breast cancer; depressive disorder; bp - PSHx: 13:56 mastectomy; bp - Immunization history:: Adult Immunizations up to date. - Social history:: Smoking status: Patient denies any tobacco usage or history of. Screenin:50 [facility] ED Fall Risk Assessment (Adult) History of falling in the last 3 months, rs5 including since admission No falls in past 3 months (0 pts) Confusion or Disorientation No (0 pts) Intoxicated or Sedated No (0 pts) Impaired Gait No (0 pts) Mobility Assist Device Used No (0 pt) Altered Elimination No (0 pt) Score/Fall Risk Level 0 - 2 = Low Risk Oriented to surroundings, Maintained a safe environment. Abuse screen: Denies threats or abuse. Nutritional screening: No deficits noted. Tuberculosis screening: No symptoms or risk factors identified. Assessment: 14:00 General: Appears in no apparent distress. uncomfortable, Behavior is calm, cooperative. rs5 Pain: Complains of pain in generalized body aches Pain does not radiate. Pain currently is 4 out of 10 on a pain scale. Neuro: Level of Consciousness is awake, alert, obeys commands, Oriented to person, place, time, situation. Cardiovascular: Heart tones S1 S2 present Patient's skin is warm and dry. Rhythm is regular. Respiratory: Airway is patent Respiratory effort is even, unlabored, Respiratory pattern is regular, symmetrical, Breath sounds are clear bilaterally. GI: Abdomen is round non-distended, Bowel sounds present X 4 quads. Abd is soft and non tender X 4 quads. : No signs and/or symptoms were reported regarding the genitourinary system. EENT: No signs and/or symptoms were reported regarding the EENT system. Derm: Skin is intact, Skin is pink, warm \\T\\ dry. Musculoskeletal: Range of motion: intact in all extremities. 15:20 Reassessment: Patient and/or family updated on plan of care and expected duration. Pain rs5 level reassessed. Patient is alert, oriented x 3, equal unlabored respirations, skin warm/dry/pink. Patient states feeling better. Patient states symptoms have improved. 16:10 Reassessment: No changes from previously documented assessment. rs5 Vital Signs: 13:53 BP 144 / 87; Pulse 98; Resp 16; Temp 97.6; Pulse Ox 99% ; bp 14:20 BP 140 / 82; Pulse 88; Resp 17; Pulse Ox 99% on R/A; rs5 16:00 BP 144 / 83; Pulse 76; Resp 18; Temp 97.7(O); Pulse Ox 99% on R/A; rs5 ED Course: 13:47 Patient arrived in ED. mr 13:47 Steve Rm MD is Private Physician. mr 13:47 Taylor [facility]C [facility] kb 13:47 Ty Dey DO is Attending Physician. kb 13:50 Patient has correct armband on for positive identification. Placed in gown. Bed in low rs5 position. Call light in reach. Side rails up X2. 13:56 Triage completed. bp 13:56 Arm band placed on. bp 14:05 Inserted saline lock: 20 gauge in left antecubital area, using aseptic technique. Blood rs5 collected. 14:12 Jerome Nath, RN is Primary Nurse. rs5 16:20 No provider procedures requiring assistance completed. rs5 16:20 IV discontinued, intact, bleeding controlled, No redness/swelling at site. Pressure rs5 dressing applied. Administered Medications: 15:45 Drug: Potassium Chloride PO 20 mEq PO once Route: PO; rs5 16:20 Follow up: Response: No adverse reaction rs5 15:51 Drug: Famotidine IVP 20 mg IVP once; dilute with 10 mL 0.9% NaCl; give over 2 minutes rs5 Route: IVP; Site: left antecubital; 16:20 Follow up: Response: No adverse reaction rs5 15:51 Drug: Ondansetron IVP 4 mg IVP once; over 2 minutes Route: IVP; Site: left antecubital; rs5 16:20 Follow up: Response: No adverse reaction rs5 Medication: 15:00 VIS not applicable for this client. rs5 Outcome: 15:51 Discharge ordered by . kb 16:20 Discharged to home ambulatory, rs5 16:20 Condition: stable 16:20 Discharge instructions given to patient, Instructed on discharge instructions, follow up and referral plans. Demonstrated understanding of instructions, follow-up care, 16:23 Patient left the ED. rs5 Signatures: Taylor Hong, ERLIN-C DEVELOPMENT EDUCATOR-Júniorb Christi Lopez, Reg Reg Twan Jenkins, RN RN Jerome Salcedo, RN RN rs5 Corrections: (The following items were deleted from the chart) 19:27 14:00 Pain: Complains of pain in generalized body aches Pain does not radiate. Pain rs5 currently is 5 out of 10 on a pain scale. rs5
[2023-09-02 16:32] VITALS: BP 144/87; TEMP 97.6; O2SAT 99
== END ==
LOC: ER 13:44
DX: J06.9 Acute upper respiratory infection, unspecified (principal); F31.9 Bipolar disorder, unspecified; Z11.52 Encounter for screening for COVID-19; Z88.5 Allergy status to narcotic agent
CPT/HCPCS: 87070; 85025; 36415; 87081; 81003; 83690; 80053; 87635; 87804 ×2; J2405; 96374; 96375; 99284

== ENCOUNTER → 2023-09-07 | Emergency (ER) | payer OTHER ==
[~2023-09-07] MED LIST changes: +MAGNES/ALUMIN/SIMET 30ML UCUP ONE; +PANTOPRAZOLE 40 MG INJ ONE; -POTASSIUM CL SA 10 MEQ TAB PO ONE
--- OUTSIDE RECORDS SUMMARY | 2023-09-07 12:28 | XMS REPORT | Continuity of Care Document ---
Author Name Unknown Address [address] [facility] [address] [place] [address] [facility] thconnect Address [address] [facility] [address] [place] [address] Care Team Providers Care Candle Maker Name Role Phone SANTANA PAYAN Primary Care Physician Unavailab Jillian Pike Attending Clinician Unavailable [email or web address] Attending Clinician Unavaila AIDEE Sprague Attending Clinician Unavailable Lab, Ang - Db Attending Clinician Unavailable Doctor Unassigned, [place] Attending Clinician U navailable [email or web address] Admitting Clinician Unavaila elvi Payers Payer Name Policy Type Policy Number Effective Date Expirati on Date Source [facility] (MEDICARE REPLACEMENT/ADVANT AGE - PPO) [id number] [facility] [employer] TRS/ERS [facility] PPO 1 [id number] 2021 00:00:00 [facility] PPO [id number] 2020 00:00:00 Problems Condition Name Condition Details Condition Category Status Onset Date Resolution Date Last Treatment Date Treating Clinician Comments Source Bipolar 1 disorder Bipolar 1 disorder Problem [facility] Dolomite lesion of lung Dolomite lesion of lung Problem [facility] [id number] Nicotine dependence , cigarettes , with unspecifie d nicotine-i nduced disorders Problem [facility] Malignant neoplasm of female breast Malignant neoplasm of unspecifie d site of right female breast Problem [facility] Tobacco user Smokes cigarettes Problem [facility] Age-relate d osteoporos is Age-relate d osteoporos is without current pathologic al fracture Problem [facility] Nicotine dependence Nicotine dependence Problem [facility] [id number] Non-season al allergic rhinitis due to pollen Problem [facility] Solitary pulmonary nodule Solitary pulmonary nodule Problem [facility] [id number] Primary insomnia Problem [facility] Adjustment disorder with anxiety Adjustment disorder with anxiety Problem [facility] [id number] Sleep disorder, unspecifie d Problem [facility] Bipolar affective disorder Affective bipolar disorder Problem [facility] [id number] Bipolar 1 disorder, depressed Problem [facility] [id number] PTSD (post-trau matic stress disorder) Problem [facility] Pain co-occurre nt and due to varicose veins of bilateral legs Varicose veins of bilateral lower extremitie s with pain Problem [facility] [id number] Vaginal bleeding Problem [facility] [id number] Mixed stress and urge urinary incontinen ce Problem [facility] Nicotine dependence , uncomplica emelina, unspecifie d nicotine product type Nicotine dependence , uncomplica emelina, unspecifie d nicotine product type Problem [facility] Allergies, Adverse Reactions, Alerts Allergy Name Allergy Type Status Severity Reaction(s) Onset Date Inactive Date Treating Clinician Comments Source HYDROCOD ONE-ACET AMINOPHE N DRUG Active Hallucinates 09-30 00:00: 00 [facility] Hydrocod one-Acet aminophe n Drug Allergy Active Hallucinatio ns 09-30 00:00: 00 [facility] NO KNOWN ALLERGIE S Drug Class Active [facility] Social History Social Habit Start Date Stop Date Quantity Comments Source History of Tobacco Use Current Smoker [facility] Exposure to SARS-CoV-2 (event) 2022-10-17 00:00:00 2022-10-27 15:03:00 Not sure [facility] Alcohol intake 2022-10-27 00:00:00 2022-10-27 00:00:00 Lifetime non-drinker (finding) [facility] Tobacco use and exposure 2022-10-27 00:00:00 2022-10-27 00:00:00 Smokeless tobacco non-user [facility] Sex Assigned At 1950 00:00:00 1950 00:00:00 [facility] Smoking Status Start Date Stop Date Source Tobacco smoking consumption unknown [facility] Current Smoker 2023-02-04 00:00:00 [facility] Never smoked tobacco [facility] Medications Ordered Medication Name Filled Medication Name Start Date Stop Date Current Medication? Ordering Clinician Indication Dosage Frequency Signature (SIG) Comments Components Source clonazePAM 0.5 mg tablet 2021-09 00:00: 00 Yes .5mg Take 0.5 mg by mouth as needed. [facility] letrozole 2.5 mg tablet 2021-09 00:00: 00 Yes 2.5mg Take 2.5 mg by mouth daily [facility] clonazePAM 0.5 mg tablet 2021-09 00:00: 00 Yes .5mg Take 0.5 mg by mouth as needed. [facility] letrozole 2.5 mg tablet 2021-09 00:00: 00 Yes 2.5mg Take 2.5 mg by mouth daily [facility] clonazePAM 0.5 mg tablet 2021-09 00:00: 00 Yes .5mg Take 0.5 mg by mouth as needed. [facility] letrozole 2.5 mg tablet 2021-09 00:00: 00 Yes 2.5mg Take 2.5 mg by mouth daily [facility] clonazePAM 0.5 mg tablet 2021-09 00:00: 00 Yes .5mg Take 0.5 mg by mouth as needed. [facility] letrozole 2.5 mg tablet 2021-09 00:00: 00 Yes 2.5mg Take 2.5 mg by mouth daily [facility] clonazePAM 0.5 mg tablet 2021-09 00:00: 00 Yes .5mg Take 0.5 mg by mouth as needed. [facility]5 [facility] 2021-09 00:00: 00 Yes 2.5mg Take 2.5 mg by mouth daily [facility] clonazePAM 0.5 mg tablet 2021-09 00:00: 00 Yes .5mg Take 0.5 mg by mouth as needed. [facility] let[facility] 2.5 mg tablet 2021-09 00:00: 00 Yes 2.5mg Take 2.5 mg by mouth daily [facility] clonazePAM 0.5 mg tablet 2021-09 00:00: 00 Yes .5mg Take 0.5 mg by mouth as needed. [facility] letrozole 2.5 mg tablet 2021-09 00:00: 00 Yes 2.5mg Take 2.5 mg by mouth daily [facility] clonazePAM 0.5 mg tablet 2021-09 00:00: 00 Yes .5mg Take 0.5 mg by mouth as needed. [facility] letrozole 2.5 mg tablet 2021-09 00:00: 00 Yes 2.5mg Take 2.5 mg by mouth daily [facility] busPIRone 5 mg tablet 2021-09 00:00: 00 Yes 5mg Take 5 mg by mouth in the morning and 5 mg at noon and 5 mg in the evening. [facility] DULoxetine 60 mg capsule 2021-09 00:00: 00 Yes 60mg Take 60 mg by mouth in the morning. [facility] busPIRone 5 mg tablet 2021-09 00:00: 00 Yes 5mg Take 5 mg by mouth in the morning and 5 mg at noon and 5 mg in the evening. [facility] DULoxetine 60 mg capsule 2021-09 00:00: 00 Yes 60mg Take 60 mg by mouth in the morning. [facility] busPIRone 5 mg tablet 2021-09 00:00: 00 Yes 5mg Take 5 mg by mouth in the morning and 5 mg at noon and 5 mg in the evening. [facility] DULoxetine 60 mg capsule 2021-09 00:00: 00 Yes 60mg Take 60 mg by mouth in the morning. [facility] bus[facility] mg tablet 2021-09 00:00: 00 Yes 5mg Take 5 mg by mouth in the morning and 5 mg at noon and 5 mg in the evening. [facility] DULoxetine 60 mg capsule 2021-09 00:00: 00 Yes 60mg Take 60 mg by mouth in the morning. [facility] busPIRone 5 mg tablet 2021-09 00:00: 00 Yes 5mg Take 5 mg by mouth in the morning and 5 mg at noon and 5 mg in the evening. [facility] DULoxetine 60 mg capsule 2021-09 00:00: 00 Yes 60mg Take 60 mg by mouth in the morning. [facility] busPIRone 5 mg tablet 2021-09 00:00: 00 Yes 5mg Take 5 mg by mouth in the morning and 5 mg at noon and 5 mg in the evening. [facility] DULoxetine 60 mg capsule 2021-09 00:00: 00 Yes 60mg Take 60 mg by mouth in the morning. [facility] busPIRone 5 mg tablet 2021-09 00:00: 00 Yes 5mg Take 5 mg by mouth in the morning and 5 mg at noon and 5 mg in the evening. [facility] DULoxetine 60 mg capsule 2021-09 00:00: 00 Yes 60mg Take 60 mg by mouth in the morning. [facility] busPIRone 5 mg tablet 2021-09 00:00: 00 Yes 5mg Take 5 mg by mouth in the morning and 5 mg at noon and 5 mg in the evening. [facility] DULoxetine 60 mg capsule 2021-09- 00:00: 00 Yes 60mg Take 60 mg by mouth in the morning. [facility] DULoxetine 30 mg capsule 2021-09 00:00: 00 Yes 30mg Take 30 mg by mouth in the morning. [facility] DULoxetine 30 mg capsule 2021-09 00:00: 00 Yes 30mg Take 30 mg by mouth in the morning. [facility] DULoxetine 30 mg capsule 2021-09 00:00: 00 Yes 30mg Take 30 mg by mouth in the morning. [facility] DULoxetine 30 mg capsule 2021-09 00:00: 00 Yes 30mg Take 30 mg by mouth in the morning. [facility] DULoxetine 30 mg capsule 2021-09 00:00: 00 Yes 30mg Take 30 mg by mouth in the morning. [facility] DULoxetine 30 mg capsule 2021-09 00:00: 00 Yes 30mg Take 30 mg by mouth in the morning. [facility] DULoxetine 30 mg capsule 2021-09 00:00: 00 Yes 30mg Take 30 mg by mouth in the morning. [facility] DULoxetine 30 mg capsule 2021-09 00:00: 00 Yes 30mg Take 30 mg by mouth in the morning. [facility] doxepin 10 mg capsule 2021-09 00:00: 00 Yes 10mg Take 10 mg by mouth at bedtime. [facility] doxepin 10 mg capsule 2021-09 00:00: 00 Yes 10mg Take 10 mg by mouth at bedtime. [facility] doxepin 10 mg capsule 2021-09 00:00: 00 Yes 10mg Take 10 mg by mouth at bedtime. [facility] doxepin 10 mg capsule 2021-09 00:00: 00 Yes 10mg Take 10 mg by mouth at bedtime. [facility] doxepin 10 mg capsule 2021-09 00:00: 00 Yes 10mg Take 10 mg by mouth at bedtime. [facility] doxepin 10 mg capsule 2021-09 00:00: 00 Yes 10mg Take 10 mg by mouth at bedtime. [facility] doxepin 10 mg capsule 2021-09 00:00: 00 Yes 10mg Take 10 mg by mouth at bedtime. [facility] doxepin 10 mg capsule 2021-09 00:00: 00 Yes 10mg Take 10 mg by mouth at bedtime. [facility] Doxylamine Succinate (Sleep) 25 MG Doxylamine Succinate (Sleep) 25 MG 2-0 11-19 00:00: 00 No 1{table t_at_be dtime_a s_neede d} QD Doxylamine Succinate (Sleep) 25 MG Doxylamine Succinate (Sleep) 25 MG Doxylamine Succinate (Sleep) 25 MG 2-0 11-19 00:00: 00 No 1{table t_at_be dtime_a s_neede d} QD Doxylamine Succinate (Sleep) 25 MG Doxylamine Succinate (Sleep) 25 MG Doxylamine Succinate (Sleep) 25 MG 2-0 11-19 00:00: 00 No 1{table t_at_be dtime_a s_neede d} QD Doxylamine Succinate (Sleep) 25 MG Doxylamine Succinate (Sleep) 25 MG Doxylamine Succinate (Sleep) 25 MG 2-0 11-19 00:00: 00 No 1{table t_at_be dtime_a s_neede d} QD Doxylamine Succinate (Sleep) 25 MG Doxylamine Succinate (Sleep) 25 MG Doxylamine Succinate (Sleep) 25 MG 2-0 11-19 00:00: 00 No 1{table t_at_be dtime_a [...] 25 MG Doxylamine Succinate (Sleep) 25 MG 3-08 00:00: 00 No 1{table t_at_be dtime_a s_neede d} QD Doxylamine Succinate (Sleep) 25 MG Doxylamine Succinate (Sleep) 25 MG Doxylamine Succinate (Sleep) 25 MG 3-08 00:00: 00 No 1{table t_at_be dtime_a s_neede d} QD Doxylamine Succinate (Sleep) 25 MG Toradol (Ketorolac) Toradol (Ketorolac) 11-11 00:00: 00 No 30mg [facility] Kenalog (Triamcinol one) Kenalog (Triamcinol one) - 00:00: 00 No 40mg [facility] Toradol (Ketorolac) Toradol (Ketorolac) 11-11 00:00: 00 No 30mg [facility] Kenalog (Triamcinol one) Kenalog (Triamcinol one) 11-11 00:00: 00 No 40mg [facility] Toradol (Ketorolac) Toradol (Ketorolac) 11-11 00:00: 00 No 30mg [facility] Kenalog (Triamcinol one) Kenalog (Triamcinol one) 11-11 00:00: 00 No 40mg [facility] Toradol (Ketorolac) Toradol (Ketorolac) 11-11 00:00: 00 No 30mg [facility] Kenalog (Triamcinol one) Kenalog (Triamcinol one) 2- 00:00: 00 No 40mg [facility] Toradol (Ketorolac) Toradol (Ketorolac) 11-11 00:00: 00 No 30mg [facility] Kenalog (Triamcinol one) Kenalog (Triamcinol one) 0 11-11 00:00: 00 No 40mg [facility] Toradol (Ketorolac) Toradol (Ketorolac) 0 11-11 00:00: 00 No 30mg [facility] Kenalog (Triamcinol one) Kenalog (Triamcinol one) 0 11-11 00:00: 00 No 40mg [facility] Toradol (Ketorolac) Toradol (Ketorolac) 0 11-11 00:00: 00 No 30mg [facility] Kenalog (Triamcinol one) Kenalog (Triamcinol one) 0 11-11 00:00: 00 No 40mg [facility] Toradol (Ketorolac) Toradol (Ketorolac) 0 11-11 00:00: 00 No 30mg [facility] Kenalog (Triamcinol one) Kenalog (Triamcinol one) 0 11-11 00:00: 00 No 40mg [facility] Toradol (Ketorolac) Toradol (Ketorolac) 0 11-11 00:00: 00 No 30mg [facility] Kenalog (Triamcinol one) Kenalog (Triamcinol one) 0 11-11 00:00: 00 No 40mg [facility] Toradol (Ketorolac) Toradol (Ketorolac) 0 11-11 00:00: 00 No 30mg [facility] Kenalog (Triamcinol one) Kenalog (Triamcinol one) 0 11-11 00:00: 00 No 40mg [facility] Toradol (Ketorolac) Toradol (Ketorolac) 0 11-11 00:00: 00 No 30mg [facility] Kenalog (Triamcinol one) Kenalog (Triamcinol one) 0 11-11 00:00: 00 No 40mg [facility] Toradol (Ketorolac) Toradol (Ketorolac) 0 11-11 00:00: 00 No 30mg [facility] Kenalog (Triamcinol one) Kenalog (Triamcinol one) 0 11-11 00:00: 00 No 40mg [facility] Toradol (Ketorolac) Toradol (Ketorolac) 0 11-11 00:00: 00 No 30mg [facility] Kenalog (Triamcinol one) Kenalog (Triamcinol one) 0 11-11 00:00: 00 No 40mg [facility] Toradol (Ketorolac) Toradol (Ketorolac) 0 11-11 00:00: 00 No 30mg [facility] Kenalog (Triamcinol one) Kenalog (Triamcinol one) 0 11-11 00:00: 00 No 40mg [facility] Toradol (Ketorolac) Toradol (Ketorolac) 0 11-11 00:00: 00 No 30mg [facility] Kenalog (Triamcinol one) Kenalog (Triamcinol one) 0 11-11 00:00: 00 No 40mg [facility] Toradol (Ketorolac) Toradol (Ketorolac) 0 11-11 00:00: 00 No 30mg [facility] Kenalog (Triamcinol one) Kenalog (Triamcinol one) 0 11-11 00:00: 00 No 40mg [facility] Toradol (Ketorolac) Toradol (Ketorolac) 0 11-11 00:00: 00 No 30mg [facility] Kenalog (Triamcinol one) Kenalog (Triamcinol one) 0 11-11 00:00: 00 No 40mg [facility] Toradol (Ketorolac) Toradol (Ketorolac) 2021-0 11-11 00:00: 00 No 30mg [facility] Kenalog (Triamcinol one) Kenalog (Triamcinol one) 2021-0 2 00:00: 00 No 40mg [facility] Toradol (Ketorolac) Toradol (Ketorolac) 2021-0 11-11 00:00: 00 No 30mg [facility] Kenalog (Triamcinol one) Kenalog (Triamcinol one) 2021-0 11-11 00:00: 00 No 40mg [facility] Oxybutynin Chloride 5 MG Oxybutynin Chloride 5 MG 2021-0 11-11 00:00: 00 02-17 00:00 :00 No 1{table t} QD Oxybutynin Chloride 5 MG Oxybutynin Chloride 5 MG Oxybutynin Chloride 5 MG 2021-0 11-11 00:00: 00 02-17 00:00 :00 No 1{table t} QD Oxybutynin Chloride 5 MG Oxybutynin Chloride 5 MG Oxybutynin Chloride 5 MG 2021-0 11-11 00:00: 00 02-17 00:00 :00 No 1{table [...] HCl 2 MG 2021-0 11-11 00:00: 00 12-11 00:00 :00 No 1{table t_as_ne eded} QD tiZANidine HCl 2 MG Loratadine 10 MG Loratadine 10 MG 2021-0 11-11 00:00: 00 12-11 00:00 :00 No 1{table [...] HIGH DOSE OVER 65 2021-09-13 13:44:00 Completed [facility] FLUZONE HIGH DOSE OVER 65 FLUZONE HIGH DOSE OVER 65 2021-09-13 13:44:00 Completed [facility] FLUZONE HIGH DOSE OVER 66 FLUZONE HIGH DOSE OVER 65 2021-09-13 13:44:00 Completed [facility] FLUZONE HIGH DOSE OVER 66 FLUZONE HIGH DOSE OVER 65 2021-09-13 13:44:00 Completed [facility] FLUZONE HIGH DOSE OVER 65 FLUZONE HIGH DOSE OVER 65 2021-09-13 13:44:00 Completed [facility] FLUZONE HIGH DOSE OVER 65 FLUZONE HIGH DOSE OVER 65 2021-09-13 13:44:00 Completed [facility] FLUZONE HIGH DOSE OVER 65 FLUZONE HIGH DOSE OVER 65 2021-09-13 13:44:00 Completed [facility] FLUZONE HIGH DOSE OVER 65 FLUZONE HIGH DOSE OVER 65 2021-09-13 13:44:00 Completed [facility] FLUZONE HIGH DOSE OVER 65 FLUZONE HIGH DOSE OVER 65 2021-09-13 13:44:00 Completed [facility] FLUZONE HIGH DOSE OVER 65 FLUZONE HIGH DOSE OVER 65 2021-09-13 13:44:00 Completed [facility] FLUZONE HIGH DOSE OVER 65 FLUZONE HIGH DOSE OVER 65 2021-09-13 13:44:00 Completed [facility] FLUZONE HIGH DOSE OVER 65 FLUZONE HIGH DOSE OVER 65 2021-09-13 13:44:00 Completed [facility] FLUZONE HIGH DOSE OVER 65 FLUZONE HIGH DOSE OVER 65 2021-09-13 13:44:00 Completed [facility] FLUZONE HIGH DOSE OVER 65 FLUZONE HIGH DOSE OVER 65 2021-09-13 13:44:00 Completed [facility] FLUZONE HIGH DOSE OVER 65 FLUZONE HIGH DOSE OVER 65 2021-09-13 13:44:00 Completed [facility] SARS-COV-2 COVID-19 PFIZER VACCINE 2020-12-22 00:00:00 Completed [facility] SARS-COV-2 COVID-19 PFIZER VACCINE 2020-12-22 00:00:00 Completed [facility] SARS-COV-2 COVID-19 PFIZER VACCINE 2020-12-22 00:00:00 Completed [facility] SARS-COV-2 COVID-19 PFIZER VACCINE 2020-12-22 00:00:00 Completed [facility] SARS-COV-2 COVID-19 PFIZER VACCINE 2020-12-22 00:00:00 Completed [facility] SARS-COV-2 COVID-19 PFIZER VACCINE 2020-12-22 00:00:00 Completed [facility] SARS-COV-2 COVID-19 PFIZER VACCINE 2020-12-22 00:00:00 Completed [facility] SARS-COV-2 COVID-19 PFIZER VACCINE 2020-12-22 00:00:00 Completed [facility] SARS-COV-2 COVID-19 PFIZER VACCINE 2020-12-22 00:00:00 Completed [facility] SARS-COV-2 COVID-19 PFIZER VACCINE 2020-12-01 00:00:00 Completed [facility] SARS-COV-2 COVID-19 PFIZER VACCINE 2020-12-01 00:00:00 Completed [facility] SARS-COV-2 COVID-19 PFIZER VACCINE 2020-12-01 00:00:00 Completed [facility] SARS-COV-2 COVID-19 PFIZER VACCINE 2020-12-01 00:00:00 Completed [facility] SARS-COV-2 COVID-19 PFIZER VACCINE 2020-12-01 00:00:00 Completed [facility] SARS-COV-2 COVID-19 PFIZER VACCINE 2020-12-01 00:00:00 Completed [facility] SARS-COV-2 COVID-19 PFIZER VACCINE 2020-12-01 00:00:00 Completed [facility] SARS-COV-2 COVID-19 PFIZER VACCINE 2020-12-01 00:00:00 Completed [facility] SARS-COV-2 COVID-19 PFIZER VACCINE 2020-12-01 00:00:00 Completed [facility] FLUZONE HIGH DOSE OVER 65 FLUZONE HIGH DOSE OVER 65 Unknown Completed [facility] FLUZONE HIGH DOSE OVER 65 FLUZONE HIGH DOSE OVER 66 Unknown Completed [facility] FLUZONE HIGH DOSE OVER 66 FLUZONE HIGH DOSE OVER 66 Unknown Completed [facility] FLUZONE HIGH DOSE OVER 66 FLUZONE HIGH DOSE OVER 65 Unknown Completed [facility] Vital Signs Vital Name Observation Time Observation Value Comments S ource height 2022-12-24 11:40:00 61.5 [in_i] Comm on [facility] weight 2022-12-24 11:40:00 100.5 [lb_av] Co mmon [facility] temperature 2022-12-24 11:40:00 98.1 [degF] Com mon [facility] bmi 2022-12-24 11:40:00 18.68 kg/m2 Comm on [facility] oximetry 2022-12-24 11:40:00 98 % Commo n [facility] respiratory rate 2022-12-24 11:40:00 17 /min [facility] blood pressure systolic 2022-12-24 11:40:00 136 mm[Hg] [facility] blood pressure diastolic 2022-12-24 11:40:00 82 mm[Hg] [facility] Systolic blood pressure 2022-10-27 21:34:00 145 mm[Hg] [facility] Diastolic blood pressure 2022-10-27 21:34:00 75 mm[Hg] [facility] Heart rate 2022-10-27 21:34:00 84 /min [facility] Body height 2022-10-27 21:28:00 154.9 cm [facility] Body weight 2022-10-27 21:28:00 49.442 kg [facility] BMI 2022-10-27 21:28:00 20.60 kg/m2 [facility] Systolic blood pressure 2022-09-30 17:15:00 129 mm[Hg] [facility] Diastolic blood pressure 2022-09-30 17:15:00 85 mm[Hg] [facility] Heart rate 2022-09-30 17:14:00 84 /min [facility] 2022-09-30 17:14:00 154.9 cm [facility] Body weight 2022-09-30 17:14:00 49.442 kg [facility] BMI 2022-09-30 17:14:00 20.60 kg/m2 [facility] Oxygen saturation in Arterial blood by Pulse oximetry 2022-09-30 17:14:00 100 /min [facility] height 2022-09-25 10:20:00 61.5 [in_i] Comm on [facility] weight 2022-09-25 10:20:00 109.6 [lb_av] Co mmon [facility] temperature 2022-09-25 10:20:00 97.8 [degF] Com mon [facility] bmi 2022-09-25 10:20:00 20.37 kg/m2 Comm on [facility] oximetry 2022-09-25 10:20:00 96 % Commo n [facility] respiratory rate 2022-09-25 10:20:00 16 /min Common [facility] blood pressure systolic 2022-09-25 10:20:00 136 mm[Hg] [facility] blood pressure diastolic 2022-09-25 10:20:00 72 mm[Hg] Common [facility] height 2022-06-11 08:00:00 61.5 [in_i] Comm on [facility] weight 2022-06-11 08:00:00 109.6 [lb_av] Co mmon [facility] temperature 2022-06-11 08:00:00 98.6 [degF] Com [facility] bmi 2022-06-11 08:00:00 20.37 kg/m2 Comm on [facility] oximetry 2022-06-11 08:00:00 97 % Commo n [facility] respiratory rate 2022-06-11 08:00:00 16 /min Common [facility] blood pressure systolic 2022-06-11 08:00:00 137 mm[Hg[facility] blood pressure diastolic 2022-06-11 08:00:00 66 mm[Hg] Common [facility] height 2022-02-21 13:00:00 61 [in_i] Commo n [facility] weight 2022-02-21 13:00:00 110.4 [lb_av] Co [facility] temperature 2022-02-21 13:00:00 97.6 [degF] Com [facility] bmi 2022-02-21 13:00:00 20.86 kg/m2 Comm on [facility] oximetry 2022-02-21 13:00:00 98 % Commo n [facility] respiratory rate 2022-02-21 13:00:00 16 /min Common [facility] blood pressure systolic 2022-02-21 13:00:00 132 mm[Hg] [facility] blood pressure diastolic 2022-02-21 13:00:00 72 mm[Hg] [facility] height 2022-02-21 13:00:00 61 [in_i] Commo n [facility] weight 2022-02-21 13:00:00 110.4 [lb_av] Co [facility] temperature 2022-02-21 13:00:00 97.6 [degF] Com [facility] bmi 2022-02-21 13:00:00 20.86 kg/m2 Comm on [facility] oximetry 2022-02-21 13:00:00 98 % Commo n [facility] respiratory rate 2022-02-21 13:00:00 16 /min Common [facility] blood pressure systolic 2022-02-21 13:00:00 132 mm[Hg] [facility] blood pressure diastolic 2022-02-21 13:00:00 72 mm[Hg] [facility] height 2021-11-19 15:40:00 61 [in_i] Commo n [facility] weight 2021-11-19 15:40:00 114.8 [lb_av] Co [facility] temperature 2021-11-19 15:40:00 97.6 [degF] Com [facility] bmi 2021-11-19 15:40:00 21.69 kg/m2 [facility] [facility] oxim[facility] 2021-11-19 15:40:00 98 % Commo n [facility] respiratory rate 2021-11-19 15:40:00 16 /min [facility] blood pressure systolic 2021-11-19 15:40:00 135 mm[Hg] Common Spiri t [facility] blood pressure diastolic 2021-11-19 15:40:00 75 mm[Hg] [facility] height 2021-11-11 13:20:00 61 [in_i] Commo n [facility] weight 2021-11-11 13:20:00 118.2 [lb_av] Co [facility] temperature 2021-11-11 13:20:00 97.3 [degF] Com [facility] bmi 2021-11-11 13:20:00 22.33 kg/m2 Comm on [facility] oximetry 2021-11-11 13:20:00 95 % Commo n [facility] respiratory rate 2021-11-11 13:20:00 16 /min [facility] blood pressure systolic 2021-11-11 13:20:00 128 mm[Hg] [facility] blood pressure diastolic 2021-11-11 13:20:00 76 mm[Hg] [facility] Procedures Procedure Date / Time Performed Performing Clinicia n Source ASSIGNMENT OF BENEFITS 2022-09-30 16:59:40 Docto r Unassigned, [place] [facility] Encounters Start Date/Time End Date/Time Encounter Type Admission Type Attending [facility] Care Department Encounter ID Source 2022-12-30 16:01:00 Outpatient Jillian Payan STLMLC STLMLC [id number] [facility] 2022-09-23 07:59:01 Outpatient Ziyad Payani STLMLC STLMLC [id number] [facility] 2022-02-19 09:06:03 Outpatient Ora, Jillian STLMLC STLMLC [id number] [facility] 2021-11-15 14:28:01 Outpatient Ziyad Payani STLMLC STLMLC [id number] [facility] 2021-11-11 13:26:03 Outpatient Ziyad Payani STLMLC STLMLC [id number] [facility] 2023-09-04 00:00:00 2023-09-04 00:00:00 Outpatient GC_[id number] diyala_S [facility] [id number] [facility] 2023-01-20 00:00:00 2023-01-20 00:00:00 (TEL) STLMLC STLMLC [id number] [facility] 2022-12-24 00:00:00 2022-12-24 00:00:00 OFFICE VISIT ESTAB PT LEVEL 4 STLMLC STLMLC [id number] [facility] 2022-12-16 00:00:00 2022-12-16 00:00:00 (TEL) STLMLC STLMLC [id number] [facility] 2022-10-27 15:30:00 2022-10-27 17:26:37 Outpatient R [facility] [id number] [facility] 2022-10-27 15:30:00 2022-10-27 17:26:37 Office Visit Gurwinder [facility] ABBIE?[facility] [id number] [facility] 2022-10-03 00:00:00 2022-10-03 00:00:00 (TEL) STLMLC STLMLC [id number] [facility] 2022-10-03 00:00:00 2022-10-03 00:00:00 [facility] ABBIE?[facility] [id number] [id number] [facility] 2022-10-03 00:00:00 2022-10-03 00:00:00 Telephone [facility] ABBIE?[facility] [id number] [facility] 2022-10-02 00:00:00 2022-10-02 00:00:00 Telephone Gurwinder [facility] ABBIE?[facility] [id number] [id number] [facility] 2022-09-30 12:00:00 2022-09-30 12:15:00 Manager Media Visit Lab, Ang - Db Gurwinder [facility] [id number] [id number] [id number] [facility] 2022-09-30 11:00:00 2022-09-30 11:55:20 [facility] [id number] 2022-09-30 11:00:00 2022-09-30 11:55:20 Office Visit Gurwinder [facility] [id number] [id number] [id number] [facility] 2022-09-30 00:00:00 2022-09-30 00:00:00 Orders Only Doctor Unassigned, [place] [facility] [id number] [id number] [id number] [facility] 2022-09-25 00:00:00 2022-09-25 00:00:00 OFFICE VISIT ESTAB PT LEVEL 4 STLMLC STLMLC [id number] [facility] 2022-09-04 00:00:00 2022-09-04 00:00:00 (TEL) STLMLC STLMLC [id number] [facility] 2022-06-18 00:00:00 2022-06-18 00:00:00 (TEL) STLMLC STLMLC [id number] [facility] 2022-06-11 00:00:00 2022-06-11 00:00:00 OFFICE VISIT ESTAB PT LEVEL 4 STLMLC STLMLC [id number] [facility] 2022-04-22 00:00:00 2022-04-22 00:00:00 (TEL) STLMLC STLMLC [id number] [facility] 2022-04-10 00:00:00 2022-04-10 00:00:00 (TEL) STLMLC STLMLC [id number] [facility] 2022-02-21 00:00:00 2022-02-21 00:00:00 (TEL) STLMLC STLMLC [id number] [facility] 2022-02-21 00:00:00 2022-02-21 00:00:00 (MCR WELL) Medicare Wellness STLMLC STLMLC [id number] [facility] 2022-02-21 00:00:00 2022-02-21 00:00:00 OFFICE VISIT ESTAB PT LEVEL 4 STLMLC STLMLC [id number] [facility] 2022-01-28 00:00:00 2022-01-28 00:00:00 (TEL) STLMLC STLMLC [id number] [facility] 2022-01-03 00:00:00 2022-01-03 00:00:00 (TEL) STLMLC STLMLC [id number] [facility] 2021-11-19 00:00:00 2021-11-19 00:00:00 OFFICE VISIT EST PT LEVEL 3 STLMLC STLMLC [id number] [facility] 2021-11-11 00:00:00 2021-11-11 00:00:00 OFFICE VISIT NEW PT LEVEL 4 STLMLC STLMLC [id number] [facility]
[2023-09-07 13:17] LABS: Absolute Lymphocytes (CBC) 0.9 K/uL (0.7-4.9); Hematocrit 36.6 % (36.0-45.0); Lymphocytes % 11.1 % (15.3-44.8); MCV 88.2 fL (80-100); MPV 7.9 fL (7.6-11.3); Platelets 194 thou/uL (152-406); RBC Red Blood Cell Count 4.16 M/uL (3.86-4.86)
[2023-09-07 13:39] LABS: Albumin 3.8 g/dL (3.4-5.0); Bilirubin Direct 0.2 mg/dL (0-0.2); Bilirubin Indirect, Calculated 0.3 mg/dL (0.2-0.8); Bilirubin Total 0.5 mg/dL (0.2-1.0); Potassium 3.5 mEq/L (3.5-5.1); Protein, Total 6.8 g/dL (6.4-8.2); Troponin High Sensitivity 5.7 pg/mL (<58.9)
--- NOTE | 2023-09-07 14:51 | RAD REPORT ---
EXAM DESCRIPTION: Lissett Single View09/07/2023 1:09 pm CLINICAL HISTORY: CHEST PAIN COMPARISON: No comparisons TECHNIQUE: Portable AP view of the chest. FINDINGS: The lungs are clear. Hyperlucency, suggestive of COPD. No pneumothorax or effusion. The ca rdiomediastinal contours are unremarkable. IMPRESSION: No acute cardiopulmonary process.
--- NOTE | 2023-09-07 15:48 | ER ---
Nurse's Notes [facility] Name: Christi Bland Age: 73 yrs Sex: Female : 1950 Arrival Date: 09/07/2023 Time: 12:22 Bed 17 Private MD: Diagnosis: Chest pain, unspecified;Gastro-esophageal reflux disease with esophagitis Presentation: 09/07 12:29 Chief complaint: Patient states: WANTS TO BE CHECKED FOR PYLORI BACTERIA 2/2 CRAMPING. ll1 "I GOTTA SEE ALL THE DOCTORS. I BEEN HAVING WEIRD PAINS.". Coronavirus screen: At this time, the client does not indicate any symptoms associated with coronavirus-19. Ebola Screen: No symptoms or risks identified at this time. Initial Sepsis Screen: Does the patient meet any 2 criteria? No. Patient's initial sepsis screen is negative. Does the patient have a suspected source of infection? No. Patient's initial sepsis screen is negative. Risk Assessment: Do you want to hurt yourself or someone else? Patient reports no desire to harm self or others. Onset of symptoms is unknown. 12:29 Method Of Arrival: Ambulatory ll1 12:29 Acuity: LETICIA 3 ll1 Triage Assessment: 12:30 General: Appears in no apparent distress. Behavior is cooperative, appropriate for age, ll1 agitated, anxious. Pain: Complains of pain in abdomen. Respiratory: Reports CONGESTION Onset: The symptoms/episode began/occurred CHRONIC, the patient reports symptoms have resolved. Historical: - Allergies: 12:30 Vicodin; ll1 - PMHx: 12:30 Anxiety; Bipolar disorder; breast cancer; depressive disorder; ll1 - PSHx: 12:30 mastectomy; ll1 - Immunization history:: Adult Immunizations up to date. - Social history:: Smoking status: Patient denies any tobacco usage or history of. Screenin:12 [facility] ED Fall Risk Assessment (Adult) History of falling in the last 3 months, kc6 including since admission No falls in past 3 months (0 pts) Confusion or Disorientation No (0 pts) Intoxicated or Sedated No (0 pts) Impaired Gait No (0 pts) Mobility Assist Device Used No (0 pt) Altered Elimination No (0 pt) Score/Fall Risk Level 0 - 2 = Low Risk. Abuse screen: Denies threats or abuse. Denies injuries from another. Nutritional screening: No deficits noted. Tuberculosis screening: No symptoms or risk factors identified. Assessment: 13:13 General: Appears in no apparent distress. comfortable, well groomed, well developed, kc Behavior is calm, cooperative, appropriate for age. Pain: Complains of pain in chest and abdomen. Neuro: Level of Consciousness is awake, alert, obeys commands, Oriented to person, place, time, situation, Appropriate for age. Cardiovascular: Capillary refill < 3 seconds Rhythm is sinus rhythm. Respiratory: Airway is patent Trachea midline Respiratory effort is even, unlabored, Respiratory pattern is regular, symmetrical, Breath sounds are clear bilaterally. GI: No signs and/or symptoms were reported involving the gastrointestinal system. : No signs and/or symptoms were reported regarding the genitourinary system. EENT: No signs and/or symptoms were reported regarding the EENT system. Derm: No signs and/or symptoms reported regarding the dermatologic system. Skin is intact, is healthy with good turgor, Skin is pink, warm \\T\\ dry. Musculoskeletal: No signs and/or symptoms reported regarding the musculoskeletal system. Circulation, motion, and sensation intact. Capillary refill < 3 seconds, Range of motion: intact in all extremities. 14:04 Reassessment: pt pressed staff assist button in room. pt appears to be on all fours in kc6 the stretcher doubled over in pain. reports nausea and the urge to have a bowel movement. assisted pt with ambulation to the bathroom. Dr. Gonzales notified. 14:24 Reassessment: Patient appears in no apparent distress at this time. No changes from [facility] previously documented assessment. Patient and/or family updated on plan of care and expected duration. Pain level reassessed. Patient is alert, oriented x 3, equal unlabored respirations, skin warm/dry/pink. 15:00 Reassessment: Patient appears in no apparent distress at this time. No changes from [facility] previously documented assessment. Patient and/or family updated on plan of care and expected duration. Pain level reassessed. Patient is alert, oriented x 3, equal unlabored respirations, skin warm/dry/pink. 15:47 Reassessment: Patient appears in no apparent distress at this time. No changes from [facility] previously documented assessment. Patient and/or family updated on plan of care and expected duration. Pain level reassessed. Patient is alert, oriented x 3, equal unlabored respirations, skin warm/dry/pink. 16:47 Reassessment: Patient appears in no apparent distress at this time. No changes from kc6 previously documented assessment. Patient and/or family updated on plan of care and expected duration. Pain level reassessed. Patient is alert, oriented x 3, equal unlabored respirations, skin warm/dry/pink. Vital Signs: 12:29 BP 149 / 82; Pulse 100; Resp 20; Temp 98.9; Pulse Ox 100% ; ll1 14:24 BP 161 / 79; Pulse 93; Resp 16 S; Pulse Ox 99% on R/A; kc6 15:01 BP 154 / 76; Pulse 93; Resp 16 S; Pulse Ox 100% on R/A; kc6 15:47 BP 141 / 85; Pulse 95; Resp 17 S; Pulse Ox 100% on R/A; kc6 ED Course: 12:23 Patient arrived in ED. ts1 12:30 Triage completed. ll1 12:30 Arm band placed on. ll1 12:32 Ger Guan is Attending Physician. ci 12:51 Marilee Monk, RN is Primary Nurse. kc6 13:11 XRAY Chest (1 view) In Process Unspecified. EDMS 13:12 Patient has correct armband on for positive identification. Placed in gown. Bed in low kc6 position. Call light in reach. Side rails up X2. Client placed on continuous cardiac and pulse oximetry monitoring. NIBP monitoring applied. 13:12 Inserted saline lock: 20 gauge in left antecubital area, using aseptic technique. Blood kc6 collected. Patient maintains SpO2 saturation greater than 95% on room air. 17:06 No provider procedures requiring assistance completed. IV discontinued, intact, kc6 bleeding controlled, No redness/swelling at site. Pressure dressing applied. Administered Medications: 13:19 Drug: Famotidine IVP 20 mg IVP once; dilute with 10 mL 0.9% NaCl; give over 2 minutes kc6 Route: IVP; Site: left antecubital; 14:04 Follow up: Response: No adverse reaction; Pain is unchanged, physician notified kc6 13:19 Drug: Alum-Mag Hydroxide-Simeth PO Suspension (200 mg-200 mg-20 mg/5 mL) 30 ml PO once kc6 Route: PO; 14:04 Follow up: Response: No adverse reaction; Pain is unchanged, physician notified kc6 14:20 Drug: Pantoprazole IVP 40 mg IVP once Route: IVP; Site: left antecubital; kc6 15:00 Follow up: Response: No adverse reaction kc6 14:20 Drug: Ondansetron IVP 4 mg IVP once; over 2 minutes Route: IVP; Site: left antecubital; kc6 15:00 Follow up: Response: No adverse reaction; Nausea is decreased; Vomiting decreased kc6 Medication: 17:06 VIS not applicable for this client. kc6 Outcome: 15:48 Discharge ordered by MD. ci 17:06 Discharged to home ambulatory, kc6 17:06 Condition: improved 17:06 Discharge instructions given to patient, Instructed on discharge instructions, follow up and referral plans. medication usage, Demonstrated understanding of instructions, follow-up care, medications, Prescriptions given X 1, 17:06 Patient left the ED. kc6 Signatures: Dispatcher [employer] EDRina Dumont RN RN ll1 Marilee Monk RN RN kc6 Carey Travis PAS PAS ts1 Ger Guan
--- NOTE | 2023-09-07 15:49 | EDPHYS ---
Physician Documentation [facility] Name: Christi Bland Age: 73 yrs Sex: Female : 1950 Arrival Date: 09/07/2023 Time: 12:22 Bed 17 Private MD: ED Physician Ger Guan HPI: 09/07 13:36 This 73 yrs old Female presents to ER via Ambulatory with complaints of ci Shortness Of Breath, Chest Pain. 13:36 Patient is a 73-year-old female with PMH bipolar disorder, anxiety, depression who ci presents to the ED with chief complaint of chest pain, shortness of breath that began yesterday. Patient reports that she was seen in the ED last week for similar complaints and had a workup with no significant finding. Reports current chest pain is midsternal, nonradiating, burning, feels like gas. She took Pepto-Bismol with no improvement. Patient also reports she has had a chronic cough for the past 2 years and was exposed to mold. Patient was observed talking to RN in no distress but upon doctors questioning patient is tearful. Historical: - Allergies: 12:30 Vicodin; ll1 - PMHx: 12:30 Anxiety; Bipolar disorder; breast cancer; depressive disorder; ll1 - PSHx: 12:30 mastectomy; ll1 - Immunization history:: Adult Immunizations up to date. - Social history:: Smoking status: Patient denies any tobacco usage or history of. ROS: 13:36 Constitutional: Negative for fever, chills, and weight loss, ci 13:36 Cardiovascular: Positive for chest pain, 13:36 Respiratory: Positive for shortness of breath, Exam: 13:36 Constitutional: This is a well developed, well nourished patient who is awake, alert, ci and in no acute distress. Head/Face: Normocephalic, atraumatic. Eyes: Pupils equal round and reactive to light, extra-ocular motions intact. Lids and lashes normal. Conjunctiva and sclera are non-icteric and not injected. Cornea within normal limits. Periorbital areas with no swelling, redness, or edema. ENT: Nares patent. No nasal discharge, no septal abnormalities noted. Tympanic membranes are normal and external auditory canals are clear. Oropharynx with no redness, swelling, or masses, exudates, or evidence of obstruction, uvula midline. Mucous membranes moist. Neck: Trachea midline, no thyromegaly or masses palpated, and no cervical lymphadenopathy. Supple, full range of motion without nuchal rigidity, or vertebral point tenderness. No Meningismus. Chest/axilla: Normal chest wall appearance and motion. Nontender with no deformity. No lesions are appreciated. Cardiovascular: Regular rate and rhythm with a normal S1 and S2. No gallops, murmurs, or rubs. Normal PMI, no JVD. No pulse deficits. Respiratory: Lungs have equal breath sounds bilaterally, clear to auscultation and percussion. No rales, rhonchi or wheezes noted. No increased work of breathing, no retractions or nasal flaring. Abdomen/GI: Soft, non-tender, with normal bowel sounds. No distension or tympany. No guarding or rebound. No evidence of tenderness throughout. Back: No spinal tenderness. No costovertebral tenderness. Full range of motion. Skin: Warm, dry with normal turgor. Normal color with no rashes, no lesions, and no evidence of cellulitis. MS/ Extremity: Pulses equal, no cyanosis. Neurovascular intact. Full, normal range of motion. Neuro: Awake and alert, GCS 15, oriented to person, place, time, and situation. Cranial nerves II-XII grossly intact. Motor strength 5/5 in all extremities. Sensory grossly intact. Cerebellar exam normal. Normal gait. Psych: Awake, alert, with orientation to person, place and time. Behavior, mood, and affect are within normal limits. Vital Signs: 12:29 BP 149 / 82; Pulse 100; Resp 20; Temp 98.9; Pulse Ox 100% ; ll1 14:24 BP 161 / 79; Pulse 93; Resp 16 S; Pulse Ox 99% on R/A; kc6 15:01 BP 154 / 76; Pulse 93; Resp 16 S; Pulse Ox 100% on R/A; kc6 15:47 BP 141 / 85; Pulse 95; Resp 17 S; Pulse Ox 100% on R/A; kc6 MDM: 12:48 Patient medically screened. ci 13:36 Differential diagnosis: asthma, Myocardial Infarction pneumonia, Pneumothorax Pulmonary ci Embolism reactive airway disease, Unstable Angina GERD, gastritis. Data reviewed: vital signs, nurses notes, old medical records, lab test result(s), EKG, radiologic studies. 15:43 ED course: Patient is nontoxic-appearing, vital signs stable. Patient describes chest ci pain as burning sensation, suspicion for GERD, gastritis. Patient was given GI cocktail, Protonix. EKG shows normal sinus rhythm with no acute ischemic changes, high-sensitivity troponins negative, chest x-ray unremarkable. She is stable for discharge with close outpatient follow-up.. 09/07 12:50 Order name: Basic Metabolic Panel; Complete Time: 13:53 ci 09/07 12:50 Order name: CBC with Diff; Complete Time: 13:53 ci 09/07 12:50 Order name: LFT's; Complete Time: 13:53 ci 09/07 12:50 Order name: Troponin HS; Complete Time: 13:53 ci 09/07 12:50 Order name: XRAY Chest (1 view); Complete Time: 15:42 ci 09/07 15:42 Interpretation: Per Radiologist's finding(s): IMPRESSION: No acute cardiopulmonary ci process. 09/07 12:50 Order name: EKG; Complete Time: 12:51 ci 09/07 13:54 Interpretation: Sinus rhythm scheming changes HR 81, QTc 462.,. ci 09/07 12:50 Order name: Cardiac monitoring; Complete Time: 13:12 ci 09/07 12:50 Order name: EKG - Nurse/Tech; Complete Time: 13:12 ci 09/07 12:50 Order name: IV Saline Lock; Complete Time: 13:12 ci 09/07 12:50 Order name: Labs collected and sent; Complete Time: 13:12 ci 09/07 12:50 Order name: O2 Per Protocol; Complete Time: 13:12 ci 09/07 12:50 Order name: O2 Sat Monitoring; Complete Time: 13:12 ci Administered Medications: 13:19 Drug: Famotidine IVP 20 mg IVP once; dilute with 10 mL 0.9% NaCl; give over 2 minutes kc6 Route: IVP; Site: left antecubital; 14:04 Follow up: Response: No adverse reaction; Pain is unchanged, physician notified kc6 13:19 Drug: Alum-Mag Hydroxide-Simeth PO Suspension (200 mg-200 mg-20 mg/5 mL) 30 ml PO once kc6 Route: PO; 14:04 Follow up: Response: No adverse reaction; Pain is unchanged, physician notified kc6 14:20 Drug: Pantoprazole IVP 40 mg IVP once Route: IVP; Site: left antecubital; kc6 15:00 Follow up: Response: No adverse reaction kc6 14:20 Drug: Ondansetron IVP 4 mg IVP once; over 2 minutes Route: IVP; Site: left antecubital; kc6 15:00 Follow up: Response: No adverse reaction; Nausea is decreased; Vomiting decreased kc6 Disposition Summary: 09/07/23 15:48 Discharge Ordered Notes: Location: Home ci Condition: Stable ci Diagnosis - Chest pain, unspecified ci - Gastro-esophageal reflux disease with esophagitis ci Followup: ci - With: Private Physician - When: 1 - 2 days - Reason: Recheck today's complaints, Re-evaluation by your physician Discharge Instructions: - Discharge Summary Sheet ci - Nonspecific Chest Pain, Adult ci - Gastroesophageal Reflux Disease, Adult ci Forms: - Medication Reconciliation Form ci - Thank You Letter ci - Antibiotic Education ci - Prescription Opioid Use ci - Patient Portal Instructions ci - Leadership Thank You Letter ci Prescriptions: - Pepcid 20 mg Oral Tablet - take 1 tablet ORAL route once daily; 20 tablet; Refills: 0, Product Selection ci Permitted Signatures: Dispatcher [employer] EDMS Rina Galaviz RN RN ll1 Marilee Monk RN RN kc6 Ger Guan ci Corrections: (The following items were deleted from the chart) 15:44 13:36 Patient is a 73-year-old female with PMH bipolar disorder, anxiety, depression ci who presents to the ED with chief complaint of chest pain, shortness of breath that began yesterday. Patient reports that she was seen in the ED last week for similar complaints and had a workup with no significant finding. Reports current chest pain is midsternal, nonradiating, feels like gas. She took Pepto-Bismol with no improvement. Patient also reports she has had a chronic cough for the past 2 years and was exposed to mold. Patient was observed talking to RN in no distress but upon doctors questioning patient is tearful. ci 15:45 13:36 Differential diagnosis: asthma, Myocardial Infarction pneumonia, Pneumothorax ci Pulmonary Embolism reactive airway disease, Unstable Angina ci 15:46 15:43 Differential diagnosis: ci ci
[2023-09-07 17:28] VITALS: BP 141/85; TEMP 98.9; O2SAT 100
--- NOTE | 2023-09-10 13:31 | EKG ---
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
== END ==
LOC: ER 12:22
DX: K21.00 Gastro-esophageal reflux disease with esophagitis, without bleeding (principal); F31.9 Bipolar disorder, unspecified; Z88.5 Allergy status to narcotic agent
CPT/HCPCS: 85025; 80048; 36415; 80076; 84484; 71045; 96375; 96374; 99285; C9113; J2405; 93005

== ENCOUNTER → 2023-09-09 | Emergency (ER) | payer OTHER ==
[~2023-09-09] MED LIST changes: -FAMOTIDINE 20 MG/2 ML VIAL IV ONE; -MAGNES/ALUMIN/SIMET 30ML UCUP ONE; +MORPHINE 4 MG/ML SYR ONE; +NA CHLORIDE 0.9% 1,000 ML ONE; +NA CHLORIDE 0.9% 100 ML ONE; -PANTOPRAZOLE 40 MG INJ ONE; +PIPERACIL/TAZO 3.375 GM VIAL IV ONE
--- OUTSIDE RECORDS SUMMARY | 2023-09-09 16:28 | XMS REPORT | Continuity of Care Document ---
Author Name Unknown Address [address] [place] [address] [facility] thconnect Address [address] [place] [address] Care Team Providers Care Cardiac Exercise Physiologist Name Role Phone SANTANA PAYAN Primary Care Physician Unavailab Jillian Pike Attending Clinician Unavailable [email or web address] Attending Clinician Unavaila AIDEE Sprague Attending Clinician Unavailable Lab, Ang - Db Attending Clinician Unavailable Doctor Unassigned, [place] Attending Clinician U navailable [email or web address] Admitting Clinician Unavaila elvi Payers Payer Name Policy Type Policy Number Effective Date Expirati on Date Source [facility] (MEDICARE REPLACEMENT/ADVANT AGE - PPO) [id number] [facility] [employer] TRS/ERS [facility] PPO 1 [id number] 2021 00:00:00 [facility] PPO [id number] 2020 00:00:00 Problems Condition Name Condition Details Condition Category Status Onset Date Resolution Date Last Treatment Date Treating Clinician Comments Source Bipolar 1 disorder Bipolar 1 disorder Problem [facility] [place] lesion of lung [place] lesion of lung Problem [facility] [id number] Nicotine dependence , cigarettes , with unspecifie d nicotine-i nduced disorders Problem [facility] Malignant neoplasm of female breast Malignant neoplasm of unspecifie d site of right female breast Problem [facility] Tobacco user Smokes cigarettes Problem [facility] Age-relate d osteoporos is Age-relate d osteoporos is without current pathologic al fracture Problem [facility] Nicotine dependence Nicotine dependence Problem [facility] [id number] Non-season al allergic rhinitis due to pollen Problem [facility] Solitary pulmonary nodule Solitary pulmonary nodule Problem [facility] [id number] Primary insomnia Problem [facility] Adjustment disorder with anxiety Adjustment disorder with anxiety Problem [facility] [id number] Sleep disorder, unspecifie d Problem [facility] Bipolar affective disorder Affective bipolar disorder Problem [facility] [id number] Bipolar 1 disorder, depressed Problem [facility] [id number] PTSD (post-trau matic stress disorder) Problem [facility] Pain co-occurre nt and due to varicose veins of bilateral legs Varicose veins of bilateral lower extremitie s with pain Problem [facility] [id number] Vaginal bleeding Problem [facility] [id number] Mixed stress and urge urinary incontinen ce Problem [facility] Nicotine dependence , uncomplica emelina, unspecifie d nicotine product type Nicotine dependence , uncomplica emelina, unspecifie d nicotine product type Problem [facility] Allergies, Adverse Reactions, Alerts Allergy Name Allergy Type Status Severity Reaction(s) Onset Date Inactive Date Treating Clinician Comments Source HYDROCOD ONE-ACET AMINOPHE N DRUG Active Hallucinates 09-30 00:00: 00 [facility] Hydrocod one-Acet aminophe n Drug Allergy Active Hallucinatio ns 09-30 00:00: 00 [facility] NO KNOWN ALLERGIE S Drug Class Active [facility] Social History Social Habit Start Date Stop Date Quantity Comments Source History of Tobacco Use Current Smoker [facility] Exposure to SARS-CoV-2 (event) 2022-10-17 00:00:00 2022-10-27 15:03:00 Not sure [facility] Alcohol intake 2022-10-27 00:00:00 2022-10-27 00:00:00 Lifetime non-drinker (finding) [facility] Tobacco use and exposure 2022-10-27 00:00:00 2022-10-27 00:00:00 Smokeless tobacco non-user [facility] Sex Assigned At 1950 00:00:00 1950 00:00:00 [facility] Smoking Status Start Date Stop Date Source Tobacco smoking consumption unknown [facility] Current Smoker 2023-02-04 00:00:00 [facility] Never smoked tobacco [facility] Medications Ordered Medication Name Filled Medication Name Start Date Stop Date Current Medication? Ordering Clinician Indication Dosage Frequency Signature (SIG) Comments Components Source clonazePAM 0.5 mg tablet 2021-09 00:00: 00 Yes .5mg Take 0.5 mg by mouth as needed. [facility] letrozole 2.5 mg tablet 2021-09 00:00: 00 Yes 2.5mg Take 2.5 mg by mouth daily [facility] clonazePAM 0.5 mg tablet 2021-09 00:00: 00 Yes .5mg Take 0.5 mg by mouth as needed. [facility] letrozole 2.5 mg tablet 2021-09 00:00: 00 Yes 2.5mg Take 2.5 mg by mouth daily [facility] clonazePAM 0.5 mg tablet 2021-09 00:00: 00 Yes .5mg Take 0.5 mg by mouth as needed. [facility] letrozole 2.5 mg tablet 2021-09 00:00: 00 Yes 2.5mg Take 2.5 mg by mouth daily [facility] clonazePAM 0.5 mg tablet 2021-09 00:00: 00 Yes .5mg Take 0.5 mg by mouth as needed. [facility] letrozole 2.5 mg tablet 2021-09 00:00: 00 Yes 2.5mg Take 2.5 mg by mouth daily [facility] clonazePAM 0.5 mg tablet 2021-09 00:00: 00 Yes .5mg Take 0.5 mg by mouth as needed. [facility].5 [facility] tablet 2021-09 00:00: 00 Yes 2.5mg Take 2.5 mg by mouth daily [facility] clonazePAM 0.5 mg tablet 2021-09 00:00: 00 Yes .5mg Take 0.5 mg by mouth as needed. [facility] letrozole 2.5 mg tablet 2021-09 00:00: 00 Yes 2.5mg Take 2.5 mg by mouth daily [facility] clonazePAM 0.5 mg tablet 2021-09 00:00: 00 Yes .5mg Take 0.5 mg by mouth as needed. [facility] letrozole 2.5 mg tablet 2021-09 00:00: 00 Yes 2.5mg Take 2.5 mg by mouth daily [facility] clonazePAM 0.5 mg tablet 2021-09 00:00: 00 Yes .5mg Take 0.5 mg by mouth as needed. [facility] letrozole 2.5 mg tablet 2021-09 00:00: 00 Yes 2.5mg Take 2.5 mg by mouth daily [facility] busPIRone 5 mg tablet 2021-09 00:00: 00 Yes 5mg Take 5 mg by mouth in the morning and 5 mg at noon and 5 mg in the evening. [facility] DULoxetine 60 mg capsule 2021-09 00:00: 00 Yes 60mg Take 60 mg by mouth in the morning. [facility] busPIRone 5 mg tablet 2021-09 00:00: 00 Yes 5mg Take 5 mg by mouth in the morning and 5 mg at noon and 5 mg in the evening. [facility] DULoxetine 60 mg capsule 2021-09 00:00: 00 Yes 60mg Take 60 mg by mouth in the morning. [facility] busPIRone 5 mg tablet 2021-09 00:00: 00 Yes 5mg Take 5 mg by mouth in the morning and 5 mg at noon and 5 mg in the evening. [facility] DULoxetine 60 mg capsule 2021-09 00:00: 00 Yes 60mg Take 60 mg by mouth in the morning. [facility] busPIRone 5 mg tablet 2021-09 00:00: 00 Yes 5mg Take 5 mg by mouth in the morning and 5 mg at noon and 5 mg in the evening. [facility] DULoxetine 60 mg capsule 2021-09 00:00: 00 Yes 60mg Take 60 mg by mouth in the morning. [facility] busPIRone 5 mg tablet 2021-09 00:00: 00 Yes 5mg Take 5 mg by mouth in the morning and 5 mg at noon and 5 mg in the evening. [facility] DULoxetine 60 mg capsule 2021-09 00:00: 00 Yes 60mg Take 60 mg by mouth in the morning. [facility] busPIRone 5 mg tablet 2021-09 00:00: 00 Yes 5mg Take 5 mg by mouth in the morning and 5 mg at noon and 5 mg in the evening. [facility] DULoxetine 60 mg capsule 2021-09 00:00: 00 Yes 60mg Take 60 mg by mouth in the morning. [facility] busPIRone 5 mg tablet 2021-09 00:00: 00 Yes 5mg Take 5 mg by mouth in the morning and 5 mg at noon and 5 mg in the evening. [facility] DULoxetine 60 mg capsule 2021-09 00:00: 00 Yes 60mg Take 60 mg by mouth in the morning. [facility] busPIRone 5 mg tablet 2021-09 00:00: 00 Yes 5mg Take 5 mg by mouth in the morning and 5 mg at noon and 5 mg in the evening. [facility] DULoxetine 60 mg capsule 2021-09- 00:00: 00 Yes 60mg Take 60 mg by mouth in the morning. [facility] DULoxetine 30 mg capsule 2021-09 00:00: 00 Yes 30mg Take 30 mg by mouth in the morning. [facility] DULoxetine 30 mg capsule 2021-09 00:00: 00 Yes 30mg Take 30 mg by mouth in the morning. [facility] DULoxetine 30 mg capsule 2021-09 00:00: 00 Yes 30mg Take 30 mg by mouth in the morning. [facility] DULoxetine 30 mg capsule 2021-09 00:00: 00 Yes 30mg Take 30 mg by mouth in the morning. [facility] DULoxetine 30 mg capsule 2021-09 00:00: 00 Yes 30mg Take 30 mg by mouth in the morning. [facility] DULoxetine 30 mg capsule 2021-09 00:00: 00 Yes 30mg Take 30 mg by mouth in the morning. [facility] DULoxetine 30 mg capsule 2021-09 00:00: 00 Yes 30mg Take 30 mg by mouth in the morning. [facility] DULoxetine 30 mg capsule 2021-09 00:00: 00 Yes 30mg Take 30 mg by mouth in the morning. [facility] doxepin 10 mg capsule 2021-09 00:00: 00 Yes 10mg Take 10 mg by mouth at bedtime. [facility] doxepin 10 mg capsule 2021-09 00:00: 00 Yes 10mg Take 10 mg by mouth at bedtime. [facility] doxepin 10 mg capsule 2021-09 00:00: 00 Yes 10mg Take 10 mg by mouth at bedtime. [facility] doxepin 10 mg capsule 2021-09 00:00: 00 Yes 10mg Take 10 mg by mouth at bedtime. [facility] doxepin 10 mg capsule 2021-09 00:00: 00 Yes 10mg Take 10 mg by mouth at bedtime. [facility] doxepin 10 mg capsule 2021-09 00:00: 00 Yes 10mg Take 10 mg by mouth at bedtime. [facility] doxepin 10 mg capsule 2021-09 00:00: 00 Yes 10mg Take 10 mg by mouth at bedtime. [facility] doxepin 10 mg capsule 2021-09 00:00: 00 Yes 10mg Take 10 mg by mouth at bedtime. [facility] Doxylamine Succinate (Sleep) 25 MG Doxylamine [...] 11-11 00:00: 00 No 30mg [facility] Kenalog (Triamcinol one) Kenalog (Triamcinol one) - 00:00: 00 No 40mg [facility] Toradol (Ketorolac) Toradol (Ketorolac) 11-11 00:00: 00 No 30mg [facility] Kenalog (Triamcinol one) Kenalog (Triamcinol one) 11-11 00:00: 00 No 40mg [facility] Toradol (Ketorolac) Toradol (Ketorolac) 11-11 00:00: 00 No 30mg [facility] Kenalog (Triamcinol one) Kenalog (Triamcinol one) 11-11 00:00: 00 No 40mg [facility] Toradol (Ketorolac) Toradol (Ketorolac) 11-11 00:00: 00 No 30mg [facility] Kenalog (Triamcinol one) Kenalog (Triamcinol one) 2- 00:00: 00 No 40mg [facility] Toradol (Ketorolac) Toradol (Ketorolac) 11-11 00:00: 00 No 30mg [facility] Kenalog (Triamcinol one) Kenalog (Triamcinol one) 0 11-11 00:00: 00 No 40mg [facility] Toradol (Ketorolac) Toradol (Ketorolac) 0 11-11 00:00: 00 No 30mg [facility] Kenalog (Triamcinol one) Kenalog (Triamcinol one) 0 11-11 00:00: 00 No 40mg [facility] Toradol (Ketorolac) Toradol (Ketorolac) 0 11-11 00:00: 00 No 30mg [facility] Kenalog (Triamcinol one) Kenalog (Triamcinol one) 0 11-11 00:00: 00 No 40mg [facility] Toradol (Ketorolac) Toradol (Ketorolac) 0 11-11 00:00: 00 No 30mg [facility] Kenalog (Triamcinol one) Kenalog (Triamcinol one) 0 11-11 00:00: 00 No 40mg [facility] Toradol (Ketorolac) Toradol (Ketorolac) 0 11-11 00:00: 00 No 30mg [facility] Kenalog (Triamcinol one) Kenalog (Triamcinol one) 0 11-11 00:00: 00 No 40mg [facility] Toradol (Ketorolac) Toradol (Ketorolac) 0 11-11 00:00: 00 No 30mg [facility] Kenalog (Triamcinol one) Kenalog (Triamcinol one) 0 11-11 00:00: 00 No 40mg [facility] Toradol (Ketorolac) Toradol (Ketorolac) 0 11-11 00:00: 00 No 30mg [facility] Kenalog (Triamcinol one) Kenalog (Triamcinol one) 0 11-11 00:00: 00 No 40mg [facility] Toradol (Ketorolac) Toradol (Ketorolac) 0 11-11 00:00: 00 No 30mg [facility] Kenalog (Triamcinol one) Kenalog (Triamcinol one) 0 11-11 00:00: 00 No 40mg [facility] Toradol (Ketorolac) Toradol (Ketorolac) 0 11-11 00:00: 00 No 30mg [facility] Kenalog (Triamcinol one) Kenalog (Triamcinol one) 0 11-11 00:00: 00 No 40mg [facility] Toradol (Ketorolac) Toradol (Ketorolac) 0 11-11 00:00: 00 No 30mg [facility] Kenalog (Triamcinol one) Kenalog (Triamcinol one) 0 11-11 00:00: 00 No 40mg [facility] Toradol (Ketorolac) Toradol (Ketorolac) 0 11-11 00:00: 00 No 30mg [facility] Kenalog (Triamcinol one) Kenalog (Triamcinol one) 0 11-11 00:00: 00 No 40mg [facility] Toradol (Ketorolac) Toradol (Ketorolac) 0 11-11 00:00: 00 No 30mg [facility] Kenalog (Triamcinol one) Kenalog (Triamcinol one) 0 11-11 00:00: 00 No 40mg [facility] Toradol (Ketorolac) Toradol (Ketorolac) 0 11-11 00:00: 00 No 30mg [facility] Kenalog (Triamcinol one) Kenalog (Triamcinol one) 0 11-11 00:00: 00 No 40mg [facility] Toradol (Ketorolac) Toradol (Ketorolac) 2021-0 11-11 00:00: 00 No 30mg [facility] Kenalog (Triamcinol one) Kenalog (Triamcinol one) 2021-0 2 00:00: 00 No 40mg [facility] Toradol (Ketorolac) Toradol (Ketorolac) 2021-0 11-11 00:00: 00 No 30mg [facility] Kenalog (Triamcinol one) Kenalog (Triamcinol one) 2021-0 11-11 00:00: 00 No 40mg [facility] Oxybutynin Chloride 5 MG Oxybutynin Chloride 5 [...] HIGH DOSE OVER 65 2021-09-13 13:44:00 Completed [facility] FLUZONE HIGH DOSE OVER 65 FLUZONE HIGH DOSE OVER 65 2021-09-13 13:44:00 Completed [facility] FLUZONE HIGH DOSE OVER 65 FLUZONE HIGH DOSE OVER 65 2021-09-13 13:44:00 Completed [facility] FLUZONE HIGH DOSE OVER 65 FLUZONE HIGH DOSE OVER 65 2021-09-13 13:44:00 Completed [facility] FLUZONE HIGH DOSE OVER 65 FLUZONE HIGH DOSE OVER 65 2021-09-13 13:44:00 Completed [facility] FLUZONE HIGH DOSE OVER 65 FLUZONE HIGH DOSE OVER 65 2021-09-13 13:44:00 Completed [facility] FLUZONE HIGH DOSE OVER 66 FLUZONE HIGH DOSE OVER 65 2021-09-13 13:44:00 Completed [facility] FLUZONE HIGH DOSE OVER 66 FLUZONE HIGH DOSE OVER 65 2021-09-13 13:44:00 Completed [facility] FLUZONE HIGH DOSE OVER 65 FLUZONE HIGH DOSE OVER 65 2021-09-13 13:44:00 Completed [facility] FLUZONE HIGH DOSE OVER 66 FLUZONE HIGH DOSE OVER 65 2021-09-13 13:44:00 Completed [facility] FLUZONE HIGH DOSE OVER 65 FLUZONE HIGH DOSE OVER 65 2021-09-13 13:44:00 Completed [facility] FLUZONE HIGH DOSE OVER 65 FLUZONE HIGH DOSE OVER 65 2021-09-13 13:44:00 Completed [facility] FLUZONE HIGH DOSE OVER 66 FLUZONE HIGH DOSE OVER 65 2021-09-13 13:44:00 Completed [facility] FLUZONE HIGH DOSE OVER 66 FLUZONE HIGH DOSE OVER 65 2021-09-13 13:44:00 Completed [facility] FLUZONE HIGH DOSE OVER 66 FLUZONE HIGH DOSE OVER 65 2021-09-13 13:44:00 Completed [facility] SARS-COV-2 COVID-19 PFIZER VACCINE 2020-12-22 00:00:00 Completed [facility] SARS-COV-2 COVID-19 PFIZER VACCINE 2020-12-22 00:00:00 Completed [facility] SARS-COV-2 COVID-19 PFIZER VACCINE 2020-12-22 00:00:00 Completed [facility] SARS-COV-2 COVID-19 PFIZER VACCINE 2020-12-22 00:00:00 Completed [facility] SARS-COV-2 COVID-19 PFIZER VACCINE 2020-12-22 00:00:00 Completed [facility] SARS-COV-2 COVID-19 PFIZER VACCINE 2020-12-22 00:00:00 Completed [facility] SARS-COV-2 COVID-19 PFIZER VACCINE 2020-12-22 00:00:00 Completed [facility] SARS-COV-2 COVID-19 PFIZER VACCINE 2020-12-22 00:00:00 Completed [facility] SARS-COV-2 COVID-19 PFIZER VACCINE 2020-12-22 00:00:00 Completed [facility] SARS-COV-2 COVID-19 PFIZER VACCINE 2020-12-01 00:00:00 Completed [facility] SARS-COV-2 COVID-19 PFIZER VACCINE 2020-12-01 00:00:00 Completed [facility] SARS-COV-2 COVID-19 PFIZER VACCINE 2020-12-01 00:00:00 Completed [facility] SARS-COV-2 COVID-19 PFIZER VACCINE 2020-12-01 00:00:00 Completed [facility] SARS-COV-2 COVID-19 PFIZER VACCINE 2020-12-01 00:00:00 Completed [facility] SARS-COV-2 COVID-19 PFIZER VACCINE 2020-12-01 00:00:00 Completed [facility] SARS-COV-2 COVID-19 PFIZER VACCINE 2020-12-01 00:00:00 Completed [facility] SARS-COV-2 COVID-19 PFIZER VACCINE 2020-12-01 00:00:00 Completed [facility] SARS-COV-2 COVID-19 PFIZER VACCINE 2020-12-01 00:00:00 Completed [facility] FLUZONE HIGH DOSE OVER 65 FLUZONE HIGH DOSE OVER 65 Unknown Completed [facility] FLUZONE HIGH DOSE OVER 65 FLUZONE HIGH DOSE OVER 65 Unknown Completed [facility] FLUZONE HIGH DOSE OVER 65 FLUZONE HIGH DOSE OVER 65 Unknown Completed [facility] FLUZONE HIGH DOSE OVER 66 FLUZONE HIGH DOSE OVER 65 Unknown Completed [facility] Vital Signs Vital Name Observation Time Observation Value Comments S ource height 2022-12-24 11:40:00 61.5 [in_i] Comm on [facility] weight 2022-12-24 11:40:00 100.5 [lb_av] Co mmon [facility] temperature 2022-12-24 11:40:00 98.1 [degF] Com mon [facility] bmi 2022-12-24 11:40:00 18.68 kg/m2 Comm on [facility] oximetry 2022-12-24 11:40:00 98 % Commo n [facility] respiratory rate 2022-12-24 11:40:00 17 /min [facility] blood pressure systolic 2022-12-24 11:40:00 136 mm[Hg] [facility] blood pressure diastolic 2022-12-24 11:40:00 82 mm[Hg] [facility] Systolic blood pressure 2022-10-27 21:34:00 145 mm[Hg] [facility] Diastolic blood pressure 2022-10-27 21:34:00 75 mm[Hg] [facility] Heart rate 2022-10-27 21:34:00 84 /min [facility] Body height 2022-10-27 21:28:00 154.9 cm [facility] Body weight 2022-10-27 21:28:00 49.442 kg [facility] BMI 2022-10-27 21:28:00 20.60 kg/m2 [facility] Systolic blood pressure 2022-09-30 17:15:00 129 mm[Hg] [facility] Diastolic blood pressure 2022-09-30 17:15:00 85 mm[Hg] [facility] Heart rate 2022-09-30 17:14:00 84 /min [facility] 2022-09-30 17:14:00 154.9 cm [facility] Body weight 2022-09-30 17:14:00 49.442 kg [facility] BMI 2022-09-30 17:14:00 20.60 kg/m2 [facility] Oxygen saturation in Arterial blood by Pulse oximetry 2022-09-30 17:14:00 100 /min [facility] height 2022-09-25 10:20:00 61.5 [in_i] Comm on [facility] weight 2022-09-25 10:20:00 109.6 [lb_av] Co mmon [facility] temperature 2022-09-25 10:20:00 97.8 [degF] Com mon [facility] bmi 2022-09-25 10:20:00 20.37 kg/m2 Comm on [facility] oximetry 2022-09-25 10:20:00 96 % Commo n [facility] respiratory rate 2022-09-25 10:20:00 16 /min [facility] blood pressure systolic 2022-09-25 10:20:00 136 mm[Hg] [facility] blood pressure diastolic 2022-09-25 10:20:00 72 mm[Hg] Common [facility] height 2022-06-11 08:00:00 61.5 [in_i] Comm on [facility] weight 2022-06-11 08:00:00 109.6 [lb_av] Co mmon [facility] temperature 2022-06-11 08:00:00 98.6 [degF] Com [facility] bmi 2022-06-11 08:00:00 20.37 kg/m2 Comm on [facility] oximetry 2022-06-11 08:00:00 97 % Commo n [facility] respiratory rate 2022-06-11 08:00:00 16 /min [facility] blood pressure systolic 2022-06-11 08:00:00 137 mm[Hg] [facility] blood pressure diastolic 2022-06-11 08:00:00 66 mm[Hg] Common [facility] height 2022-02-21 13:00:00 61 [in_i] Commo n [facility] weight 2022-02-21 13:00:00 110.4 [lb_av] Co [facility] temperature 2022-02-21 13:00:00 97.6 [degF] Com [facility] bmi 2022-02-21 13:00:00 20.86 kg/m2 Comm on [facility] oximetry 2022-02-21 13:00:00 98 % Commo n [facility] respiratory rate 2022-02-21 13:00:00 16 /min [facility] blood pressure systolic 2022-02-21 13:00:00 132 mm[Hg] [facility] blood pressure diastolic 2022-02-21 13:00:00 72 mm[Hg] [facility] height 2022-02-21 13:00:00 61 [in_i] Commo n [facility] weight 2022-02-21 13:00:00 110.4 [lb_av] Co [facility] temperature 2022-02-21 13:00:00 97.6 [degF] Com [facility] bmi 2022-02-21 13:00:00 20.86 kg/m2 Comm on [facility] oximetry 2022-02-21 13:00:00 98 % Commo n [facility] respiratory rate 2022-02-21 13:00:00 16 /min Common [facility] blood pressure systolic 2022-02-21 13:00:00 132 mm[Hg] [facility] blood pressure diastolic 2022-02-21 13:00:00 72 mm[Hg] [facility] height 2021-11-19 15:40:00 61 [in_i] Commo n [facility] weight 2021-11-19 15:40:00 114.8 [lb_av] Co [facility] temperature 2021-11-19 15:40:00 97.6 [degF] Com [facility] bmi 2021-11-19 15:40:00 21.69 kg/m2 Comm on [facility] oximetry 2021-11-19 15:40:00 98 % Commo n [facility] respiratory rate 2021-11-19 15:40:00 16 /min [facility] blood pressure systolic 2021-11-19 15:40:00 135 mm[Hg] [facility] blood pressure diastolic 2021-11-19 15:40:00 75 mm[Hg] [facility] height 2021-11-11 13:20:00 61 [in_i] Commo n [facility] weight 2021-11-11 13:20:00 118.2 [lb_av] Co [facility] temperature 2021-11-11 13:20:00 97.3 [degF] Com [facility] bmi 2021-11-11 13:20:00 22.33 kg/m2 Comm on [facility] oximetry 2021-11-11 13:20:00 95 % Commo n [facility] respiratory rate 2021-11-11 13:20:00 16 /min [facility] blood pressure systolic 2021-11-11 13:20:00 128 mm[Hg] [facility] blood pressure diastolic 2021-11-11 13:20:00 76 mm[Hg] [facility] Procedures Procedure Date / Time Performed Performing Clinicia n Source ASSIGNMENT OF BENEFITS 2022-09-30 16:59:40 Docto r Unassigned, [place] [facility] Encounters Start Date/Time End Date/Time Encounter Type Admission Type Attending [facility] Care Facility Care Department Encounter ID Source 2022-12-30 16:01:00 [id number] 2022-09-23 07:59:01 [facility] [id number] [facility] 2022-02-19 09:06:03 Outpatient Jillian [facility] [id number] [facility] 2021-11-15 14:28:01 Outpatient Jillian Payan [facility] [id number] [facility] 2021-11-11 13:26:03 Outpatient Jillian Payan [facility] [id number] [facility] 2023-09-08 00:00:00 2023-09-08 00:00:00 Outpatient GC_GCBZW_Ka diyala_S PRIV PRIV [id number] [facility] 2023-09-04 00:00:00 2023-09-04 00:00:00 Outpatient GC_GCBZW_Ka diyala_S PRIV PRIV [id number] [facility] 2023-01-20 00:00:00 2023-01-20 00:00:00 (TEL) STLMLC STLMLC [id number] [facility] 2022-12-24 00:00:00 2022-12-24 00:00:00 OFFICE VISIT ESTAB PT LEVEL 4 STLMLC STLMLC [id number] [facility] 2022-12-16 00:00:00 2022-12-16 00:00:00 (TEL) STLMLC STLMLC [id number] [facility] 2022-10-27 15:30:00 2022-10-27 17:26:37 Outpatient R [facility] [id number] [facility] 2022-10-27 15:30:00 2022-10-27 17:26:37 Office Visit Sam [facility] ABBIE?[facility] [id number] 350.1.13.10 [id number] [id number] [facility] 2022-10-03 00:00:00 2022-10-03 00:00:00 (TEL) STLMLC STLMLC [id number] [facility] 2022-10-03 00:00:00 2022-10-03 00:00:00 Telephone Alexy VargasCounts include 234 beds at the [facility] ABBIE?[facility] MEDICAL OFFICE BUILDING 1.2.840.114 350.1.13.10 4.2.7.2.686 [id number] [facility] 2022-10-03 00:00:00 2022-10-03 00:00:00 [facility] [id number] 350.1.13.10 [id number] [id number] [facility] 2022-10-02 00:00:00 2022-10-02 00:00:00 Telephone Sam [facility] ABBIE?[facility] MED[facility] OFF[facility] BU[facility] [id number] 350.1.13.10 4.2.7.2.686 [id number] [facility] 2022-09-30 12:00:00 2022-09-30 12:15:00 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, Ousmane - Aleksandar Sam [facility] OFF[facility]ILD[facility] 1.2.840.114 350.1.13.10 4.2.7.2.686 [id number] [facility] 2022-09-30 11:00:00 2022-09-30 11:55:20 [facility] [id number] [facility] 2022-09-30 11:00:00 2022-09-30 11:55:20 Office Visit Sam [facility] 1..840.114 350.1.13.10 4.2.7.2.686 [id number] [facility] 2022-09-30 00:00:00 2022-09-30 00:00:00 Orders Only Doctor Unassigned, [place] [facility] [id number] 350.1.13.10 4.2.7.2.686 [id number] [facility] 2022-09-25 00:00:00 2022-09-25 00:00:00 OFFICE VISIT ESTAB PT LEVEL 4 STLMLC STLMLC [id number] [facility] 2022-09-04 00:00:00 2022-09-04 00:00:00 (TEL) STLMLC STLMLC [id number] [facility] 2022-06-18 00:00:00 2022-06-18 00:00:00 (TEL) STLMLC STLMLC [id number] [facility] 2022-06-11 00:00:00 2022-06-11 00:00:00 OFFICE VISIT ESTAB PT LEVEL 4 STLMLC STLMLC [id number] [facility] 2022-04-22 00:00:00 2022-04-22 00:00:00 (TEL) STLMLC STLMLC [id number] [facility] 2022-04-10 00:00:00 2022-04-10 00:00:00 (TEL) STLMLC STLMLC [id number] [facility] 2022-02-21 00:00:00 2022-02-21 00:00:00 (TEL) STLMLC STLMLC [id number] [facility] 2022-02-21 00:00:00 2022-02-21 00:00:00 (MCR WELL) Medicare Wellness STLMLC STLMLC [id number] [facility] 2022-02-21 00:00:00 2022-02-21 00:00:00 OFFICE VISIT ESTAB PT LEVEL 4 STLMLC STLMLC [id number] [facility] 2022-01-28 00:00:00 2022-01-28 00:00:00 (TEL) STLMLC STLMLC [id number] [facility] 2022-01-03 00:00:00 2022-01-03 00:00:00 (TEL) STLMLC STLMLC [id number] [facility] 2021-11-19 00:00:00 2021-11-19 00:00:00 OFFICE VISIT EST PT LEVEL 3 STLMLC STLMLC [id number] [facility] 2021-11-11 00:00:00 2021-11-11 00:00:00 OFFICE VISIT NEW PT LEVEL 4 STLMLC STLMLC [id number] [facility]
[2023-09-09 17:18] LABS: Hematocrit 38.8 % (36.0-45.0); Lymphocytes % 9.2 % (15.3-44.8); MCV 88.5 fL (80-100); MPV 7.9 fL (7.6-11.3); Platelets 211 thou/uL (152-406); RBC Red Blood Cell Count 4.38 M/uL (3.86-4.86)
[2023-09-09 17:33] LABS: Specific Gravity 1.013 (1.005-1.030); Urine Bacteria None Seen /HPF (<20); Urine Bilirubin NEGATIVE (Negative); Urine Blood Negative (Negative); Urine Clarity Clear (Clear); Urine Color Yellow (Yellow); Urine Glucose NEGATIVE (Negative); Urine Mucus Slight /HPF (None Seen); Urine Protein 1+ (Negative); Urine Urobilinogen Normal (Normal)
[2023-09-09 17:38] LABS: Albumin 3.7 g/dL (3.4-5.0); Bilirubin Total 0.6 mg/dL (0.2-1.0); Potassium 3.8 mEq/L (3.5-5.1); Protein, Total 7.7 g/dL (6.4-8.2)
--- NOTE | 2023-09-09 18:44 | RAD REPORT ---
EXAM DESCRIPTION: US - Abdomen Exam Limited - 09/09/2023 6:34 pm CLINICAL HISTORY: ABD PAIN COMPARISON: Abdomen Pelvis W Contrast dated 04/16/2023; Cholangiogram dated 04/13/2023 FINDINGS: The gallbladder demonstrates distention, with sludge and stones present. No pericholecysti c fluid or gallbladder wall thickening. The common bile duct is mildly prominent measuring 7 mm. The liver demonstrates no findings of intrahepatic biliary dilatation. IMPRESSION: Gallbladder distension containing sludge and stones. Mildly prominent common duct measuring 7 mm.
--- NOTE | 2023-09-09 19:06 | RAD REPORT ---
EXAM DESCRIPTION: CTAbdomen Pelvis W Contrast - 09/09/2023 6:57 pm CLINICAL HISTORY: Abdominal pain. ABD PAIN COMPARISON: Abdomen Pelvis W Contrast dated 04/16/2023; Abdomen Pelvis W Contrast dated 02/25/2023 TECHNIQUE: Biphasic CT imaging of the abdomen and pelvis was performed with 100 ml non-ionic IV cont rast. All CT scans are performed using dose optimization technique as appropriate and may include automated exposure control or mA/KV adjustment according to patient size. FINDINGS: The lung bases are clear. The liver, spleen, pancreas, adrenal glands and kidneys are within normal limits. Gallbladder is distended and appears to contain stones in shows mild pericholecystic fluid. Common bi le duct appears mildly dilated with the common duct stent in place. No bowel obstruction, free air, free fluid or abscess. Significant stool is present throughout the co alesha. The appendix is normal. No evidence of significant lymphadenopathy. Mild lumbar degenerative changes. IMPRESSION: Distended gallbladder appearing to contain stones. Mild pericholecystic fluid is also pr esent. The combination of findings suggests acute cholecystitis. Follow-up HIDA scan may be useful. Common bile duct appears mildly dilated with a common duct stent in place.
--- NOTE | 2023-09-09 19:29 | EDPHYS ---
Physician Documentation [facility] Name: Christi Bland Age: 73 yrs Sex: Female : 1950 Arrival Date: 09/09/2023 Time: 16:23 Bed 18 Private MD: ED Physician Dayron Sevilla HPI: 09/09 16:54 This 73 yrs old Female presents to ER via Wheelchair with complaints of rn Abdominal Pain. 16:54 The patient presents with abdominal pain in the periumbilical area. Onset: The rn symptoms/episode began/occurred 2 day(s) ago. The symptoms do not radiate. Associated signs and symptoms: Pertinent positives: diarrhea, Pertinent negatives: blood in stools, fever. The symptoms are described as achy, crampy. Modifying factors: The symptoms are alleviated by nothing, the symptoms are aggravated by pressure, touching the area. Severity of pain: At its worst the pain was moderate in the emergency department the pain is unchanged. The patient has not experienced similar symptoms in the past. The patient has not recently seen a physician. Historical: - Allergies: 16:37 Vicodin; hb - Home Meds: 16:37 BuSpar Oral [Active]; Cymbalta 60 mg Oral capsule [Active]; Hydrocodone-Acetaminophen hb Oral [Active]; - PMHx: 16:37 Anxiety; Bipolar disorder; breast cancer; depressive disorder; hb - PSHx: 16:37 mastectomy; hb - Immunization history:: Adult Immunizations up to date. - Social history:: Smoking status: Patient denies any tobacco usage or history of. - Family history:: not pertinent. - Hospitalizations: : No recent hospitalization is reported. ROS: 16:54 Constitutional: Negative for fever, chills, and weight loss, Cardiovascular: Negative rn for chest pain, palpitations, and edema, Respiratory: Negative for shortness of breath, cough, wheezing, and pleuritic chest pain, Abdomen/GI: Positive for abdominal pain and diarrhea Back: Negative for injury and pain, MS/Extremity: Negative for injury and deformity, Skin: Negative for injury, rash, and discoloration, Neuro: Negative for headache, weakness, numbness, tingling, and seizure, Exam: 16:54 Constitutional: This is a well developed, well nourished patient who is awake, alert, rn and in no acute distress. Ambulatory to triage without difficulty or assistance Cardiovascular: Tachycardic, regular. No pulse deficits. Abdomen/GI: Soft, mid abdominal tenderness without rebound. Skin: Warm, dry MS/ Extremity: Pulses equal, no cyanosis. Neuro: Awake and alert, GCS 15 Vital Signs: 16:35 BP 138 / 94; Pulse 112; Resp 17; Temp 99.8(TE); Pulse Ox 98% on R/A; Weight 40.37 kg; hb Height 5 ft. 1 in. ; Pain 10/10; 22:00 BP 151 / 92; Pulse 109; Resp 18; Pulse Ox 99% ; vc1 16:35 Body Mass Index 16.82 (40.37 kg, 154.94 cm) hb 16:35 Pain Scale: Adult hb MDM: 16:29 Patient medically screened. rn 17:49 Data reviewed: vital signs. Transition of care: Care assumed from Alton Rodgers MD. ED ec2 course: Patient signed out to me by previous physician, in brief patient arrives today due to concern for upper abdominal pain. Vital signs notable for tachycardia. Plan is to follow-up patient's CT imaging and ultrasonography. Ultimately if workup is unremarkable is appropriate for discharge home.. 17:51 ED course: CBC is unremarkable. Metabolic profile with appropriate electrolytes, good ec2 renal function, urine is noninfectious appearing, lipase within normal ranges. Pending CT imaging and ultrasound. . 18:49 ED course: Ultrasound shows distention with sludge and stones, no associated ec2 pericholecystic fluid, does have prominent CBD at 7 mm, consistent with patient's age. . 19:18 ED course: CT imaging shows distended gallbladder along with pericholecystic fluid ec2 noted. Will add on antibiotics, consult surgery as well and admit. . 19:27 ED course: Discussed the case with on-call surgery, Dr. Hunt, given the patient's ec2 CBD stent, recommended transfer. Will attempt to transfer the patient. Give the patient antibiotics as well as pain medications already.. 09/09 16:50 Order name: CBC with Diff; Complete Time: 17:24 rn 09/09 16:50 Order name: CMP; Complete Time: 17:40 rn 09/09 16:50 Order name: Lipase; Complete Time: 17:40 rn 09/09 16:50 Order name: Urinalysis w/ reflexes; Complete Time: 17:37 rn 09/09 19:19 Order name: Blood Culture Adult (2) ec2 09/09 19:19 Order name: Lactate w/ 2H reflex if indic.; Complete Time: 21:33 ec2 09/09 16:50 Order name: CT Abd/Pelvis - IV Contrast Only; Complete Time: 19:17 rn 09/09 16:50 Order name: US Abdomen Limited; Complete Time: 18:48 rn 09/09 16:50 Order name: IV Saline Lock; Complete Time: 17:11 rn 09/09 16:50 Order name: Labs collected and sent; Complete Time: 17:11 rn Administered Medications: 17:55 Drug: NS 0.9% IV 1000 ml IV at 1 bolus Per protocol; 1000 mL bolus Route: IV; Rate: 1 iw bolus; Site: left wrist; 17:55 Drug: Ondansetron IVP 4 mg IVP once; over 2 minutes Route: IVP; Site: left wrist; iw 20:07 Drug: morphine IVP or IV 4 mg IVP once over 4 mins Route: IVP; Infused Over: 4 mins; vc1 Site: left wrist; 20:41 Drug: Piperacillin-Tazobactam IVPB 3.375 grams IVPB once over 60 mins; (mix in NS 100 vc1 mL) Route: IVPB; Infused Over: 60 mins; Site: right antecubital; 20:41 Drug: NS 0.9% IV 1000 ml IV at 1 bolus Per protocol; 1000 mL bolus Route: IV; Rate: 1 vc1 bolus; Site: right antecubital; 23:17 Drug: morphine IVP or IV 4 mg IVP once over 4 mins Route: IVP; Infused Over: 4 mins; vc1 Site: right antecubital; 23:18 Follow up: Response: administered before transfer vc1 23:17 Drug: Ondansetron IVP 4 mg IVP once; over 2 minutes Route: IVP; Site: right antecubital;vc1 23:17 Follow up: Response: administered before transfer vc1 Disposition Summary: 09/09/23 19:28 Transfer Ordered Notes: Transfer Location: Other Acute Care Facility ec2 Reason: Higher level of care ec2 Condition: Stable ec2 Problem: new ec2 Symptoms: are unchanged ec2 Accepting Physician: transferring doc(12/27/23 23:18) vc1 Diagnosis - Acute cholecystitis ec2 Forms: - Medication Reconciliation Form ec2 - SBAR form ec2 Signatures: Dispatcher [employer] Dayron Shafer MD MD cha Williams, Irene, RN RN iw Nieto, Roman, MD MD rn Baxter, Heather, RN RN hb Calcote, Vanessa, RN RN vc1 Nicolas Joe MD MD ec2 Corrections: (The following items were deleted from the chart) 23:14 19:28 transferring doc ec2 vc1 23:18 23:14 transferring doc vc1 vc1
--- NOTE | 2023-09-09 19:29 | ER ---
Nurse's Notes [facility] Name: Christi Bland Age: 73 yrs Sex: Female : 1950 Arrival Date: 09/09/2023 Time: 16:23 Bed 18 Private MD: Diagnosis: Acute cholecystitis Presentation: 09/09 16:35 Chief complaint: Right sided abdominal pain and N/V x 2 days. Coronavirus screen: At this time, the client does not indicate any symptoms associated with coronavirus-19. Ebola Screen: No symptoms or risks identified at this time. Initial Sepsis Screen: Does the patient meet any 2 criteria? HR > 90 bpm. No. Patient's initial sepsis screen is negative. Does the patient have a suspected source of infection? No. Patient's initial sepsis screen is negative. Risk Assessment: Do you want to hurt yourself or someone else? Patient reports no desire to harm self or others. Onset of symptoms was September 07, 2023. 16:35 Method Of Arrival: Wheelchair hb 16:35 Acuity: LETICIA 3 hb Historical: - Allergies: 16:37 Vicodin; hb - Home Meds: 16:37 BuSpar Oral [Active]; Cymbalta 60 mg Oral capsule [Active]; Hydrocodone-Acetaminophen hb Oral [Active]; - PMHx: 16:37 Anxiety; Bipolar disorder; breast cancer; depressive disorder; hb - PSHx: 16:37 mastectomy; hb - Immunization history:: Adult Immunizations up to date. - Social history:: Smoking status: Patient denies any tobacco usage or history of. - Family history:: not pertinent. - Hospitalizations: : No recent hospitalization is reported. Screenin:14 [facility] ED Fall Risk Assessment (Adult) History of falling in the last 3 months, vc1 including since admission No falls in past 3 months (0 pts) Confusion or Disorientation No (0 pts) Intoxicated or Sedated No (0 pts) Impaired Gait No (0 pts) Mobility Assist Device Used No (0 pt) Altered Elimination No (0 pt) Score/Fall Risk Level 0 - 2 = Low Risk Oriented to surroundings, Maintained a safe environment, Educated pt \T\ family on fall prevention, incl call for assistance when getting out of bed. Abuse screen: Denies threats or abuse. Nutritional screening: No deficits noted. Tuberculosis screening: No symptoms or risk factors identified. Assessment: 17:58 Reassessment: Patient appears in no apparent distress at this time. Patient and/or iw family updated on plan of care and expected duration. Pain level reassessed. Patient is alert, oriented x 3, equal unlabored respirations, skin warm/dry/pink. 22:00 Reassessment: Patient and/or family updated on plan of care and expected duration. Pain vc1 level reassessed. Patient is alert, oriented x 3, equal unlabored respirations, skin warm/dry/pink. Patient states feeling better. Patient states symptoms have improved. Vital Signs: 16:35 BP 138 / 94; Pulse 112; Resp 17; Temp 99.8(TE); Pulse Ox 98% on R/A; Weight 40.37 kg; hb Height 5 ft. 1 in. ; Pain 10/10; 22:00 BP 151 / 92; Pulse 109; Resp 18; Pulse Ox 99% ; vc1 16:35 Body Mass Index 16.82 (40.37 kg, 154.94 cm) hb 16:35 Pain Scale: Adult hb ED Course: 16:26 Patient arrived in ED. mr 16:29 Alton Rodgers MD is Attending Physician. rn 16:30 Inserted saline lock: 22 gauge in left wrist, using aseptic technique. Blood collected. iw 16:37 Triage completed. hb 16:38 Arm band placed on. hb 17:49 Attending Physician role handed off by Alton Rodgers MD ec2 17:49 Nicolas Joe MD is Attending Physician. ec2 17:55 Taina Harper, RN is Primary Nurse. iw 18:35 US Abdomen Limited In Process Unspecified. EDMS 18:59 CT Abd/Pelvis - IV Contrast Only In Process Unspecified. EDMS 19:30 attempted to initiate transfer with [facility] transfer [place], called 3 times no jr12 answer. 19:40 initiated transfer with [facility] transfer [place]. spoke with Rina. jr12 20:04 [facility] returned call to initiate doc to doc. pt was no jr12 accepted. 20:09 attempted to call [facility] again, still no answer.. jr12 20:16 initiated trasnfer with [facility],spoke with Shana. will call back jr12 if any beds available. 20:29 Attending Physician role handed off by Nicolas Joe MD ec2 20:29 Dayron Sevilla MD is Attending Physician. ec2 23:14 No provider procedures requiring assistance completed. Patient did not have IV access vc1 during this emergency room visit. 23:16 Primary Nurse role handed off by Taina Harper RN vc1 Administered Medications: 17:55 Drug: NS 0.9% IV 1000 ml IV at 1 bolus Per protocol; 1000 mL bolus Route: IV; Rate: 1 iw bolus; Site: left wrist; 17:55 Drug: Ondansetron IVP 4 mg IVP once; over 2 minutes Route: IVP; Site: left wrist; iw 20:07 Drug: morphine IVP or IV 4 mg IVP once over 4 mins Route: IVP; Infused Over: 4 mins; vc1 Site: left wrist; 20:41 Drug: Piperacillin-Tazobactam IVPB 3.375 grams IVPB once over 60 mins; (mix in NS 100 vc1 mL) Route: IVPB; Infused Over: 60 mins; Site: right antecubital; 20:41 Drug: NS 0.9% IV 1000 ml IV at 1 bolus Per protocol; 1000 mL bolus Route: IV; Rate: 1 vc1 bolus; Site: right antecubital; 23:17 Drug: morphine IVP or IV 4 mg IVP once over 4 mins Route: IVP; Infused Over: 4 mins; vc1 Site: right antecubital; 23:18 Follow up: Response: administered before transfer vc1 23:17 Drug: Ondansetron IVP 4 mg IVP once; over 2 minutes Route: IVP; Site: right antecubital;vc1 23:17 Follow up: Response: administered before transfer vc1 Medication: 23:14 VIS not applicable for this client. vc1 Outcome: 19:28 ER care complete, transfer ordered by . ec2 23:14 Patient left the ED. vc1 23:18 Patient left the ED. vc1 Signatures: Dispatcher [employer] Christi Treviño, Reg Reg mr Taina Harper RN RN iw Nieto, Roman, MD MD rn Baxter, Heather, RN RN hb Calcote, Vanessa, RN RN vc1 Nicolas Joe MD MD 2 Gisele Hess [facility] Corrections: (The following items were deleted from the chart) 16:38 16:35 Chief complaint: Right sided abdominal pain x 2 days. hb hb 16:40 16:35 BP 138 / 94; Pulse 106bpm; Resp 17bpm; Pulse Ox 98% RA; Temp 99.8F Temporal; hb 40.37 kg; Height 5 ft. 1 in.; BMI: 16.8; Pain 10/10, Adult; hb
[2023-09-10 02:52] VITALS: TEMP 99.8
[2023-09-10 03:01] VITALS: BP 151/92; O2SAT 99
== END ==
LOC: ER 16:23
DX: K81.0 Acute cholecystitis (principal); F31.9 Bipolar disorder, unspecified; Z88.5 Allergy status to narcotic agent
CPT/HCPCS: 87040 ×2; 85025; 81001; 36415; 83605; 83690; 80053; 74177; 76705; 99284; Q9967; J2543; J2405 ×2; J7030 ×2

== ENCOUNTER → 2023-10-13 | Emergency (ER) | payer OTHER ==
[~2023-10-13] MED LIST changes: +LORazepam 2 MG/ML VIAL ONE; -MORPHINE 4 MG/ML SYR ONE; -NA CHLORIDE 0.9% 100 ML ONE; -ONDANSETRON 4 MG/2 ML VIAL ONE; -PIPERACIL/TAZO 3.375 GM VIAL IV ONE; +POTASSIUM 25 MEQ EFFERV TAB ONE
--- NOTE | 2023-10-13 13:22 | RAD REPORT ---
EXAM DESCRIPTION: RAD - Chest Single View - 10/13/2023 1:15 pm CLINICAL HISTORY: DYSPNEA Chest pain. COMPARISON: Chest Single View dated 09/07/2023 FINDINGS: Portable technique limits examination quality. The lungs are emphysematous but grossly clear. The heart is normal in size. No displaced fractures. IMPRESSION: COPD.
[2023-10-13 13:34] LABS: Lymphocytes % 14.8 % (15.3-44.8); MCV 88.3 fL (80-100); Platelets 233 thou/uL (152-406); RBC Red Blood Cell Count 3.62 M/uL (3.86-4.86)
[2023-10-13 14:04] LABS: Albumin 3.5 g/dL (3.4-5.0); Bilirubin Direct 0.2 mg/dL (0-0.2); Bilirubin Indirect, Calculated 0.3 mg/dL (0.2-0.8); Bilirubin Total 0.5 mg/dL (0.2-1.0); Potassium 3.3 mEq/L (3.5-5.1); Protein, Total 6.4 g/dL (6.4-8.2); Troponin High Sensitivity 16.5 pg/mL (<58.9)
[2023-10-13 14:20] LABS: Protime INR 0.99
[2023-10-13 14:42] LABS: SARS-COV-2 RT PCR NEGATIVE (NEGATIVE)
[2023-10-13 15:45] LABS: Specific Gravity 1.006 (1.005-1.030); Urine Bilirubin NEGATIVE (Negative); Urine Blood Negative (Negative); Urine Clarity Clear (Clear); Urine Color Colorless (Yellow); Urine Glucose NEGATIVE (Negative); Urine Protein NEGATIVE (Negative); Urine Urobilinogen Normal (Normal); Urine pH 6.5 (5.0-7.0)
--- NOTE | 2023-10-13 16:34 | RAD REPORT ---
EXAM DESCRIPTION: CTAbdomen Pelvis W Contrast - 10/13/2023 3:51 pm CLINICAL HISTORY: Abdominal pain. ABD PAIN COMPARISON: Abdomen Pelvis W Contrast dated 09/09/2023; Abdomen Pelvis W Contrast dated 04/16/2023 ; Abdomen Pelvis W Contrast dated 02/25/2023 TECHNIQUE: Biphasic CT imaging of the abdomen and pelvis was performed with 100 ml non-ionic IV cont rast. All CT scans are performed using dose optimization technique as appropriate and may include automated exposure control or mA/KV adjustment according to patient size. FINDINGS: The lung bases are emphysematous. Mild fatty liver is present. Cholecystectomy clips with mild pneumobilia. Common bile duct stent is i n place. The spleen, pancreas, adrenal glands and kidneys are within normal limits. No bowel obstruction, free air, free fluid or abscess. Moderate stool is retained throughout the colo n. Appendectomy clips. No evidence of significant lymphadenopathy. Mild lumbar degenerative changes. IMPRESSION: Cholecystectomy with common bile duct stent place. No pathologic biliary dilatation seen . Slight pneumobilia is present. Elsewhere, no acute finding is evident.
--- NOTE | 2023-10-13 16:57 | EDPHYS ---
Physician Documentation [facility] [place] Name: Christi Bland Age: 73 yrs Sex: Female : 1950 Arrival Date: 10/13/2023 Time: 12:52 Bed 17 Private MD: ED Physician Dayron Sevilla HPI: 10/13 16:47 This 73 yrs old Female presents to ER via EMS with complaints of ANXIETY , ABD fidel PAIN, SP STENT. 16:47 The patient presents to the emergency department with anxiety. Onset: The fidel symptoms/episode began/occurred 2 day(s) ago. Past psychiatric history: Prior diagnosis: bipolar disorder. The patient presents with abdominal pain in the epigastric area, in the upper abdomen. ANXIOUS , BIPOLAR,COPD. Associated signs and symptoms: The patient has no apparent associated signs or symptoms. Associated signs and symptoms: none. Historical: - Allergies: 12:55 Vicodin; kc6 - PMHx: 12:55 Anxiety; Bipolar disorder; breast cancer; depressive disorder; kc6 - PSHx: 12:55 mastectomy; kc6 - Immunization history:: Adult Immunizations up to date. - Social history:: Smoking status: Patient denies any tobacco usage or history of. - Family history:: not pertinent. ROS: 16:47 Constitutional: Negative for fever, chills, and weight loss, Eyes: Negative for injury, fidel pain, redness, and discharge, ENT: Negative for injury, pain, and discharge, Neck: Negative for injury, pain, and swelling, Cardiovascular: Negative for chest pain, palpitations, and edema, Respiratory: Negative for shortness of breath, cough, wheezing, and pleuritic chest pain, Back: Negative for injury and pain, : Negative for injury, bleeding, discharge, and swelling, MS/Extremity: Negative for injury and deformity, Skin: Negative for injury, rash, and discoloration, Neuro: Negative for headache, weakness, numbness, tingling, and seizure, Allergy/Immunology: Negative for hives, rash, and allergies, Endocrine: Negative for neck swelling, polydipsia, polyuria, polyphagia, and marked weight changes, Hematologic/Lymphatic: Negative for swollen nodes, abnormal bleeding, and unusual bruising, 16:47 Abdomen/GI: Positive for abdominal pain, of the epigastric area, 16:47 Psych: Positive for anxiety, Exam: 16:47 Constitutional: This is a well developed, well nourished patient who is awake, alert, fidel and in no acute distress. Head/Face: Normocephalic, atraumatic. Eyes: Pupils equal round and reactive to light, extra-ocular motions intact. Lids and lashes normal. Conjunctiva and sclera are non-icteric and not injected. Cornea within normal limits. Periorbital areas with no swelling, redness, or edema. ENT: Nares patent. No nasal discharge, no septal abnormalities noted. Tympanic membranes are normal and external auditory canals are clear. Oropharynx with no redness, swelling, or masses, exudates, or evidence of obstruction, uvula midline. Mucous membranes moist. Neck: Trachea midline, no thyromegaly or masses palpated, and no cervical lymphadenopathy. Supple, full range of motion without nuchal rigidity, or vertebral point tenderness. No Meningismus. Chest/axilla: Normal chest wall appearance and motion. Nontender with no deformity. No lesions are appreciated. Cardiovascular: Regular rate and rhythm with a normal S1 and S2. No gallops, murmurs, or rubs. Normal PMI, no JVD. No pulse deficits. Respiratory: Lungs have equal breath sounds bilaterally, clear to auscultation and percussion. No rales, rhonchi or wheezes noted. No increased work of breathing, no retractions or nasal flaring. Abdomen/GI: Soft, non-tender, with normal bowel sounds. No distension or tympany. No guarding or rebound. No evidence of tenderness throughout. Back: No spinal tenderness. No costovertebral tenderness. Full range of motion. Skin: Warm, dry with normal turgor. Normal color with no rashes, no lesions, and no evidence of cellulitis. MS/ Extremity: Pulses equal, no cyanosis. Neurovascular intact. Full, normal range of motion. Neuro: Awake and alert, GCS 15, oriented to person, place, time, and situation. Cranial nerves II-XII grossly intact. Motor strength 5/5 in all extremities. Sensory grossly intact. Cerebellar exam normal. Normal gait. Psych: Awake, alert, with orientation to person, place and time. Behavior, mood, and affect are within normal limits. 16:54 ECG was reviewed by the Attending Physician. fidel 16:59 Musculoskeletal/extremity: DVT Exam: No signs of deep vein thrombosis. no pain, no fidel swelling, no tenderness, negative Homans' sign noted on exam, no appreciated bluish discoloration, 16:59 Psych: Behavior/mood is anxious, Affect is animated, Oriented to person, place, time, Patient has no thoughts/intents to harm self or others. Judgement / Insight is normal. Memory is normal. Delusions/hallucinations are not present. Vital Signs: 12:54 BP 124 / 76; Pulse 98; Resp 16 S; Pulse Ox 99% on R/A; kc6 13:02 Temp 98.7(O); Weight 40.82 kg (M); Height 5 ft. 1 in. (R); kc6 14:20 BP 132 / 67; Pulse 78; Resp 18 S; Pulse Ox 100% on R/A; kc6 14:53 BP 146 / 88; Pulse 80; Resp 16; Pulse Ox 100% on R/A; cm10 13:02 Body Mass Index 17.01 (40.82 kg, 154.94 cm) kc6 Summer Coma Score: 16:47 Eye Response: spontaneous(4). Motor Response: obeys commands(6). Verbal Response: fidel oriented(5). Total: 15. MDM: 12:55 Patient medically screened. fidel 16:52 Differential diagnosis: acute psychotic break, depression, bowel obstruction, fidel gastritis, gastroesophageal reflux disease, non-specific abd pain, pancreatitis, Peptic Ulcer Disease, Ureterolithiasis, urinary tract infection. Data reviewed: vital signs, nurses notes, lab test result(s), EKG, radiologic studies, CT scan, plain films. Consideration of Admission/Observation Escalation of care including admission/observation considered. Independent interpretation of the following test(s) in the Emergency Department EKG: See my EKG interpretation above. Test considered but Not performed: MRI: NO MRCP. Care significantly affected by the following chronic conditions: Cancer, ANXIETY, BIPOLAR, DEPRESSION. Counseling: I had a detailed discussion with the patient and/or guardian regarding the historical points, exam findings, and any diagnostic results supporting the discharge/admit diagnosis, lab results, radiology results, the need for outpatient follow up, for definitive care, a family practitioner, a psychiatrist. 10/13 12:58 Order name: Basic Metabolic Panel; Complete Time: 14:08 fidel 10/13 12:58 Order name: CBC with Diff; Complete Time: 14:08 10/13 12:58 Order name: LFT's; Complete Time: 14:08 10/13 12:58 Order name: Magnesium; Complete Time: 14:08 10/13 12:58 Order name: NT PRO-BNP; Complete Time: 14:08 10/13 12:58 Order name: PT-INR; Complete Time: 16:22 10/13 12:58 Order name: Troponin HS; Complete Time: 14:08 10/13 12:58 Order name: Urinalysis w/ reflexes; Complete Time: 16:22 10/13 12:58 Order name: Blood Culture Adult (2) 10/13 12:58 Order name: COVID-19/FLU A+B/RSV; Complete Time: 16:22 10/13 12:58 Order name: Lipase; Complete Time: 14:08 10/13 12:58 Order name: XRAY Chest (1 view); Complete Time: 14:08 10/13 15:26 Order name: CT Abd/Pelvis - IV Contrast Only; Complete Time: 16:46 10/13 12:58 Order name: EKG; Complete Time: 12:59 10/13 12:58 Order name: Cardiac monitoring; Complete Time: 13:22 10/13 12:58 Order name: EKG - Nurse/Tech; Complete Time: 13:22 10/13 12:58 Order name: IV Saline Lock; Complete Time: 13:03 10/13 12:58 Order name: Labs collected and sent; Complete Time: 13:22 10/13 12:58 Order name: O2 Per Protocol; Complete Time: 13:03 10/13 12:58 Order name: O2 Sat Monitoring; Complete Time: 13:03 [facility] EC:54 Rate is 82 beats/min. Rhythm is regular. QRS [place] is Normal. NH interval is shortened fidel at 126 msec. QRS interval is normal. QT interval is prolonged at 490 msec. No Q waves. T waves are Normal. No ST changes noted. Clinical impression: NSR w/ Non-specific ST/T Changes and No evidence of ischemia. Interpreted by me. Reviewed by me. Administered Medications: 13:38 Drug: NS 0.9% IV 1000 ml IV at 75 ml/hr continuous Route: IV; Rate: 75 ml/hr; Site: kc6 left antecubital; 17:22 Follow up: Response: No adverse reaction; IV Status: Completed infusion cm10 14:20 Drug: Potassium PO Effervescent Tablet 50 mEq PO once; dissolve in 4 ounces of water or kc6 juice Route: PO; 17:22 Follow up: Response: No adverse reaction cm10 15:41 Drug: Ativan IVP 1 mg IVP once Route: IVP; Site: left antecubital; cm10 17:21 Follow up: Response: No adverse reaction cm10 Disposition Summary: 10/13/23 16:56 Discharge Ordered Notes: Location: Home fidel Problem: new fidel Symptoms: have improved fidel Condition: Stable fidel Diagnosis - Abdominal pain, Generalized fidel - Anxiety disorder, unspecified fidel - Bipolar disorder, unspecified fidel - Abnormal electrocardiogram [ECG] [EKG] fidel - COPD/ Chronic obstructive pulmonary disease, unspecified fidel - Hypokalemia fidel Followup: fidel - With: Private Physician - When: 2 - 3 days - Reason: Recheck today's complaints, Continuance of care, Re-evaluation by your physician Followup: fidel - With: Bret Cintron MD - When: 2 - 3 days - Reason: Recheck today's complaints, Re-evaluation by your physician Followup: fidel - With: Jose Ace MD - When: 2 - 3 days - Reason: Recheck today's complaints, Re-evaluation by your physician Discharge Instructions: - Discharge Summary Sheet ifdel - Abdominal Pain, Adult fidel - Chronic Obstructive Pulmonary Disease fidel - Abdominal Pain, Adult, [id number]-[id number] fidel - Hypokalemia fidel - Supporting Someone With Bipolar Disorder fidel - Supporting Someone With Anxiety fidel - Managing Anxiety, Adult fidel Forms: - Medication Reconciliation Form fidel - Thank You Letter fidel - Antibiotic Education fidel - Prescription Opioid Use fidel - Patient Portal Instructions fidel - Leadership Thank You Letter [facility] Prescriptions: - Hydroxyzine HCl 50 mg Oral Tablet - take 1 tablet ORAL route every 8 hours As needed; 20 tablet; Refills: 0, fidel Product Selection Permitted Signatures: Dispatcher [employer] Dayron Shafer MD MD cha Campbell, Kaitlyn, RN RN kc6 Missy Kaur RN RN cm10
--- NOTE | 2023-10-13 16:57 | ER ---
Nurse's Notes [facility] Name: Christi Bland Age: 73 yrs Sex: Female : 1950 Arrival Date: 10/13/2023 Time: 12:52 Bed 17 Private MD: Diagnosis: Abdominal pain, Generalized;Anxiety disorder, unspecified;Bipolar disorder, unspecified;Abnormal electrocardiogram [ECG] [EKG];COPD/ Chronic obstructive pulmonary disease, unspecified;Hypokalemia Presentation: 10/13 12:54 Chief complaint: EMS states: they were toned out for shortness of breath and "can't kc6 move". pt reports n/v x3mo and muscle spasms. Coronavirus screen: At this time, the client does not indicate any symptoms associated with coronavirus-19. Ebola Screen: No symptoms or risks identified at this time. Initial Sepsis Screen: Does the patient meet any 2 criteria? No. Patient's initial sepsis screen is negative. Does the patient have a suspected source of infection? No. Patient's initial sepsis screen is negative. Risk Assessment: Do you want to hurt yourself or someone else? Patient reports no desire to harm self or others. Onset of symptoms was October 13, 2023. 12:54 Method Of Arrival: EMS: [facility] kc6 12:54 Acuity: LETICIA 3 kc6 Triage Assessment: 13:01 General: Appears in no apparent distress. comfortable, well groomed, well developed, kc6 Behavior is cooperative, appropriate for age, crying. EENT: No signs and/or symptoms were reported regarding the EENT system. Neuro: Level of Consciousness is awake, alert, obeys commands, Oriented to person, place, time, situation, Appropriate for age. Cardiovascular: Capillary refill < 3 seconds. Respiratory: Reports shortness of breath Airway is patent Trachea midline Respiratory effort is even, unlabored, Respiratory pattern is regular, symmetrical. Derm: No signs and/or symptoms reported regarding the dermatologic system. Skin is intact, is healthy with good turgor, Skin is pink, warm \\T\\ dry. Musculoskeletal: Circulation, motion, and sensation intact. Capillary refill < 3 seconds, Range of motion: intact in all extremities. Historical: - Allergies: 12:55 Vicodin; kc6 - PMHx: 12:55 Anxiety; Bipolar disorder; breast cancer; depressive disorder; kc6 - PSHx: 12:55 mastectomy; kc6 - Immunization history:: Adult Immunizations up to date. - Social history:: Smoking status: Patient denies any tobacco usage or history of. - Family history:: not pertinent. Screenin:02 [facility] ED Fall Risk Assessment (Adult) History of falling in the last 3 months, kc6 including since admission No falls in past 3 months (0 pts) Confusion or Disorientation No (0 pts) Intoxicated or Sedated No (0 pts) Impaired Gait No (0 pts) Mobility Assist Device Used No (0 pt) Altered Elimination No (0 pt) Score/Fall Risk Level 0 - 2 = Low Risk. Abuse screen: Denies threats or abuse. Denies injuries from another. Nutritional screening: No deficits noted. Tuberculosis screening: No symptoms or risk factors identified. Assessment: 13:02 Reassessment: please see triage. kc 14:20 Reassessment: Patient appears in no apparent distress at this time. No changes from [facility] previously documented assessment. Patient and/or family updated on plan of care and expected duration. Pain level reassessed. Patient is alert, oriented x 3, equal unlabored respirations, skin warm/dry/pink. 15:07 Reassessment: Assumed care of patient at this time. Pt reports that her shortness of cm10 breath has improved. Respirations even and unlabored on RA. IVF infusing, IV site clean, dry and intact. Updated pt on plan of care and pt made aware that urine sample was pending. Call light at bedside. General: Appears in no apparent distress. comfortable, Behavior is calm, cooperative. Pain: Denies pain. Neuro: No deficits noted. Level of Consciousness is awake, alert, Oriented to person, place, time, situation. Cardiovascular: No deficits noted. Patient's skin is warm and dry. Respiratory: Reports shortness of breath has improved Airway is patent Respiratory effort is even, unlabored, Respiratory pattern is regular, symmetrical, Breath sounds are diminished bilaterally. GI: No deficits noted. No signs and/or symptoms were reported involving the gastrointestinal system. : No deficits noted. No signs and/or symptoms were reported regarding the genitourinary system. EENT: No deficits noted. No signs and/or symptoms were reported regarding the EENT system. Derm: No deficits noted. No signs and/or symptoms reported regarding the dermatologic system. Musculoskeletal: No deficits noted. No signs and/or symptoms reported regarding the musculoskeletal system. Range of motion: intact in all extremities. 15:35 Reassessment: PT noted to be anxious, provider made aware and pt medicated per MAR. cm10 17:19 Reassessment: Upon going to patient's room to discharge pt, pt yelling at nurse and cm10 cursing at nurse stating that she is not going home. This nurse assured pt that she is being discharged and needed to call for her ride. Pt continues yelling at this nurse. Dr. Sevilla made aware that patient is not wanting to be discharged and Charge Nurse Nathalia made aware. Dr. Sevilla and charge nurse at bedside discharging pt. Vital Signs: 12:54 BP 124 / 76; Pulse 98; Resp 16 S; Pulse Ox 99% on R/A; kc6 13:02 Temp 98.7(O); Weight 40.82 kg (M); Height 5 ft. 1 in. (R); kc6 14:20 BP 132 / 67; Pulse 78; Resp 18 S; Pulse Ox 100% on R/A; kc6 14:53 BP 146 / 88; Pulse 80; Resp 16; Pulse Ox 100% on R/A; cm10 13:02 Body Mass Index 17.01 (40.82 kg, 154.94 cm) kc6 [place] Coma Score: 16:47 Eye Response: spontaneous(4). Motor Response: obeys commands(6). Verbal Response: fidel oriented(5). Total: 15. ED Course: 12:53 Patient arrived in ED. kc6 12:55 Dayron Sevilla MD is Attending Physician. [facility] 12:55 Triage completed. kc6 12:55 Arm band placed on. kc6 12:56 Maintain EMS IV. Dressing intact. Good blood return noted. Site clean \\T\\ dry. Gauge \\T\\ mack 6 site: 20G LAC. Patient maintains SpO2 saturation greater than 95% on room air. 13:01 Marilee Monk, RN is Primary Nurse. kc6 13:02 Patient has correct armband on for positive identification. Bed in low position. Call kc light in reach. Side rails up X2. Client placed on continuous cardiac and pulse oximetry monitoring. NIBP monitoring applied. 13:17 XRAY Chest (1 view) In Process Unspecified. EDMS 13:26 EKG done, by ED staff, reviewed by Dayron Sevilla MD. em1 14:51 Primary Nurse role handed off by Marilee Monk RN cm10 14:51 Missy Kaur, RN is Primary Nurse. cm10 15:21 Urinalysis w/ reflexes Sent. cm10 15:[address] via stretcher. cm10 15:52 CT Abd/Pelvis - IV Contrast Only In Process Unspecified. EDMS 15:[address] back from [address]. cm10 16:57 Bret Cintron MD is Referral Physician. [facility] 16:57 Jose Ace MD is Referral Physician. [facility] 17:27 Provided Education on: discharge instructions. ap3 17:27 No provider procedures requiring assistance completed. IV discontinued, intact, ap3 bleeding controlled, No redness/swelling at site. Pressure dressing applied. Administered Medications: 13:38 Drug: NS 0.9% IV 1000 ml IV at 75 ml/hr continuous Route: IV; Rate: 75 ml/hr; Site: kc6 left antecubital; 17:22 Follow up: Response: No adverse reaction; IV Status: Completed infusion cm10 14:20 Drug: Potassium PO Effervescent Tablet 50 mEq PO once; dissolve in 4 ounces of water or kc6 juice Route: PO; 17:22 Follow up: Response: No adverse reaction cm10 15:41 Drug: Ativan IVP 1 mg IVP once Route: IVP; Site: left antecubital; cm10 17:21 Follow up: Response: No adverse reaction cm10 Medication: 17:27 VIS not applicable for this client. ap3 Outcome: 16:56 Discharge ordered by . [facility] 17:27 Discharged to home with family, ap3 17:27 Condition: good 17:27 Discharge instructions given to patient, Instructed on discharge instructions, follow up and referral plans. medication usage, Demonstrated understanding of instructions, follow-up care, medications, Prescriptions given X 1, 17:53 Patient left the ED. cm10 Signatures: Dispatcher [employer] EDMS Dayron Sevilla MD MD cha Martinez, Eric em1 Nathalia Farrell RN RN ap3 Marilee Monk RN RN kc6 Missy Kaur RN RN cm10 Corrections: (The following items were deleted from the chart) 15:53 15:00 BP 132 / 063; Pulse 69bpm; Resp 16bpm; Pulse Ox 97% RA; cm10 cm10
[2023-10-14 03:34] VITALS: BP 146/88; TEMP 98.7; O2SAT 100
== END ==
LOC: ER 12:52
DX: R10.84 Generalized abdominal pain (principal); F41.9 Anxiety disorder, unspecified; E87.6 Hypokalemia; R94.31 Abnormal electrocardiogram [ECG] [EKG]; J44.9 Chronic obstructive pulmonary disease, unspecified; F31.9 Bipolar disorder, unspecified; Z11.52 Encounter for screening for COVID-19; Z88.5 Allergy status to narcotic agent
CPT/HCPCS: 87040 ×2; 85025; 80048; 36415; 83735; 85610; 80076; 81003; 84484; 83690; 83880; 0241U; 74177; 71045; Q9967; J7030; 93005